=== PATIENT | female | born 1930 | race Caucasian/White ===

== ENCOUNTER 2018-08-17 10:03 | Inpatient (IN) ==
[2018-08-17] MEDS ORDERED: SODIUM CHLORIDE 0.9% 1000ML 1,000 ML IV SCH (10:15)
[2018-08-17 10:24] LABS: Basophils # (auto) 0.03 K/uL (0-0.2); Basophils % (auto) 0.3 %; Eosinophils # (auto) 0.17 K/uL (0-0.5); Eosinophils % (auto) 1.5 %; Hematocrit (blood only) 31.1 % (37-47); Hemoglobin 10.3 g/dL (12.0-16.0); Immature Granulocytes # (auto) 0.09 K/uL (0.00-0.02); Immature Granulocytes % (auto) 0.8 %; Lymphocytes # (auto) 1.62 K/uL (1.2-3.4); Lymphocytes % (auto) 14.6 %; Mean Corpuscular Hgb Conc 33.1 g/dL (32-36); Mean Corpuscular Volume 94.8 fL (80-100); Mean Platelet Volume 9.8 fL (7.4-10.4); Monocytes # (auto) 1.01 K/uL (0.11-0.59); Monocytes % (auto) 9.1 %; Neutrophils # (auto) 8.21 K/uL (1.4-6.5); Neutrophils % (auto) 73.7 %; Platelet Count 265 K/uL (130-400); RDW Coefficient of Variation 17.7 % (11.5-14.5); RDW Standard Deviation 60.4 fL (36.4-46.3); Red Blood Count 3.28 M/uL (4.2-5.4); White Blood Count 11.13 K/uL (4.8-10.8)
[2018-08-17 10:38] LABS: Albumin Level 2.5 gm/dl (3.4-5.0); BUN Creatinine Ratio 31.9 (10-20); Calcium 8.7 mg/dl (8.5-10.1); Creatinine Clr Calc Pharmacy 12.2 ml/min; Est GFR (Non-African American) 15.5; Magnesium 2.3 mg/dl (1.8-2.4); Potassium 5.6 mmol/L (3.5-5.1)
[2018-08-17 10:41] LABS: Albumin Globulin Ratio 0.6 (0.9-2); Bilirubin,Total 0.3 mg/dl (0.2-1); Globulin 4.1 gm/dl (2.5-4.0); Total Protein 6.6 gm/dl (6.4-8.2)
[2018-08-17] MEDS ORDERED: SODIUM CHLORIDE 0.9% 1000ML 250 ML IV ONE (11:11)
[2018-08-17 11:51] LABS: Appearance Urine Turbid (Clear); Bacteria Urine Automated 4+ (Negative); Bilirubin Urine Negative (Negative); Blood Urine 1+ (Negative); Cast Urine Automated 0 /lpf (0-5); Color Urine Yellow; Epithelial Cell Urine Auto 20-30 /lpf (0-5); Glucose Urine UA Negative (Negative); Ketones Urine Negative (Negative); Leukocyte Esterase Urine 3+ (Negative); Nitrite Urine Negative (Negative); Protein Urine Negative (Negative); Specific Gravity Urine 1.017 (1.000-1.030); Urobilinogen Urine Negative (Negative); WBC Urine Automated >30 /hpf (0-5)
[2018-08-17] MEDS ORDERED: cefTRIAXone SODIUM 1,000 MG in DEXTROSE 5% 50 ML IV STA (11:57)
[2018-08-17] MEDS ORDERED: cefTRIAXone SODIUM 1000MG/50ML D5W ONE (11:59)
--- NOTE | 2018-08-17 12:02 | Emergency Department Note ---
Entered by Melyssa Timmons acting as a scribe for History of Present Illness General Chief complaint: Recheck/Abnormal Lab/Rx Stated complaint: abnormal labs Source: patient Mode of arrival: EMS Limitations: altered mental status History of Present Illness Provider complaint: Abnormal labs Onset (ago): hour(s) (today) Pain Consistency: + other (episode) Quality: + other (abnormal labs) Associated symptoms: + other (Denies: diarrhea, abdominal pain); no nausea/vomiting The patient is an 88 year old female with a history diabetes and heart disease who presents to the Emergency Room with complaints of an episode of abnormal labs starting today. Patient is currently at [facility]. The patient r eports that she does not feel sick and denies any vomiting, diarrhea, and abdominal pain. She states that she fell 1.5 weeks ago and subsequently had 2 pins placed in her left hip. She notes that she has been at rehab since and that rehab is going well. The patient reports that she received her pain medication this morning, but she is fairly groggy. HPI limited secondary to altered mental status. Home Medications Home Medications Medication Instructions Recorded Confirmed Type acetaminophen [Tylenol Extra 500 mg PO Q4H PRN 08/17/18 08/17/18 History Strength] allopurinol 300 mg PO DAILY 08/17/18 08/17/18 History aspirin 81 mg PO DAILY 08/17/18 08/17/18 History atorvastatin 10 mg PO HS 08/17/18 08/17/18 History bisacodyl 10 mg [place] DAILY PRN 08/17/18 08/17/18 History carvedilol 12.5 mg PO BIDM 08/17/18 08/17/18 History cholecalciferol (vitamin D3) 2,000 unit PO DAILY 08/17/18 08/17/18 History [Vitamin D3] docusate sodium [Colace] 100 mg PO BID 08/17/18 08/17/18 History enoxaparin [Lovenox] 30 mg SUBCUT DAILY 08/17/18 08/17/18 History ferrous sulfate 325 mg PO DAILY 08/17/18 08/17/18 History furosemide [Lasix] 40 mg PO DAILY 08/17/18 08/17/18 History glipizide 2.5 mg PO DAILY 08/17/18 08/17/18 History insulin aspart U-100 [Novolog 1 sliding scale dose SUBCUT ACHS 08/17/18 08/17/18 History U-100 Insulin aspart] lidocaine [Lidoderm] 2 patch TOPICAL QAM 08/17/18 08/17/18 History lisinopril 10 mg PO DAILY 08/17/18 08/17/18 History magnesium hydroxide 30 ml PO DAILY PRN 08/17/18 08/17/18 History olanzapine 7.5 mg PO HS 08/17/18 08/17/18 History pantoprazole [Protonix] 40 mg PO BID 08/17/18 08/17/18 History sennosides [senna] 8.6 mg PO QAM PRN 08/17/18 08/17/18 History sertraline 25 mg PO DAILY 08/17/18 08/17/18 History sodium phosphates [Fleet Enema] 133 ml [place] DAILY PRN 08/17/18 08/17/18 History tramadol 50 mg PO Q4H PRN 08/17/18 08/17/18 History Allergies Allergy/AdvReac Type Severity Reaction Status Date / Time No Known Allergies Allergy Unverified 08/17/18 10:54 Past Med/Surg History Medical History DM2 (diabetes mellitus, type 2) (Chronic) CHF (congestive heart failure) Hyperkalemia (Acute) Acute renal insufficiency (Acute) UTI (urinary tract infection) (Acute) Heart disease (Chronic) Diabetes (Chronic) Surgical History Status post hip surgery (Resolved) Social History Preferred Language: Marshallese Communication Ability: Impaired Routeman Required: No Beliefs That Will Affect Care: None marital status: Current Living Situation: Rehab current occupational status: retired Other Information That Helps Us Care for You: No Feels Safe at Home: Yes Safety Concerns: Feels Safe At This Time Smoking Status: Never smoker Do You Dip or Chew Tobacco: No Second Hand Exposure: No Tobacco Cessation Education Requested by Patient: No Hx Alcohol Use: No Hx Substance Use: No Review of Systems Other (Limited secondary to altered mental status) Physical Exam Vital Signs Vital Signs - 24 hr 08/17/18 23:13 08/18/18 04:00 08/18/18 08:03 Temperature 36.4 C L 37.0 C Temperature Source Oral Oral Pulse Rate Pulse Rate [Left Finger] 72 83 77 Respiratory Rate 20 16 19 Respiratory Effort / Characteristics Respiratory Depth Respiratory Pattern Blood Pressure [Left Arm] Blood Pressure [Right Arm] 129/60 141/73 H 127/57 L Blood Pressure Mean [Left Arm] Blood Pressure Mean [Right Arm] 83 95 80 Blood Pressure Position [Left Arm] Blood Pressure Position [Right Arm] Lying Lying Pulse Oximetry 98 91 91 Oxygen Delivery Method Nasal Cannula Room Air Room Air Oxygen Flow Rate 2 08/18/18 09:30 08/18/18 11:09 08/18/18 12:00 Temperature 36.5 C Temperature Source Axillary Pulse Rate 75 Pulse Rate [Left Finger] 76 Respiratory Rate 18 Respiratory Effort / Characteristics Non-Labored Spontaneous Respiratory Depth Normal Normal Respiratory Pattern Regular Blood Pressure [Left Arm] 112/70 Blood Pressure [Right Arm] Blood Pressure Mean [Left Arm] 84 Blood Pressure Mean [Right Arm] Blood Pressure Position [Left Arm] Lying Blood Pressure Position [Right Arm] Pulse Oximetry 91 Oxygen Delivery Method Room Air Room Air Oxygen Flow Rate 08/18/18 15:13 08/18/18 16:00 08/18/18 19:51 Temperature 36.8 C 36.8 C Temperature Source Oral Oral Pulse Rate Pulse Rate [Left Finger] 66 70 Respiratory Rate 24 14 Respiratory Effort / Characteristics Non-Labored Respiratory Depth Normal Normal Respiratory Pattern Regular Blood Pressure [Left Arm] 149/77 H Blood Pressure [Right Arm] 132/60 Blood Pressure Mean [Left Arm] 101 Blood Pressure Mean [Right Arm] 84 Blood Pressure Position [Left Arm] Blood Pressure Position [Right Arm] Lying Pulse Oximetry 95 93 Oxygen Delivery Method Room Air Room Air Oxygen Flow Rate Vital signs reviewed. General: Elderly sedate-appearing female, in no significant distress. HEENT: No scleral icterus, PERRLA, neck supple. Atraumatic. Cardiovascular: Regular rate and rhythm, no extra sounds. Pulmonary: Clear to auscultation bilaterally, normal work of breathing. Abdomen: Soft, nontender, nondistended, positive bowel sounds. Musculoskeletal: Atraumatic, no peripheral edema. Walking boot on left foot. Neurologic: Patient is somnolent but arousable. She answers questions with one word answers, seemingly appropriately. Skin: Warm, dry, no rash Course 1024: The patient was evaluated in room A2, and a complete history and physical examination were performed. 1204: I reviewed the patient's case with Dr. Thayer - Hospitalist, [facility]. Dr. Thayer will evaluate the patient for further management. Consultations Consultation #1: I reviewed the patient's case with Dr. Thayer - Hospitalist, [facility]. Dr. Thayer will evaluate the patient for further management. Time: 12:04 Administered Medications Acetaminophen (Tylenol) 650 mg PO Q4H PRN PRN Reason: Pain or Fever Stop: 09/16/18 14:26 Last Admin: 08/17/18 16:07 Dose: 650 mg Documented by: [id number] Allopurinol (Zyloprim) 300 mg PO DAILY MARGARET Stop: 09/17/18 08:59 Last Admin: 08/18/18 08:50 Dose: 300 mg Documented by: [id number] Aspirin (Ecotrin Ectab) 81 mg PO DAILY AMRGARET Stop: 09/17/18 08:59 Last Admin: 08/18/18 08:50 Dose: 81 mg Documented by: [id number] Atorvastatin Calcium (Lipitor) 10 mg PO HS MARGARET Stop: 09/16/18 20:59 Last Admin: 08/18/18 20:04 Dose: 10 mg Documented by: [id number] Admin: 08/18/18 00:18 Dose: Not Given Documented by: [id number] Carvedilol (Coreg) 12.5 mg PO BIDM [facility] Stop: 09/16/18 16:59 Last Admin: 08/18/18 16:47 Dose: 12.5 mg Documented by: [id number] Admin: 08/18/18 08:48 Dose: 12.5 mg Documented by: [id number] Admin: 08/17/18 16:04 Dose: 12.5 mg Documented by: [id number] Docusate Sodium (Colace) 100 mg PO BID MARGARET Stop: 09/16/18 20:59 Last Admin: 08/18/18 20:05 Dose: Not Given Documented by: [id number] Admin: 08/18/18 08:49 Dose: Not Given Documented by: [id number] Admin: 08/17/18 21:08 Dose: Not Given Documented by: [id number] Enoxaparin Sodium (Lovenox) 30 mg SQ DAILY MARGARET Stop: 09/17/18 08:59 Last Admin: 08/18/18 09:20 Dose: 30 mg Documented by: [id number] Ferrous Sulfate (Feosol) 325 mg PO DAILY [facility] Stop: 09/17/18 08:59 Last Admin: 08/18/18 08:49 Dose: 325 mg Documented by: [id number] Sodium Chloride (Nss 1000ml) 1,000 mls @ 80 mls/hr IV .[id number] [facility] Stop: 09/16/18 14:26 Last Admin: 08/18/18 16:28 Dose: 80 mls/hr Documented by: [id number] Infusion: 08/18/18 16:28 Dose: 80 mls/hr Documented by: [id number] Admin: 08/18/18 04:31 Dose: 80 mls/hr Documented by: [id number] Infusion: 08/18/18 04:31 Dose: 80 mls/hr Documented by: [id number] Admin: 08/17/18 16:02 Dose: 80 mls/hr Documented by: [id number] Ceftriaxone Sodium 1,000 mg/ (Dextrose) 50 mls @ 100 mls/hr IV Q24H MARGARET; Pr otocol Stop: 08/27/18 11:59 Last Infusion: 08/18/18 12:05 Dose: 0 mls/hr Documented by: [id number] Admin: 08/18/18 11:34 Dose: 100 mls/hr Documented by: [id number] Insulin Aspart (Novolog Flexpen) 0 units SC ACHS MARGARET Stop: 09/16/18 16:29 Last Admin: 08/18/18 16:47 Dose: Not Given Documented by: [id number] Cosigned by: [id number] Admin: 08/18/18 11:34 Dose: Not Given Documented by: [id number] Cosigned by: [id number] Admin: 08/18/18 08:52 Dose: Not Given Documented by: [id number] Cosigned by: [id number] Admin: 08/17/18 21:08 Dose: Not Given Documented by: [id number] Cosigned by: [id number] Admin: 08/17/18 16:36 Dose: Not Given Documented by: [id number] Lidocaine (Lidoderm 5%) 2 patch TD QAM [facility] Stop: 09/17/18 08:59 Last Admin: 08/18/18 08:51 Dose: 2 patch Documented by: [id number] Miscellaneous (Remove Lidoderm Patch) 1 ea N/A DAILY@2100 [facility] Stop: 09/16/18 20:59 Last Admin: 08/18/18 20:05 Dose: 1 ea Documented by: [id number] Admin: 08/17/18 23:13 Dose: 1 ea Documented by: [id number] Olanzapine (Zyprexa) 7.5 mg PO HS MARGARET Stop: 09/16/18 20:59 Last Admin: 08/18/18 20:05 Dose: 7.5 mg Documented by: [id number] Admin: 08/18/18 00:18 Dose: Not Given Documented by: [id number] Pantoprazole Sodium (Protonix) 40 mg PO BID MARGARET Stop: 09/16/18 20:59 Last Admin: 08/18/18 20:04 Dose: 40 mg Documented by: [id number] Admin: 08/18/18 08:49 Dose: 40 mg Documented by: [id number] Admin: 08/18/18 00:18 Dose: Not Given Documented by: [id number] Sertraline HCl (Zoloft) 25 mg PO DAILY MARGARET Stop: 09/17/18 08:59 Last Admin: 08/18/18 08:50 Dose: 25 mg Documented by: [id number] Vitamin D (Vitamin D3) 2,000 units PO DAILY MARGARET Stop: 09/17/18 08:59 Last Admin: 08/18/18 08:49 Dose: 2,000 units Documented by: [id number] Discontinued Medications Ceftriaxone Sodium (Rocephin) Confirm Administered Dose 1,000 mg .ROUTE .STK-MED ONE Stop: 08/17/18 12:00 Last Admin: 08/17/18 12:00 Dose: 1,000 mg Documented by: [id number] Sodium Chloride (Nss 1000ml) 1,000 mls @ 100 mls/hr IV .Q10H MARGARET Stop: 08/17/18 20:14 Last Infusion: 08/17/18 11:17 Dose: 0 mls/hr Documented by: [id number] Admin: 08/17/18 10:39 Dose: 100 mls/hr Documented by: [id number] Sodium Chloride (Nss 1000ml) 250 mls @ 999 mls/hr IV .Q16M ONE Stop: 08/17/18 11:26 Last Infusion: 08/17/18 11:36 Dose: 0 mls/hr Documented by: [id number] Admin: 08/17/18 11:17 Dose: 999 mls/hr Documented by: [id number] Ceftriaxone Sodium 1,000 mg/ (Dextrose) 60 mls @ 100 mls/hr IV NOW STA; Protocol Stop: 08/17/18 12:32 Last Admin: 08/17/18 12:00 Dose: Not Given Documented by: [id number] Sodium Polystyrene Sulfonate (Kayexalate) 15 gm PO NOW ONE Stop: 08/17/18 13:05 Last Admin: 08/17/18 13:17 Dose: 15 gm Documented by: [id number] Medical Decision Making Differential Diagnosis Differential diagnosis: Etiologies such as metabolic, infection, hypo/hyperglycemia, electrolyte abnormalities, cardiac sources, intracerebral event, toxicologic, neurologic, as well as others were entertained. Medical Records Attestation: I reviewed the patient's medical records. Home Medications Current Medication List: was personally reviewed by me Laboratory Data Attestation: I reviewed the patient's lab results. Result diagrams: 08/18/18 05:28 08/18/18 05:28 Lab Results 08/17/18 08/17/18 08/17/18 Range/Units 10:08 10:08 10:08 WBC 11.13 H (4.8-10.8) K/uL RBC 3.28 L (4.2-5.4) M/uL Hgb 10.3 L (12.0-16.0) g/dL Hct 31.1 L (37-47) % MCV 94.8 (80-100) fL MCH 31.4 (25-34) pg MCHC 33.1 (32-36) g/dL RDW Std Deviation 60.4 H (36.4-46.3) fL RDW Coeff of Maci 17.7 H (11.5-14.5) % Plt Count 265 (130-400) K/uL MPV 9.8 (7.4-10.4) fL Immature Gran % (Auto) 0.8 % Neut % (Auto) 73.7 % Lymph % (Auto) 14.6 % [place] % (Auto) 9.1 % Eos % (Auto) 1.5 % Baso % (Auto) 0.3 % Immature Gran # (Auto) 0.09 H (0.00-0.02) K/uL Neut # (Auto) 8.21 H (1.4-6.5) K/uL Lymph # (Auto) 1.62 (1.2-3.4) K/uL [place] # (Auto) 1.01 H (0.11-0.59) K/uL Eos # (Auto) 0.17 (0-0.5) K/uL Baso # (Auto) 0.03 (0-0.2) K/uL PT (9.0-12.0) Seconds INR (0.9-1.1) APTT (21.0-31.0) Seconds PTT Ratio Sodium 132 L (136-145) mmol/L Potassium 5.6 H (3.5-5.1) mmol/L Chloride 98 (98-107) mmol/L Carbon Dioxide 26 (21-32) mmol/L Anion Gap 8.0 (3-11) BUN 84 H (7-18) mg/dl Creatinine 2.63 H (0.6-1.2) mg/dl Est Cr Clr Drug Dosing 12.2 ml/min Est GFR ( Amer) 18.0 Est GFR (Non-Af Amer) 15.5 BUN/Creatinine Ratio 31.9 H (10-20) Glucose 136 H (70-99) mg/dl POC Glucose (70-99) Osmolality (280-300) mOsm/kg Calcium 8.7 (8.5-10.1) mg/dl Magnesium 2.3 (1.8-2.4) mg/dl Total Bilirubin 0.3 (0.2-1) mg/dl AST 15 (15-37) U/L ALT 17 (12-78) U/L Alkaline Phosphatase 131 H (45-117) U/L NT-Pro-B Natriuret Pep 1802 H (0-1800) pg/ml Total Protein 6.6 (6.4-8.2) gm/dl Albumin 2.5 L (3.4-5.0) gm/dl Globulin 4.1 H (2.5-4.0) gm/dl Albumin/Globulin Ratio 0.6 L (0.9-2) Urine Color Urine Appearance (Clear) Urine pH (4.5-7.5) Ur Specific [place] (1.000-1.030) Urine Protein (Negative) Urine Glucose (UA) (Negative) Urine Ketones (Negative) Urine Blood (Negative) Urine Nitrite (Negative) Urine Bilirubin (Negative) Urine Urobilinogen (Negative) Ur Leukocyte Esterase (Negative) Urine WBC (Auto) (0-5) /hpf Urine RBC (Auto) (0-4) /hpf U Hyaline Cast (Auto) (0-5) /lpf U Epithel Cells (Auto) (0-5) /lpf Urine Bacteria (Auto) (Negative) Ur Random Creatinine mg/dl Ur Random Sodium mmol/L Stool Occult Bld Scrn (Negative) 08/17/18 08/17/18 08/17/18 Range/Units 11:30 11:30 11:30 WBC (4.8-10.8) K/uL RBC (4.2-5.4) M/uL Hgb (12.0-16.0) g/dL Hct (37-47) % MCV (80-100) fL MCH (25-34) pg MCHC (32-36) g/dL RDW Std Deviation (36.4-46.3) fL RDW Coeff of Maci (11.5-14.5) % Plt Count (130-400) K/uL MPV (7.4-10.4) fL Immature Gran % (Auto) % Neut % (Auto) % Lymph % (Auto) % [place] % (Auto) % Eos % (Auto) % Baso % (Auto) % Immature Gran # (Auto) (0.00-0.02) K/uL Neut # (Auto) (1.4-6.5) K/uL Lymph # (Auto) (1.2-3.4) K/uL [place] # (Auto) (0.11-0.59) K/uL Eos # (Auto) (0-0.5) K/uL Baso # (Auto) (0-0.2) K/uL PT (9.0-12.0) Seconds INR (0.9-1.1) APTT (21.0-31.0) Seconds PTT Ratio Sodium (136-145) mmol/L Potassium (3.5-5.1) mmol/L Chloride (98-107) mmol/L Carbon Dioxide (21-32) mmol/L Anion Gap (3-11) BUN (7-18) mg/dl Creatinine (0.6-1.2) mg/dl Est Cr Clr Drug Dosing ml/min Est GFR ( Amer) Est GFR (Non-Af Amer) BUN/Creatinine Ratio (10-20) Glucose (70-99) mg/dl POC Glucose (70-99) Osmolality (280-300) mOsm/kg Calcium (8.5-10.1) mg/dl Magnesium (1.8-2.4) mg/dl Total Bilirubin (0.2-1) mg/dl AST (15-37) U/L ALT (12-78) U/L Alkaline Phosphatase (45-117) U/L NT-Pro-B Natriuret Pep (0-1800) pg/ml Total Protein (6.4-8.2) gm/dl Albumin (3.4-5.0) gm/dl Globulin (2.5-4.0) gm/dl Albumin/Globulin Ratio (0.9-2) Urine Color Yellow Urine Appearance Turbid A (Clear) Urine pH 5.0 (4.5-7.5) Ur Specific [place] 1.017 (1.000-1.030) Urine Protein Negative (Negative) Urine Glucose (UA) Negative (Negative) Urine Ketones Negative (Negative) Urine Blood 1+ H (Negative) Urine Nitrite Negative (Negative) Urine Bilirubin Negative (Negative) Urine Urobilinogen Negative (Negative) Ur Leukocyte Esterase 3+ H (Negative) Urine WBC (Auto) >30 H (0-5) /hpf Urine RBC (Auto) 5-10 H (0-4) /hpf U Hyaline Cast (Auto) 0 (0-5) /lpf U Epithel Cells (Auto) 20-30 H (0-5) /lpf Urine Bacteria (Auto) 4+ H (Negative) Ur Random Creatinine 73.8 mg/dl Ur Random Sodium 44 Cancelled mmol/L Stool Occult Bld Scrn (Negative) 08/17/18 08/17/18 08/17/18 Range/Units 14:40 16:22 19:56 WBC (4.8-10.8) K/uL RBC (4.2-5.4) M/uL Hgb (12.0-16.0) g/dL Hct (37-47) % MCV (80-100) fL MCH (25-34) pg MCHC (32-36) g/dL RDW Std Deviation (36.4-46.3) fL RDW Coeff of Maci (11.5-14.5) % Plt Count (130-400) K/uL MPV (7.4-10.4) fL Immature Gran % (Auto) % Neut % (Auto) % Lymph % (Auto) % [place] % (Auto) % Eos % (Auto) % Baso % (Auto) % Immature Gran # (Auto) (0.00-0.02) K/uL Neut # (Auto) (1.4-6.5) K/uL Lymph # (Auto) (1.2-3.4) K/uL [place] # (Auto) (0.11-0.59) K/uL Eos # (Auto) (0-0.5) K/uL Baso # (Auto) (0-0.2) K/uL PT (9.0-12.0) Seconds INR (0.9-1.1) APTT (21.0-31.0) Seconds PTT Ratio Sodium (136-145) mmol/L Potassium (3.5-5.1) mmol/L Chloride (98-107) mmol/L Carbon Dioxide (21-32) mmol/L Anion Gap (3-11) BUN (7-18) mg/dl Creatinine (0.6-1.2) mg/dl Est Cr Clr Drug Dosing ml/min Est GFR ( Amer) Est GFR (Non-Af Amer) BUN/Creatinine Ratio (10-20) Glucose (70-99) mg/dl POC Glucose 93 102 H (70-99) Osmolality 304 H (280-300) mOsm/kg Calcium (8.5-10.1) mg/dl Magnesium (1.8-2.4) mg/dl Total Bilirubin (0.2-1) mg/dl AST (15-37) U/L ALT (12-78) U/L Alkaline Phosphatase (45-117) U/L NT-Pro-B Natriuret Pep (0-1800) pg/ml Total Protein (6.4-8.2) gm/dl Albumin (3.4-5.0) gm/dl Globulin (2.5-4.0) gm/dl Albumin/Globulin Ratio (0.9-2) Urine Color Urine Appearance (Clear) Urine pH (4.5-7.5) Ur Specific [place] (1.000-1.030) Urine Protein (Negative) Urine Glucose (UA) (Negative) Urine Ketones (Negative) Urine Blood (Negative) Urine Nitrite (Negative) Urine Bilirubin (Negative) Urine Urobilinogen (Negative) Ur Leukocyte Esterase (Negative) Urine WBC (Auto) (0-5) /hpf Urine RBC (Auto) (0-4) /hpf U Hyaline Cast (Auto) (0-5) /lpf U Epithel Cells (Auto) (0-5) /lpf Urine Bacteria (Auto) (Negative) Ur Random Creatinine mg/dl Ur Random Sodium mmol/L Stool Occult Bld Scrn (Negative) 08/17/18 08/18/18 08/18/18 Range/Units Unknown 05:28 05:28 WBC 10.08 (4.8-10.8) K/uL RBC 3.14 L (4.2-5.4) M/uL Hgb 9.8 L (12.0-16.0) g/dL Hct 30.2 L (37-47) % MCV 96.2 (80-100) fL MCH 31.2 (25-34) pg MCHC 32.5 (32-36) g/dL RDW Std Deviation 61.6 H (36.4-46.3) fL RDW Coeff of Maci 18.0 H (11.5-14.5) % Plt Count 236 (130-400) K/uL MPV 10.0 (7.4-10.4) fL Immature Gran % (Auto) 0.6 % Neut % (Auto) 77.9 % Lymph % (Auto) 12.0 % [place] % (Auto) 8.0 % Eos % (Auto) 1.2 % Baso % (Auto) 0.3 % Immature Gran # (Auto) 0.06 H (0.00-0.02) K/uL Neut # (Auto) 7.85 H (1.4-6.5) K/uL Lymph # (Auto) 1.21 (1.2-3.4) K/uL [place] # (Auto) 0.81 H (0.11-0.59) K/uL Eos # (Auto) 0.12 (0-0.5) K/uL Baso # (Auto) 0.03 (0-0.2) K/uL PT (9.0-12.0) Seconds INR (0.9-1.1) APTT (21.0-31.0) Seconds PTT Ratio Sodium 136 (136-145) mmol/L Potassium 4.8 (3.5-5.1) mmol/L Chloride 105 (98-107) mmol/L Carbon Dioxide 23 (21-32) mmol/L Anion Gap 9.0 (3-11) BUN 74 H (7-18) mg/dl Creatinine 2.17 H D (0.6-1.2) mg/dl Est Cr Clr Drug Dosing 14.8 ml/min Est GFR ( Amer) 22.7 Est GFR (Non-Af Amer) 19.6 BUN/Creatinine Ratio 34.1 H (10-20) Glucose 73 (70-99) mg/dl POC Glucose (70-99) Osmolality (280-300) mOsm/kg Calcium 8.4 L (8.5-10.1) mg/dl Magnesium (1.8-2.4) mg/dl Total Bilirubin (0.2-1) mg/dl AST (15-37) U/L ALT (12-78) U/L Alkaline Phosphatase (45-117) U/L NT-Pro-B Natriuret Pep (0-1800) pg/ml Total Protein (6.4-8.2) gm/dl Albumin (3.4-5.0) gm/dl Globulin (2.5-4.0) gm/dl Albumin/Globulin Ratio (0.9-2) Urine Color Urine Appearance (Clear) Urine pH (4.5-7.5) Ur Specific [place] (1.000-1.030) Urine Protein (Negative) Urine Glucose (UA) (Negative) Urine Ketones (Negative) Urine Blood (Negative) Urine Nitrite (Negative) Urine Bilirubin (Negative) Urine Urobilinogen (Negative) Ur Leukocyte Esterase (Negative) Urine WBC (Auto) (0-5) /hpf Urine RBC (Auto) (0-4) /hpf U Hyaline Cast (Auto) (0-5) /lpf U Epithel Cells (Auto) (0-5) /lpf Urine Bacteria (Auto) (Negative) Ur Random Creatinine mg/dl Ur Random Sodium mmol/L Stool Occult Bld Scrn Negative (Negative) 08/18/18 08/18/18 08/18/18 Range/Units 05:28 05:50 07:26 WBC (4.8-10.8) K/uL RBC (4.2-5.4) M/uL Hgb (12.0-16.0) g/dL Hct (37-47) % MCV (80-100) fL MCH (25-34) pg MCHC (32-36) g/dL RDW Std Deviation (36.4-46.3) fL RDW Coeff of Maci (11.5-14.5) % Plt Count (130-400) K/uL MPV (7.4-10.4) fL Immature Gran % (Auto) % Neut % (Auto) % Lymph % (Auto) % [place] % (Auto) % Eos % (Auto) % Baso % (Auto) % Immature Gran # (Auto) (0.00-0.02) K/uL Neut # (Auto) (1.4-6.5) K/uL Lymph # (Auto) (1.2-3.4) K/uL [place] # (Auto) (0.11-0.59) K/uL Eos # (Auto) (0-0.5) K/uL Baso # (Auto) (0-0.2) K/uL PT 10.9 (9.0-12.0) Seconds INR 1.1 (0.9-1.1) APTT 29.6 (21.0-31.0) Seconds PTT Ratio 1.1 Sodium (136-145) mmol/L Potassium (3.5-5.1) mmol/L Chloride (98-107) mmol/L Carbon Dioxide (21-32) mmol/L Anion Gap (3-11) BUN (7-18) mg/dl Creatinine (0.6-1.2) mg/dl Est Cr Clr Drug Dosing ml/min Est GFR ( Amer) Est GFR (Non-Af Amer) BUN/Creatinine Ratio (10-20) Glucose (70-99) mg/dl POC Glucose 95 106 H (70-99) Osmolality (280-300) mOsm/kg Calcium (8.5-10.1) mg/dl Magnesium (1.8-2.4) mg/dl Total Bilirubin (0.2-1) mg/dl AST (15-37) U/L ALT (12-78) U/L Alkaline Phosphatase (45-117) U/L NT-Pro-B Natriuret Pep (0-1800) pg/ml Total Protein (6.4-8.2) gm/dl Albumin (3.4-5.0) gm/dl Globulin (2.5-4.0) gm/dl Albumin/Globulin Ratio (0.9-2) Urine Color Urine Appearance (Clear) Urine pH (4.5-7.5) Ur Specific [place] (1.000-1.030) Urine Protein (Negative) Urine Glucose (UA) (Negative) Urine Ketones (Negative) Urine Blood (Negative) Urine Nitrite (Negative) Urine Bilirubin (Negative) Urine Urobilinogen (Negative) Ur Leukocyte Esterase (Negative) Urine WBC (Auto) (0-5) /hpf Urine RBC (Auto) (0-4) /hpf U Hyaline Cast (Auto) (0-5) /lpf U Epithel Cells (Auto) (0-5) /lpf Urine Bacteria (Auto) (Negative) Ur Random Creatinine mg/dl Ur Random Sodium mmol/L Stool Occult Bld Scrn (Negative) 08/18/18 08/18/18 Range/Units 11:06 16:10 WBC (4.8-10.8) K/uL RBC (4.2-5.4) M/uL Hgb (12.0-16.0) g/dL Hct (37-47) % MCV (80-100) fL MCH (25-34) pg MCHC (32-36) g/dL RDW Std Deviation (36.4-46.3) fL RDW Coeff of Maci (11.5-14.5) % Plt Count (130-400) K/uL MPV (7.4-10.4) fL Immature Gran % (Auto) % Neut % (Auto) % Lymph % (Auto) % [place] % (Auto) % Eos % (Auto) % Baso % (Auto) % Immature Gran # (Auto) (0.00-0.02) K/uL Neut # (Auto) (1.4-6.5) K/uL Lymph # (Auto) (1.2-3.4) K/uL [place] # (Auto) (0.11-0.59) K/uL Eos # (Auto) (0-0.5) K/uL Baso # (Auto) (0-0.2) K/uL PT (9.0-12.0) Seconds INR (0.9-1.1) APTT (21.0-31.0) Seconds PTT Ratio Sodium (136-145) mmol/L Potassium (3.5-5.1) mmol/L Chloride (98-107) mmol/L Carbon Dioxide (21-32) mmol/L Anion Gap (3-11) BUN (7-18) mg/dl Creatinine (0.6-1.2) mg/dl Est Cr Clr Drug Dosing ml/min Est GFR ( Amer) Est GFR (Non-Af Amer) BUN/Creatinine Ratio (10-20) Glucose (70-99) mg/dl POC Glucose 89 86 (70-99) Osmolality (280-300) mOsm/kg Calcium (8.5-10.1) mg/dl Magnesium (1.8-2.4) mg/dl Total Bilirubin (0.2-1) mg/dl AST (15-37) U/L ALT (12-78) U/L Alkaline Phosphatase (45-117) U/L NT-Pro-B Natriuret Pep (0-1800) pg/ml Total Protein (6.4-8.2) gm/dl Albumin (3.4-5.0) gm/dl Globulin (2.5-4.0) gm/dl Albumin/Globulin Ratio (0.9-2) Urine Color Urine Appearance (Clear) Urine pH (4.5-7.5) Ur Specific [place] (1.000-1.030) Urine Protein (Negative) Urine Glucose (UA) (Negative) Urine Ketones (Negative) Urine Blood (Negative) Urine Nitrite (Negative) Urine Bilirubin (Negative) Urine Urobilinogen (Negative) Ur Leukocyte Esterase (Negative) Urine WBC (Auto) (0-5) /hpf Urine RBC (Auto) (0-4) /hpf U Hyaline Cast (Auto) (0-5) /lpf U Epithel Cells (Auto) (0-5) /lpf Urine Bacteria (Auto) (Negative) Ur Random Creatinine mg/dl Ur Random Sodium mmol/L Stool Occult Bld Scrn (Negative) ECG Data Attestation: I personally reviewed and interpreted this ECG as follows: Indication: other (abnormal labs) Rate (beats per minute): 69 Rhythm: normal sinus Findings: + other (no septal infarct), + 1st degree AV block and + nonspecific- ST abn (laterally) Blood Pressure Blood Pressure Findings: Normal blood pressure MDM Narrative This pt was evaluated and appeared to be in no distress. IV access was obtained and lab work was drawn. PT was placed on the surveillance system monitor. IVF were initiated. Lab work from rehab was obtained and reveals a hyperkalemia, ARF. Repeat lab work verifies creat 2.63 with BUN 84 and K 5.6. EKG reveals no evidence of peaked T waves. Pt was given IV nss bolus of 250 mL and NSS at 125 mL/hr. UA is + for infection, IV ceftriaxone was initiated. Pt was d/w Dr Thayer of the [facility] hospitalist who will evaluate for further management. Impression & Plan Dehydration, Acute renal insufficiency, UTI (urinary tract infection) Discharge Plan Visit Data *Final* Discharge Date/Time: 08/17/18 13:44 Chief Complaint: Recheck/Abnormal Lab/Rx Stated Complaint: abnormal labs ED Provider: Kassy Cain Discharge Problem: Dehydration, Acute renal insufficiency, UTI (urinary tract infection) Patient Disposition: Admitted As Inpatient Discharge Instructions Interventions: ED Discharge Assessment Last Done: 08/17/18 13:44 Discharge Problem: UTI (urinary tract infection) Qualifiers: Urinary tract infection type: site unspecified Hematuria presence: without hematuria Qualified Code(s): N39.0 - Urinary tract infection, site not specified The scribe's documentation has been prepared under my direction and personally reviewed by me in its entirety. I confirm that the note above accurately reflects all work, treatment, procedures, and medical decision making performed by me.
--- NOTE | 2018-08-17 12:45 | XRay Report ---
XR chest 1V portable CLINICAL HISTORY: rales in lungs COMPARISON STUDY: No previous studies for comparison. FINDINGS: The heart is enlarged. There are postsurgical changes of midline sternotomy. There is a lef t subclavian pacer/defibrillator. There is diffuse elevation of the interstitium, likely secondary to congestive failure/fluid overload.[ There is no focal pulmonary consolidation. IMPRESSION: 1. Diffuse elevation of the interstitium, likely secondary to congestive failure/fluid overload. Electronically signed by: Henrik Garcia M.D. 08/17/2018 12:43 PM
[2018-08-17] MEDS ORDERED: SODIUM POLYSTYRENE SULFONATE 15G/60ML SUSP PO ONE (13:04)
[2018-08-17 13:07] LABS: Creatinine Urine Random 73.8 mg/dl
--- NOTE | 2018-08-17 13:12 | History & Physical Report ---
Date of Service August 17, 2018 Assessment & Plan (1) Acute renal insufficiency: Uncertain if the creatinine elevation is chronic or not. Zelaya catheter has been placed. Renal ultrasound is pending. Urine sodium and urine creatinine pending for fractional excretion. Nephrology consultation pending. Serial labs ordered. Lasix will be held and she will be given IV fluids judiciously. She will need to be watched closely because she may have mild congestive heart failure. Present on Admission?: Yes (2) Hyperkalemia: Telemetry. Administer Kayexalate x1 dose. Serial labs. Discontinue lisinopril Present on Admission?: Yes (3) UTI (urinary tract infection): Continue intravenous Rocephin. Await urine cultures and tailor antibiotics accordingly Present on Admission?: Yes (4) CHF (congestive heart failure): Physical exam, chest x-ray, elevated BNP all suggest mild congestive heart failure. Cardiac echo is pending. Lasix is on hold and she is receiving judicious IV fluids for suspected acute renal failure. She will need to be watched closely. Present on Admission?: Yes (5) DM2 (diabetes mellitus, type 2): ADA diet. Sliding scale coverage. Glipizide is temporarily on hold Present on Admission?: Yes History of Present Illness Chief Complaint: Weakness, abnormal lab Primary Care Provider: NO PCP 88-year-old white female with a recent left hip fracture repair in [facility]. I believe she is undergoing rehabilitation at [facility]. She had abnormal laboratory results done and was sent to the ED for evaluation. Her creatinine is 2.6 and I am not sure what her baseline creatinine is. Potassium is 5.6. BUN is 84. Physical examination however is consistent with mild CHF and chest x-ray appears to confirm mild CHF. BNP is also slightly elevated. Although she has a dry mouth this may be from medication side effect rather than from overt volume depletion. Nevertheless, Lasix will be held and judicious IV fluids administered. Renal ultrasound is pending along with urine sodium and urine creatinine for fractional excretion calculation. Serum osmolarity is pending. Nephrology consultation has been requested. Kayexalate will be administered x1 dose. Echocardiography has been requested. Lasix, lisinopril and glipizide are placed on hold. Serial lab studies have been ordered. She has requested DNR/DNI status. Allergies Allergy/AdvReac Type Severity Reaction Status Date / Time No Known Allergies Allergy Unverified 08/17/18 10:54 Home Medications Home Medications Medication Instructions Recorded Confirmed Type acetaminophen [Tylenol Extra 500 mg PO Q4H PRN 08/17/18 08/17/18 History Strength] allopurinol 300 mg PO DAILY 08/17/18 08/17/18 History aspirin 81 mg PO DAILY 08/17/18 08/17/18 History atorvastatin 10 mg PO HS 08/17/18 08/17/18 History bisacodyl 10 mg AR DAILY PRN 08/17/18 08/17/18 History carvedilol 12.5 mg PO BIDM 08/17/18 08/17/18 History cholecalciferol (vitamin D3) 2,000 unit PO DAILY 08/17/18 08/17/18 History [Vitamin D3] docusate sodium [Colace] 100 mg PO BID 08/17/18 08/17/18 History enoxaparin [Lovenox] 30 mg SUBCUT DAILY 08/17/18 08/17/18 History ferrous sulfate 325 mg PO DAILY 08/17/18 08/17/18 History furosemide [Lasix] 40 mg PO DAILY 08/17/18 08/17/18 History glipizide 2.5 mg PO DAILY 08/17/18 08/17/18 History insulin aspart U-100 [Novolog 1 sliding scale dose SUBCUT ACHS 08/17/18 08/17/18 History U-100 Insulin aspart] lidocaine [Lidoderm] 2 patch TOPICAL QAM 08/17/18 08/17/18 History lisinopril 10 mg PO DAILY 08/17/18 08/17/18 History magnesium hydroxide 30 ml PO DAILY PRN 08/17/18 08/17/18 History olanzapine 7.5 mg PO HS 08/17/18 08/17/18 History pantoprazole [Protonix] 40 mg PO BID 08/17/18 08/17/18 History sennosides [senna] 8.6 mg PO QAM PRN 08/17/18 08/17/18 History sertraline 25 mg PO DAILY 08/17/18 08/17/18 History sodium phosphates [Fleet Enema] 133 ml AR DAILY PRN 08/17/18 08/17/18 History tramadol 50 mg PO Q4H PRN 08/17/18 08/17/18 History Past Med/Surg History Medical History Heart disease (Chronic) Diabetes (Chronic) Surgical History Status post hip surgery (Resolved) Social History Preferred Language: Slovenian Communication Ability: Effective Circuit Manager Required: No Beliefs That Will Affect Care: None marital status: Current Living Situation: Rehab current occupational status: retired Other Information That Helps Us Care for You: No Feels Safe at Home: Yes Safety Concerns: Feels Safe At This Time Smoking Status: Never smoker Do You Dip or Chew Tobacco: No Second Hand Exposure: No Tobacco Cessation Education Requested by Patient: No Hx Alcohol Use: No Hx Substance Use: No Review of Systems Review of Systems: All systems reviewed & are unremarkable except as noted in HPI & below Physical Exam Constitutional: + obese; no acute distress, not ill appearing and no altered mental status Eyes: PERRL, conjunctivae normal, anicteric sclerae ENMT: external ear and nose normal, oropharynx normal Neck: trachea midline, no thyromegaly Respiratory: + abnormal respiratory effort, no respiratory distress, no labored breathing and no retractions Bibasilar inspiratory rales. No rhonchi. No wheezing Cardiovascular: Rate/Rhythm: regular rate and regular rhythm Heart Sounds: + murmur Grade 1/6 systolic murmur at the left sternal border Gastrointestinal (Abdomen): normal bowel sounds, soft, nontender, no hepatosplenomegaly Musculoskeletal: Mild pitting peripheral edema. Generalized weakness consistent with age. Healing left hip surgical scar without any signs of infection or drainage Skin: no rashes, warm and dry Neurologic: CN's II-XI intact bilaterally and moves all extremities; no focal motor deficits Results & Data Vital Signs (Past 12 Hours) Vital Signs Temp Pulse Pulse Resp BP BP Pulse Ox 08/17/18 12:03 63 18 123/54 L 99 08/17/18 11:40 88 L 08/17/18 11:37 65 18 103/35 L 91 08/17/18 11:13 76 20 115/56 L 93 08/17/18 10:14 92 08/17/18 10:08 36.5 C 71 20 110/49 L 92 Laboratory Results 08/17/18 10:08 08/17/18 10:08 (1) UTI (urinary tract infection) Hematuria presence: without hematuria Urinary tract infection type: site unspecified Qualified Code(s): N39.0 - Urinary tract infection, site not specified
[2018-08-17] MEDS ORDERED: NITROGLYCERIN SL 0.4 MG/TAB TAB SL PRN (14:27)
[2018-08-17] MEDS ORDERED: ALUMINUM/MAGNESIUM SUSP 30 ML UDC PO PRN (14:27)
[2018-08-17] MEDS ORDERED: ONDANSETRON INJ 2 MG/ML 2 ML VIAL IV PRN (14:27)
[2018-08-17] MEDS ORDERED: BISACODYL 10 MG SUPP PR PRN (14:27)
[2018-08-17] MEDS ORDERED: SOD PHOSPHATE/SOD BIPHOSPHATE ENEMA 132 ML BTL PR PRN (14:27)
[2018-08-17] MEDS ORDERED: TRAMADOL HCL 50 MG TABLET PO PRN (14:27)
[2018-08-17] MEDS ORDERED: ACETAMINOPHEN 500 MG TAB PO PRN (14:27)
[2018-08-17] MEDS ORDERED: SENNA 8.6 MG TAB PO PRN (14:27)
[2018-08-17] MEDS ORDERED: MAGNESIUM HYDROXIDE SUSP 30 ML UDC PO PRN (14:27)
[2018-08-17] MEDS: SODIUM CHLORIDE 0.9% 1000ML 1,000 ML IV SCH (16:02)
[2018-08-17] MEDS: CARVEDILOL 12.5 MG TAB PO SCH (16:04)
[2018-08-17] MEDS: ACETAMINOPHEN 325 MG TAB PO PRN (16:07)
[2018-08-17] MEDS: INSULIN ASPART 100 UNITS/ML 3 ML PEN SC SCH ×2 (16:36→21:08)
--- NOTE | 2018-08-17 18:11 | Ultrasound Report ---
EXAMINATION: RENAL ULTRASOUND CLINICAL HISTORY: Acute kidney injury COMPARISON STUDY: None FINDINGS: The examination was difficult from a technical standpoint. The study is performed portably in the pat ient was unresponsive and unable to cooperate. The right kidney measures 7.8 cm. The left kidney measures 9.7 cm. There is no evidence of hydroneph rosis. There is bilateral renal cortical thinning. The bladder was not visualized. The patient has a Zelaya catheter in place. IMPRESSION : 1. Technically difficult study 2. Bilateral renal cortical thinning 3. No evidence of hydronephrosis Electronically signed by: Henrik Garcia M.D. 08/17/2018 6:10 PM
[2018-08-17] MEDS: DOCUSATE SODIUM 100 MG CAP PO SCH (21:08)
[2018-08-18] MEDS: OLANZapine 5 MG TABLET PO SCH ×2 (00:18→20:05)
[2018-08-18] MEDS: PANTOprazole 40 MG TAB PO SCH ×3 (00:18→20:04)
[2018-08-18] MEDS: ATORVASTATIN 10 MG TAB PO SCH ×2 (00:18→20:04)
[2018-08-18] MEDS: SODIUM CHLORIDE 0.9% 1000ML 1,000 ML IV SCH ×2 (04:31→16:28)
[2018-08-18 05:54] LABS: Basophils # (auto) 0.03 K/uL (0-0.2); Basophils % (auto) 0.3 %; Eosinophils # (auto) 0.12 K/uL (0-0.5); Eosinophils % (auto) 1.2 %; Hematocrit (blood only) 30.2 % (37-47); Hemoglobin 9.8 g/dL (12.0-16.0); Immature Granulocytes # (auto) 0.06 K/uL (0.00-0.02); Immature Granulocytes % (auto) 0.6 %; Lymphocytes # (auto) 1.21 K/uL (1.2-3.4); Mean Corpuscular Hgb Conc 32.5 g/dL (32-36); Mean Corpuscular Volume 96.2 fL (80-100); Monocytes # (auto) 0.81 K/uL (0.11-0.59); Neutrophils # (auto) 7.85 K/uL (1.4-6.5); Neutrophils % (auto) 77.9 %; Platelet Count 236 K/uL (130-400); RDW Standard Deviation 61.6 fL (36.4-46.3); Red Blood Count 3.14 M/uL (4.2-5.4); White Blood Count 10.08 K/uL (4.8-10.8)
[2018-08-18 06:20] LABS: Est GFR (African American) 22.7; INR 1.1 (0.9-1.1); Partial Thromboplastin Ratio 1.1; Partial Thromboplastin Time 29.6 Seconds (21.0-31.0); Potassium 4.8 mmol/L (3.5-5.1); Prothrombin Time 10.9 Seconds (9.0-12.0)
[2018-08-18 06:21] LABS: BUN Creatinine Ratio 34.1 (10-20); Calcium 8.4 mg/dl (8.5-10.1); Creatinine Clr Calc Pharmacy 14.8 ml/min; Est GFR (Non-African American) 19.6
--- NOTE | 2018-08-18 08:28 | Hospitalist Progress Note ---
Date of Service August 18, 2018 Assessment & Plan (1) Acute renal insufficiency: Uncertain if the creatinine elevation is chronic or not. Zelaya catheter has been placed. Renal ultrasound shows chronic renal disease Nephrology consultation feels is secondary to dehydration diuretics and SHAHEEN inhibitor therapy Echocardiogram is normal therefore we will continue IV fluids Initial x-ray suggesting mild congestive heart failure may be more interstitial lung disease (2) Hyperkalemia: Telemetry. Administered Kayexalate x1 dose. Discontinue lisinopril, potassium improved (3) UTI (urinary tract infection): Currently on intravenous Rocephin. pending urine cultures (4) CHF (congestive heart failure): chronic HFpEF also considering interstitial lung disease we will repeat chest x-ray if symptoms worsen (5) DM2 (diabetes mellitus, type 2): ADA diet. Sliding scale coverage. Glipizide is on hold Subjective Patient is slightly confused likely with some baseline dementia her kidney function and creatinine are both improving. Her echocardiogram shows no significant abnormalities and a renal ultrasound is only with cortical thinning. Review of Systems Review of Systems: Unobtainable due to cognitive status ROS: The patient is confused therefore the validity of this review of systems is in question however I did ask her the screening questions below No double vision blurry vision No problems with speech or swallowing No palpitations, chest pain or pressure No Wheezing or breathing issues No abdominal pain nausea vomiting diarrhea No burning urine urine frequency or changes in color No focal joint pain or muscle pain No skin rashes or oral lesions No unusual bruising or bleeding No focused back pain or numbness or loss of strength Physical Exam Physical Exam: The patient appeared well nourished and normally developed. Vital signs as documented. She is lethargic at times and only oriented to current time Head exam is unremarkable. normocephalic, atraumatic Neck is without jugular venous distension, thyromegaly, or lymphademopathy Lungs are clear to auscultation and percussion. Cardiac exam reveals Rhythm is regular. Systolic murmur is heard Abdominal exam reveals normal bowel sounds, no masses, no organomegaly Extremities are nonedematous and both pedal pulses are present Neurologic exam is A&Ox2, no focal deficits, strength is equal bilateral but markedly diminished in lower extremities bilaterally she claims left is worse than the right but there about even Psychologically seems anxious Skin is warm Dry Results & Data Vital Signs (Past 12 Hours) Vital Signs Temp Pulse Resp BP Pulse Ox 08/18/18 08:03 37.0 C 77 19 127/57 L 91 08/18/18 04:00 36.4 C L 83 16 141/73 H 91 08/17/18 23:13 72 20 129/60 98 (1) UTI (urinary tract infection) Hematuria presence: without hematuria Urinary tract infection type: site unspecified Qualified Code(s): N39.0 - Urinary tract infection, site not specified
[2018-08-18] MEDS: CARVEDILOL 12.5 MG TAB PO SCH ×2 (08:48→16:47)
[2018-08-18] MEDS: CHOLECALCIFEROL 1,000 UNITS TAB PO SCH (08:49)
[2018-08-18] MEDS: DOCUSATE SODIUM 100 MG CAP PO SCH ×2 (08:49→20:05)
[2018-08-18] MEDS: FERROUS SULFATE 325 MG TAB PO SCH (08:49)
[2018-08-18] MEDS: ALLOPURINOL 300 MG TAB PO SCH (08:50)
[2018-08-18] MEDS: SERTRALINE HCL 50 MG TABLET PO SCH (08:50)
[2018-08-18] MEDS: ASPIRIN 81 MG ECTAB PO SCH (08:50)
[2018-08-18] MEDS: LIDOCAINE 5% 1 PATCH TD SCH (08:51)
[2018-08-18] MEDS: INSULIN ASPART 100 UNITS/ML 3 ML PEN SC SCH ×4 (08:52→21:44)
[2018-08-18] MEDS: ENOXAPARIN INJ 30 MG/0.3 ML SYR SQ SCH (09:20)
[2018-08-18] MEDS: cefTRIAXone SODIUM 1,000 MG in DEXTROSE 5% 50 ML IV SCH (11:34)
--- NOTE | 2018-08-18 12:36 | Nephrology Consultation ---
Date of Consultation August 18, 2018 Assessment & Plan (1) Acute renal insufficiency: ROBBY related to cystitis and dehydration in the setting of SHAHEEN inhibitor and loop diuretic therapy -- Continue to hold Lisinopril and Furosemide -- Continue gentle hydration w/ 0.9 NS -- Patient is nonoliguric. Renal US is negative for obstruction. Patient appears clinically volume contracted. Creatinine is trending down w/ gentle hydration -- Baseline creatinine is unknown. Will request creatinine values from [facility]. Suspect an element of CKD given small kidney size and renal asymmetry -- Monitor serial PRP (2) UTI (urinary tract infection): -- Urine culture has grown E. Coli and Lactobacillus. Awaiting sensitivities. Patient has been given IV Ceftriaxone (3) Hyperkalemia: -- Resolved following one dose SPS (4) DM2 (diabetes mellitus, type 2): (5) Status post hip surgery: (6) Cardiomyopathy: History of Present Illness Reason for Consultation: Evaluation of ROBBY Attending Physician: Chris Crowder MD History of Present Illness Ms. Shelby is an 88 year old white female who is seen at the request of Dr. Thayer for evaluation of ROBBY. Medical records in the EMR were reviewed today and are summarized as follows: Ms. Shelby has a documented h/o AODM, HTN, CMP. She resides in [place], [place]. Approximately 10 days ago she suffered a mechanical fall and fractured her hip. She was admitted to [facility] and required Orthopedic pinning. She was then transferred to [facility] for physical therapy. While at [facility] she became lethargic. Laboratory studies revealed ROBBY w/ creatinine 2.6 (baseline unknown, no PCP on file), hyperkalemia (K 5.6) and urinalysis c/w infection. Ms. Shelyb was then transferred to [facility] for ongoing medical management. Lisinopril has been held. Patient was felt to be clinically dehydrated. Gentle IV hydration is being provided. Nephrology consultation has been requested for evaluation of ROBBY Allergies Allergy/AdvReac Type Severity Reaction Status Date / Time No Known Allergies Allergy Unverified 08/17/18 10:54 Home Medications Home Medications Medication Instructions Recorded Confirmed Type acetaminophen [Tylenol Extra 500 mg PO Q4H PRN 08/17/18 08/17/18 History Strength] allopurinol 300 mg PO DAILY 08/17/18 08/17/18 History aspirin 81 mg PO DAILY 08/17/18 08/17/18 History atorvastatin 10 mg PO HS 08/17/18 08/17/18 History bisacodyl 10 mg PA DAILY PRN 08/17/18 08/17/18 History carvedilol 12.5 mg PO BIDM 08/17/18 08/17/18 History cholecalciferol (vitamin D3) 2,000 unit PO DAILY 08/17/18 08/17/18 History [Vitamin D3] docusate sodium [Colace] 100 mg PO BID 08/17/18 08/17/18 History enoxaparin [Lovenox] 30 mg SUBCUT DAILY 08/17/18 08/17/18 History ferrous sulfate 325 mg PO DAILY 08/17/18 08/17/18 History furosemide [Lasix] 40 mg PO DAILY 08/17/18 08/17/18 History glipizide 2.5 mg PO DAILY 08/17/18 08/17/18 History insulin aspart U-100 [Novolog 1 sliding scale dose SUBCUT ACHS 08/17/18 08/17/18 History U-100 Insulin aspart] lidocaine [Lidoderm] 2 patch TOPICAL QAM 08/17/18 08/17/18 History lisinopril 10 mg PO DAILY 08/17/18 08/17/18 History magnesium hydroxide 30 ml PO DAILY PRN 08/17/18 08/17/18 History olanzapine 7.5 mg PO HS 08/17/18 08/17/18 History pantoprazole [Protonix] 40 mg PO BID 08/17/18 08/17/18 History sennosides [senna] 8.6 mg PO QAM PRN 08/17/18 08/17/18 History sertraline 25 mg PO DAILY 08/17/18 08/17/18 History sodium phosphates [Fleet Enema] 133 ml PA DAILY PRN 08/17/18 08/17/18 History tramadol 50 mg PO Q4H PRN 08/17/18 08/17/18 History Patient History Medical History DM2 (diabetes mellitus, type 2) (Chronic) CHF (congestive heart failure) Hyperkalemia (Acute) Acute renal insufficiency (Acute) UTI (urinary tract infection) (Acute) Heart disease (Chronic) Diabetes (Chronic) Surgical History Status post hip surgery (Resolved) Social History Preferred Language: Vietnamese Communication Ability: Impaired Technology Assistant Required: No Beliefs That Will Affect Care: None marital status: Current Living Situation: Rehab current occupational status: retired Other Information That Helps Us Care for You: No Feels Safe at Home: Yes Safety Concerns: Feels Safe At This Time Smoking Status: Never smoker Do You Dip or Chew Tobacco: No Second Hand Exposure: No Tobacco Cessation Education Requested by Patient: No Hx Alcohol Use: No Hx Substance Use: No Review of Systems Review of Systems: Unobtainable due to cognitive status Physical Exam Eyes: PERRL, conjunctivae normal, anicteric sclerae Neck: trachea midline, no thyromegaly Respiratory: normal respiratory effort, lungs clear to auscultation Cardiovascular: RRR, no murmur, no edema poor skin turgor involving the arms and legs Gastrointestinal (Abdomen): normal bowel sounds, soft, nontender, no hepatosplenomegaly Results & Data Vital Signs (Past 12 Hours) Vital Signs Temp Pulse Resp BP BP Pulse Ox 08/18/18 11:09 36.5 C 76 18 112/70 91 08/18/18 08:03 37.0 C 77 19 127/57 L 91 08/18/18 04:00 36.4 C L 83 16 141/73 H 91 Laboratory Results Laboratory Tests 08/17/18 08/18/18 08/18/18 11:30 05:28 05:28 WBC 10.08 Hgb 9.8 L Hct 30.2 L Plt Count 236 Sodium 136 Potassium 4.8 Chloride 105 Carbon Dioxide 23 BUN 74 H Creatinine 2.17 H D Glucose 73 Calcium 8.4 L Urine Color Yellow Urine Appearance Turbid A Urine pH 5.0 Ur Specific [place] 1.017 Urine Protein Negative Urine Glucose (UA) Negative Urine Blood 1+ H Urine Nitrite Negative Ur Leukocyte Esterase 3+ H Urine WBC (Auto) >30 H Urine RBC (Auto) 5-10 H U Epithel Cells (Auto) 20-30 H Urine Bacteria (Auto) 4+ H Diagnostic Findings Renal US 08/17/18: The right kidney measures 7.8 cm. The left kidney measures 9.7 cm. There is no evidence of hydronephrosis. There is bilateral renal cortical thinning. The bladder was not visualized. The patient has a Zelaya catheter in place. (1) UTI (urinary tract infection) Hematuria presence: without hematuria Urinary tract infection type: site unspecified Qualified Code(s): N39.0 - Urinary tract infection, site not specified
[2018-08-19] MEDS: SODIUM CHLORIDE 0.9% 1000ML 1,000 ML IV SCH ×2 (03:50→15:20)
[2018-08-19 06:07] LABS: Basophils # (auto) 0.02 K/uL (0-0.2); Basophils % (auto) 0.2 %; Eosinophils # (auto) 0.21 K/uL (0-0.5); Eosinophils % (auto) 2.1 %; Hematocrit (blood only) 28.2 % (37-47); Hemoglobin 9.2 g/dL (12.0-16.0); Immature Granulocytes # (auto) 0.04 K/uL (0.00-0.02); Immature Granulocytes % (auto) 0.4 %; Lymphocytes # (auto) 1.71 K/uL (1.2-3.4); Lymphocytes % (auto) 17.4 %; Mean Corpuscular Hgb Conc 32.6 g/dL (32-36); Mean Corpuscular Volume 96.9 fL (80-100); Mean Platelet Volume 10.4 fL (7.4-10.4); Monocytes % (auto) 8.1 %; Neutrophils # (auto) 7.07 K/uL (1.4-6.5); Neutrophils % (auto) 71.8 %; Platelet Count 224 K/uL (130-400); RDW Standard Deviation 62.2 fL (36.4-46.3); Red Blood Count 2.91 M/uL (4.2-5.4); White Blood Count 9.85 K/uL (4.8-10.8)
[2018-08-19 06:44] LABS: BUN Creatinine Ratio 37.4 (10-20); Calcium 8.4 mg/dl (8.5-10.1); Creatinine Clr Calc Pharmacy 19.2 ml/min; Est GFR (African American) 30.5; Est GFR (Non-African American) 26.3; Potassium 4.7 mmol/L (3.5-5.1)
--- NOTE | 2018-08-19 07:59 | Hospitalist Progress Note ---
Date of Service August 19, 2018 Assessment & Plan (1) Acute renal insufficiency: Cr with gradual steady improvement. Zelaya catheter has been placed. Renal ultrasound shows chronic renal disease Nephrology consultation feels is secondary to dehydration diuretics and SHAHEEN inhibitor therapy Echocardiogram is normal therefore we will continue IV fluids Initial x-ray suggesting mild congestive heart failure may be more interstitial lung disease (2) Hyperkalemia: Telemetry. Administered Kayexalate x1 dose. Discontinued lisinopril, potassium improved (3) UTI (urinary tract infection): Currently on intravenous Rocephin.cultures suggest a pcn resistent E coli poa, can consider de escalation to cipro po (4) CHF (congestive heart failure): chronic HFpEF also considering interstitial lung disease seems to have handled rehydration without issue (5) DM2 (diabetes mellitus, type 2): ADA diet. Sliding scale coverage. Glipizide will resume and will stop CF on ssi Subjective Patient is much more awake and alert she is pleasantly confused did poorly in physical therapy and occupational therapy raising the concern of her returning to acute rehab and may be shifting her focus towards subacute rehab she denies any focal complaints Review of Systems Review of Systems: ROS: She appears frail No double vision blurry vision No problems with speech or swallowing No palpitations, chest pain or pressure No Wheezing or breathing issues No abdominal pain nausea vomiting diarrhea changes in appetite or weight No burning urine urine frequency or changes in color No focal joint pain or muscle pain No skin rashes or oral lesions No unusual bruising or bleeding No focused back pain or numbness or loss of strength Baseline dementia Physical Exam Physical Exam: The patient appeared fatigued and confused Vital signs as documented. Head exam is unremarkable. normocephalic, atraumatic Neck is without jugular venous distension, thyromegaly, or lymphademopathy Lungs are clear to auscultation and percussion. Cardiac exam reveals Rhythm is regular. First and second heart sounds normal. Abdominal exam reveals normal bowel sounds, no masses, no organomegaly Extremities are mildly edematous and both pedal pulses are present Neurologic exam is A&Ox2, no focal deficits, strength is equal bilateral balance is off as I observed physical therapy today Psychologically seems of dementia Skin is warm Dry without bruises or lesions Results & Data Vital Signs (Past 12 Hours) Vital Signs Temp Pulse Resp BP Pulse Ox 08/19/18 06:35 36.6 C 86 24 149/76 H 94 08/19/18 03:27 36.8 C 74 20 118/90 94 08/18/18 23:11 36.8 C 84 22 134/57 L 92 (1) UTI (urinary tract infection) Hematuria presence: without hematuria Urinary tract infection type: site unspecified Qualified Code(s): N39.0 - Urinary tract infection, site not specified
[2018-08-19] MEDS: INSULIN ASPART 100 UNITS/ML 3 ML PEN SC SCH ×4 (09:33→22:52)
[2018-08-19] MEDS: CHOLECALCIFEROL 1,000 UNITS TAB PO SCH (09:33)
[2018-08-19] MEDS: DOCUSATE SODIUM 100 MG CAP PO SCH ×2 (09:33→20:09)
[2018-08-19] MEDS: CARVEDILOL 12.5 MG TAB PO SCH ×2 (09:33→17:00)
[2018-08-19] MEDS: PANTOprazole 40 MG TAB PO SCH ×2 (09:33→20:10)
[2018-08-19] MEDS: ALLOPURINOL 300 MG TAB PO SCH (09:34)
[2018-08-19] MEDS: ASPIRIN 81 MG ECTAB PO SCH (09:34)
[2018-08-19] MEDS: FERROUS SULFATE 325 MG TAB PO SCH (09:34)
[2018-08-19] MEDS: SERTRALINE HCL 50 MG TABLET PO SCH (09:34)
[2018-08-19] MEDS: LIDOCAINE 5% 1 PATCH TD SCH (09:35)
[2018-08-19] MEDS: ENOXAPARIN INJ 30 MG/0.3 ML SYR SQ SCH (09:35)
--- NOTE | 2018-08-19 10:12 | Nephrology Progress Note ---
Date of Service August 19, 2018 Assessment & Plan (1) Acute renal insufficiency: ROBBY related to cystitis and dehydration in the setting of SHAHEEN inhibitor and loop diuretic therapy -- Patient is nonoliguric. Renal US is negative for obstruction. Patient appears clinically volume contracted. Creatinine is trending down w/ gentle hydration -- Continue gentle hydration w/ 0.9 NS. Patient has no clinical evidence of volume overload -- Continue to hold Lisinopril and Furosemide -- Baseline creatinine is unknown. Will request last OV note and creatinine values from PCP. Suspect an element of CKD given small kidney size and renal asymmetry -- Monitor serial PRP (2) UTI (urinary tract infection): -- Urine culture has grown E. Coli and Lactobacillus. Awaiting sensitivities. Patient has been given IV Ceftriaxone (3) Hyperkalemia: -- Resolved following one dose SPS (4) DM2 (diabetes mellitus, type 2): (5) Status post hip surgery: (6) Cardiomyopathy: Subjective Ms. Shelby was seen & examined in her hospital room this morning. She is more alert. She was oriented to self and place but not time. Ms. Shelby voiced no medical concerns. She reports that her PCP is Dr. Grzegorz Medley in [place], [place]. Review of Systems Respiratory: no cough and no dyspnea Cardiovascular: no chest pain Gastrointestinal: no abdominal pain, no vomiting and no diarrhea/loose stools Physical Exam Eyes: PERRL, conjunctivae normal, anicteric sclerae Neck: trachea midline, no thyromegaly Respiratory: normal respiratory effort, lungs clear to auscultation Cardiovascular: RRR, no murmur, no edema Gastrointestinal (Abdomen): normal bowel sounds, soft, nontender, no hepatospl enomegaly Results & Data Vital Signs (Past 12 Hours) Vital Signs Temp Pulse Resp BP Pulse Ox 08/19/18 06:35 36.6 C 86 24 149/76 H 94 08/19/18 03:27 36.8 C 74 20 118/90 94 08/18/18 23:11 36.8 C 84 22 134/57 L 92 Laboratory Results Laboratory Tests 08/19/18 05:31 Sodium 140 Potassium 4.7 Chloride 109 H Carbon Dioxide 23 BUN 64 H Creatinine 1.70 H D Glucose 90 (1) UTI (urinary tract infection) Hematuria presence: without hematuria Urinary tract infection type: site unspecified Qualified Code(s): N39.0 - Urinary tract infection, site not specified
[2018-08-19] MEDS: glipiZIDE ER 2.5 MG TABCR PO SCH (11:04)
[2018-08-19] MEDS: cefTRIAXone SODIUM 1,000 MG in DEXTROSE 5% 50 ML IV SCH (12:58)
[2018-08-19] MEDS: ATORVASTATIN 10 MG TAB PO SCH (20:10)
[2018-08-19] MEDS: CIPROFLOXACIN 250 MG TAB PO SCH (20:10)
[2018-08-19] MEDS: OLANZapine 5 MG TABLET PO SCH (20:13)
[2018-08-20] MEDS: SODIUM CHLORIDE 0.9% 1000ML 1,000 ML IV SCH
--- NOTE | 2018-08-20 00:04 | Progress Note ---
Date of Service August 20, 2018 at 12:07 am Received a page from the patient's nurse with concerns that the patient was becoming more short of breath. Her concern was potential fluid overload from IV fluids throughout today. Saw patient at bedside. She is wide awake, sitting on the side of her bed, pleasantly confused, and does not appear in acute respiratory distress. Heart is regular rate and rhythm. Lungs have faint rales at bases. SpO2 is 98% on 2 L nasal cannula. Portable chest x-ray shows continued interstitial prominence, questionable increase more peripherally on the right side. Formal radiology read pending. Plan: We will continue to monitor overall respiratory status. No acute interventions at this time. Vel Luke, PGY2 Overnight call Results & Data Vital Signs (Past 12 Hours) Vital Signs Temp Pulse Pulse Resp BP Pulse Ox 08/19/18 23:23 36.5 C 68 20 155/78 H 98 08/19/18 19:07 36.4 C L 70 16 170/89 H 95 08/19/18 16:00 71 08/19/18 15:00 36.8 C 69 18 161/59 H 96
[2018-08-20] MEDS ORDERED: ALBUT/IPRATROP 3MG/0.5MG NEB 3 ML VIAL NEB STA (05:27)
--- NOTE | 2018-08-20 07:21 | XRay Report ---
XR chest 1V portable HISTORY: Shortness of breath. COMPARISON: Chest 08/17/2018. FINDINGS: There are low lung volume. Left-sided pacemaker/defibrillator is again noted. No pneumothor ax. Poststernotomy changes. Mild cardiomegaly. Retrocardiac lucency favors a hiatus hernia. Mild inte rstitial thickening, unchanged. This favors mild pulmonary edema. No pleural effusions. IMPRESSION: No change in the mild interstitial pulmonary edema. Electronically signed by: Candido Dominguez M.D. 08/20/2018 7:20 AM
[2018-08-20 08:11] LABS: Basophils # (auto) 0.02 K/uL (0-0.2); Basophils % (auto) 0.2 %; Eosinophils # (auto) 0.16 K/uL (0-0.5); Eosinophils % (auto) 1.5 %; Hematocrit (blood only) 29.2 % (37-47); Hemoglobin 9.5 g/dL (12.0-16.0); Immature Granulocytes # (auto) 0.06 K/uL (0.00-0.02); Immature Granulocytes % (auto) 0.6 %; Lymphocytes # (auto) 1.25 K/uL (1.2-3.4); Mean Corpuscular Hgb Conc 32.5 g/dL (32-36); Mean Corpuscular Volume 97.7 fL (80-100); Mean Platelet Volume 9.8 fL (7.4-10.4); Monocytes # (auto) 1.28 K/uL (0.11-0.59); Monocytes % (auto) 12.2 %; Neutrophils # (auto) 7.69 K/uL (1.4-6.5); Neutrophils % (auto) 73.5 %; Platelet Count 197 K/uL (130-400); RDW Coefficient of Variation 18.3 % (11.5-14.5); RDW Standard Deviation 64.5 fL (36.4-46.3); Red Blood Count 2.99 M/uL (4.2-5.4); White Blood Count 10.46 K/uL (4.8-10.8)
[2018-08-20 08:43] LABS: BUN Creatinine Ratio 40.5 (10-20); Calcium 8.8 mg/dl (8.5-10.1); Creatinine Clr Calc Pharmacy 28.1 ml/min; Est GFR (African American) 48.9; Est GFR (Non-African American) 42.2; Potassium 4.4 mmol/L (3.5-5.1)
[2018-08-20] MEDS: INSULIN ASPART 100 UNITS/ML 3 ML PEN SC SCH ×4 (08:43→21:02)
[2018-08-20] MEDS: PANTOprazole 40 MG TAB PO SCH ×2 (09:25→21:01)
[2018-08-20] MEDS: CARVEDILOL 12.5 MG TAB PO SCH ×2 (09:25→17:15)
[2018-08-20] MEDS: ASPIRIN 81 MG ECTAB PO SCH (09:25)
[2018-08-20] MEDS: CHOLECALCIFEROL 1,000 UNITS TAB PO SCH (09:25)
[2018-08-20] MEDS: glipiZIDE ER 2.5 MG TABCR PO SCH (09:25)
[2018-08-20] MEDS: DOCUSATE SODIUM 100 MG CAP PO SCH ×2 (09:25→21:02)
[2018-08-20] MEDS: ALLOPURINOL 300 MG TAB PO SCH (09:25)
[2018-08-20] MEDS: CIPROFLOXACIN 250 MG TAB PO SCH ×2 (09:25→21:02)
[2018-08-20] MEDS: FERROUS SULFATE 325 MG TAB PO SCH (09:25)
[2018-08-20] MEDS: ENOXAPARIN INJ 30 MG/0.3 ML SYR SQ SCH (09:25)
[2018-08-20] MEDS: LIDOCAINE 5% 1 PATCH TD SCH (09:26)
[2018-08-20] MEDS: SERTRALINE HCL 50 MG TABLET PO SCH (09:27)
--- NOTE | 2018-08-20 09:56 | Nephrology Progress Note ---
Date of Service August 20, 2018 Assessment & Plan (1) Acute renal insufficiency: ROBBY related to cystitis and dehydration in the setting of SHAHEEN inhibitor and loop diuretic therapy -- Patient is nonoliguric. Renal US is negative for obstruction. Patient was dehydrated at the time of presentation. She is now awake and alert, tolerating a regular diet -- Will heplock IV -- Continue to hold Lisinopril and Furosemide -- Baseline creatinine is unknown. Awaiting medical records from PCP and OSH -- Monitor serial PRP (2) UTI (urinary tract infection): -- Urine culture has grown E. Coli and Lactobacillus. Patient is now on oral Cipro. Dose appears to be appropriate for renal function (3) Hyperkalemia: -- Resolved following one dose SPS (4) DM2 (diabetes mellitus, type 2): (5) Status post hip surgery: (6) Cardiomyopathy: Subjective Ms. Shelby was seen & examined in her hospital room this morning. She was alert and oriented to self and place. She was sitting up in bed eating breakfast. Review of Systems Constitutional: no fever Respiratory: no dyspnea Cardiovascular: no chest pain Physical Exam Eyes: PERRL, conjunctivae normal, anicteric sclerae Neck: trachea midline, no thyromegaly Respiratory: normal respiratory effort, lungs clear to auscultation Cardiovascular: RRR, no murmur, no edema Gastrointestinal (Abdomen): normal bowel sounds, soft, nontender, no hepatosplenomegaly Results & Data Vital Signs (Past 12 Hours) Vital Signs Temp Pulse Pulse Resp BP Pulse Ox 08/20/18 08:00 70 08/20/18 06:41 36.5 C 73 22 131/94 97 08/20/18 03:45 36.4 C L 86 26 H 132/71 94 08/19/18 23:23 36.5 C 68 20 155/78 H 98 Laboratory Results Laboratory Tests 08/20/18 08/20/18 07:57 07:57 WBC 10.46 Hgb 9.5 L Hct 29.2 L Plt Count 197 Sodium 144 Potassium 4.4 Chloride 114 H Carbon Dioxide 22 BUN 47 H Creatinine 1.15 D Glucose 79 (1) UTI (urinary tract infection) Hematuria presence: without hematuria Urinary tract infection type: site unspecified Qualified Code(s): N39.0 - Urinary tract infection, site not specified
[2018-08-20] MEDS ORDERED: FUROSEMIDE 40 MG in SYRINGE 0 ML IV ONE (12:00)
--- NOTE | 2018-08-20 16:16 | Hospitalist Progress Note ---
Date of Service August 20, 2018 Assessment & Plan (1) Acute renal insufficiency: Resolved. Zelaya catheter has been placed. Renal ultrasound shows chronic renal disease Nephrology consultation feels is secondary to dehydration diuretics and SHAHEEN inhibitor therapy Echocardiogram is normal patient however has some mild volume overload clinically on 08/20 1 dose of IV Lasix was administered Initial x-ray suggesting mild congestive heart failure may be more interstitial lung disease this may be HFpEF (2) Hyperkalemia: Telemetry. Administered Kayexalate x1 dose. Discontinued lisinopril, potassium improved (3) UTI (urinary tract infection): Currently on intravenous Rocephin.cultures suggest a pcn resistent E coli poa, can consider de escalation to cipro po (4) CHF (congestive heart failure): chronic HFpEF also considering interstitial lung disease seems to have handled rehydration without issue (5) DM2 (diabetes mellitus, type 2): ADA diet. Sliding scale coverage. Glipizide will resume and will stop CF on ssi Subjective Patient is pleasantly confused she still is having some respiratory distress she otherwise has been with improved renal function we are awaiting placement in skilled rehab facility Review of Systems Review of Systems: ROS: well nourished well developed. No double vision blurry vision No problems with speech or swallowing No palpitations, chest pain or pressure Patient seems short of breath using accessory muscle respiration No abdominal pain nausea vomiting diarrhea changes in appetite or weight No burning urine urine frequency or changes in color No focal joint pain or muscle pain No skin rashes or oral lesions No unusual bruising or bleeding No focused back pain or numbness or loss of strength Has baseline confusion Physical Exam Physical Exam: The patient appeared well nourished and normally developed. Vital signs as documented. Head exam is unremarkable. normocephalic, atraumatic Neck is mild jugular venous distension, thyromegaly, or lymphademopathy Lungs are bibasilar rales Cardiac exam reveals Rhythm is regular. Systolic ejection murmur Abdominal exam reveals normal bowel sounds, no masses, no organomegaly Extremities are mildly edematous and both pedal pulses are present Neurologic exam is A&Ox3, no focal deficits, strength is equal bilateral Psychologically seems neither anxious or depressed Skin is warm Dry without bruises or lesions Results & Data Vital Signs (Past 12 Hours) Vital Signs Temp Pulse Pulse Resp BP BP Pulse Ox 08/20/18 15:21 36.7 C 59 L 16 120/76 94 08/20/18 11:40 36.4 C L 66 24 135/70 100 08/20/18 09:21 94 08/20/18 08:00 70 08/20/18 06:41 36.5 C 73 22 131/94 97 (1) UTI (urinary tract infection) Hematuria presence: without hematuria Urinary tract infection type: site unspecified Qualified Code(s): N39.0 - Urinary tract infection, site not specified
[2018-08-20] MEDS: OLANZapine 5 MG TABLET PO SCH (21:01)
[2018-08-20] MEDS: ATORVASTATIN 10 MG TAB PO SCH (21:01)
[2018-08-21 05:41] LABS: Hematocrit (blood only) 30.5 % (37-47); Hemoglobin 9.9 g/dL (12.0-16.0); Mean Corpuscular Hgb Conc 32.5 g/dL (32-36); Mean Corpuscular Volume 97.4 fL (80-100); Mean Platelet Volume 10.1 fL (7.4-10.4); Platelet Count 222 K/uL (130-400); RDW Coefficient of Variation 18.7 % (11.5-14.5); RDW Standard Deviation 64.7 fL (36.4-46.3); Red Blood Count 3.13 M/uL (4.2-5.4); White Blood Count 12.53 K/uL (4.8-10.8)
[2018-08-21 06:11] LABS: BUN Creatinine Ratio 36.7 (10-20); Calcium 8.9 mg/dl (8.5-10.1); Creatinine Clr Calc Pharmacy 28.4 ml/min; Est GFR (African American) 50.4; Est GFR (Non-African American) 43.5; Potassium 4.5 mmol/L (3.5-5.1)
[2018-08-21] MEDS ORDERED: FUROSEMIDE 40 MG in SYRINGE 0 ML IV ONE (07:45)
--- NOTE | 2018-08-21 08:00 | XRay Report ---
XR chest 1V portable CLINICAL HISTORY: 88 years-old Female presenting with hf. TECHNIQUE: Portable upright AP view of the chest was obtained. COMPARISON: 08/19/2018. FINDINGS: Left subclavian implanted cardiac defibrillator with single lead to the right ventricular apex. Media n sternotomy wires and mediastinal surgical clips unchanged. Numerous overlying external leads degrad e evaluation. Atherosclerosis and tortuosity of the thoracic aorta. Cardiac silhouette moderately enlarged. Evidenc e of coronary artery stents. Pulmonary vascular prominence and bronchial wall cuffing. Added density of the lung bases worsened from prior exam. Increasing bilateral pleural effusions. No large pneumoth orax. Exaggerated thoracic kyphosis with suspected underlying osteopenia. Cholecystectomy clips may b e present. IMPRESSION: 1. Cardiomegaly with worsening volume overload, congestive change, and suspected developing pulmonar y edema. 2. Increasing bilateral pleural effusions. Electronically signed by: Sean Varghese M.D. 08/21/2018 7:59 AM
[2018-08-21] MEDS: INSULIN ASPART 100 UNITS/ML 3 ML PEN SC SCH ×4 (08:08→21:23)
[2018-08-21] MEDS: DOCUSATE SODIUM 100 MG CAP PO SCH ×3 (08:12→21:28)
[2018-08-21] MEDS: LIDOCAINE 5% 1 PATCH TD SCH (08:12)
[2018-08-21] MEDS: CARVEDILOL 12.5 MG TAB PO SCH ×2 (08:12→16:36)
[2018-08-21] MEDS: glipiZIDE ER 2.5 MG TABCR PO SCH (08:12)
[2018-08-21] MEDS: CHOLECALCIFEROL 1,000 UNITS TAB PO SCH (08:12)
[2018-08-21] MEDS: FERROUS SULFATE 325 MG TAB PO SCH (08:12)
[2018-08-21] MEDS: SERTRALINE HCL 50 MG TABLET PO SCH (08:13)
[2018-08-21] MEDS: ALLOPURINOL 300 MG TAB PO SCH (08:13)
[2018-08-21] MEDS: ASPIRIN 81 MG ECTAB PO SCH (08:13)
[2018-08-21] MEDS: PANTOprazole 40 MG TAB PO SCH ×2 (08:13→21:21)
[2018-08-21] MEDS: CIPROFLOXACIN 250 MG TAB PO SCH (08:13)
[2018-08-21] MEDS: ENOXAPARIN INJ 30 MG/0.3 ML SYR SQ SCH (08:14)
--- NOTE | 2018-08-21 10:06 | Nephrology Progress Note ---
Date of Service August 21, 2018 Assessment & Plan (1) Acute renal insufficiency: ROBBY related to cystitis and dehydration in the setting of SHAHEEN inhibitor and loop diuretic therapy -- Patient is nonoliguric. Renal US is negative for obstruction. Urine sediment was c/w infection -- Baseline creatinine is unknown. Medical records have been ordered from OSH and PCP -- Suspect some element of CKD. Patient does have mild renal asymmetry on US -- Creatinine has stabilized at ~ 1.1. -- BP, volume status & electrolyte balance are acceptable at this time. Continue to hold Lisinopril and Furosemide. -- Recommend removing weston catheter when patient is able to use bedside commode -- Will sign off. Please call if further Nephrology assistance is needed (2) UTI (urinary tract infection): -- Urine culture has grown E. Coli and Lactobacillus. Patient is now on oral Cipro. Dose appears to be appropriate for renal function (3) DM2 (diabetes mellitus, type 2): (4) Status post hip surgery: (5) Cardiomyopathy: Subjective Ms. Shelby was seen & examined in her hospital room this morning. She was sitting up in a chair and was oriented to self, place and month. She voiced no medical concerns. Review of Systems Respiratory: no dyspnea Cardiovascular: no chest pain Gastrointestinal: no abdominal pain, no vomiting and no diarrhea/loose stools Physical Exam Eyes: PERRL, conjunctivae normal, anicteric sclerae Neck: trachea midline, no thyromegaly Respiratory: normal respiratory effort, lungs clear to auscultation Cardiovascular: RRR, no murmur, no edema Gastrointestinal (Abdomen): normal bowel sounds, soft, nontender, no hepatosplenomegaly Results & Data Vital Signs (Past 12 Hours) Vital Signs Temp Pulse Resp BP BP Pulse Ox 08/21/18 07:38 36.5 C 95 H 19 135/90 95 08/21/18 03:42 37.1 C 93 H 25 H 167/86 H 92 08/20/18 23:05 36.4 C L 68 16 161/66 H 92 Laboratory Results Laboratory Tests 08/21/18 08/21/18 05:12 05:12 WBC 12.53 H Hgb 9.9 L Hct 30.5 L Plt Count 222 Sodium 140 Potassium 4.5 Chloride 111 H Carbon Dioxide 23 BUN 41 H Creatinine 1.12 Glucose 91 (1) UTI (urinary tract infection) Hematuria presence: without hematuria Urinary tract infection type: site unspecified Qualified Code(s): N39.0 - Urinary tract infection, site not specified
[2018-08-21] MEDS ORDERED: PIPERACILL/TAZOBAC CONSULT ACTIVE PRN (10:12)
[2018-08-21] MEDS ORDERED: ALBUT/IPRATROP 3MG/0.5MG NEB 3 ML VIAL NEB PRN (10:35)
[2018-08-21] MEDS ORDERED: PIPERACILLIN/TAZOBACTAM 3.375 GM in DEXTROSE 5% 100 ML IV ONE (10:45)
[2018-08-21] MEDS: ALBUT/IPRATROP 3MG/0.5MG NEB 3 ML VIAL NEB SCH ×3 (11:10→19:34)
--- NOTE | 2018-08-21 15:34 | Hospitalist Progress Note ---
Date of Service August 21, 2018 Assessment & Plan (1) Acute renal insufficiency: Renal ultrasound shows chronic renal disease Nephrology consultation feels is secondary to dehydration diuretics and SHAHEEN inhibitor therapy Echocardiogram is normal patient however has some mild volume overload clinically on 08/20 and will be on daily Lasix dosing. We will check a BMP. Initial x-ray suggesting mild congestive heart failure may be more interstitial lung disease this may be HFpEF (2) Hyperkalemia: Telemetry. Administered Kayexalate x1 dose. Discontinued lisinopril, potassium improved and giving more Lasix and watch for recurrence of her renal failure (3) UTI (urinary tract infection): Currently on intravenous Rocephin.cultures suggest a pcn resistent E coli poa, will be placed on Zosyn therapy to cover anaerobic's (4) CHF (congestive heart failure): chronic HFpEF also considering interstitial lung disease The patient has significant increased work of breathing and some oxygen requirements. Her chest x-ray looks significantly altered with no change in presentation. If she does not improve with further diuresis CT scan may be undertaken (5) DM2 (diabetes mellitus, type 2): ADA diet. Sliding scale coverage. Glipizide will resume and will stop CF on ssi (6) Aspiration pneumonia: Concern for right-sided changes more than left-sided changes dose of therapy was started for aspiration pneumonia aspiration precautions and speech therapy undertaken. A CT scan of her chest to be also undertaken without contrast to evaluate possibilities of other surreptitious causes of chest x-ray findings Subjective Patient is pleasantly confused she is sedated she is requiring increased oxygen demands. I called her daughter Livia and updated her. She appears to have more respiratory distress this is with some concern for possible aspiration her chest x-ray does not look significantly different from admission despite having a preserved ejection fraction. Review of Systems Review of Systems: ROS: This is chronic by her confusion Chronically ill confused No double vision blurry vision No problems with speech or swallowing No palpitations, chest pain or pressure No some wheezing and rhonchi heard bilaterally No abdominal pain nausea vomiting diarrhea changes in appetite or weight No burning urine urine frequency or changes in color No focal joint pain or muscle pain No skin rashes or oral lesions No unusual bruising or bleeding No focused back pain or numbness or loss of strength Patient has significant confusion Physical Exam Physical Exam: The patient appeared in mild to moderate distress with increased work of breathing Vital signs as documented. Head exam is unremarkable. normocephalic, atraumatic Neck is without thyromegaly, or lymphademopathy Lungs are rhonchi bilaterally right worse than left with a few wheezes heard and expiratory phase Cardiac exam reveals Rhythm is regular. First and second heart sounds normal. Abdominal exam reveals normal bowel sounds, no masses, no organomegaly Extremities are nonedematous and both pedal pulses are present Neurologic exam is A&Ox2, no focal deficits, strength is equal bilateral Psychologically seems confused Skin is warm Dry without bruises or lesions Results & Data Vital Signs (Past 12 Hours) Vital Signs Temp Pulse Pulse Resp BP BP Pulse Ox 08/21/18 15:25 68 18 96 08/21/18 11:13 71 18 100 08/21/18 10:47 37.0 C 75 16 146/74 H 94 08/21/18 10:20 65 08/21/18 07:38 36.5 C 95 H 19 135/90 95 08/21/18 03:42 37.1 C 93 H 25 H 167/86 H 92 (1) UTI (urinary tract infection) Hematuria presence: without hematuria Urinary tract infection type: site unspecified Qualified Code(s): N39.0 - Urinary tract infection, site not specified
[2018-08-21] MEDS: PIPERACILLIN/TAZOBACTAM 3.375 GM in DEXTROSE 5% 100 ML IV SCH (16:33)
--- NOTE | 2018-08-21 16:33 | CT Scan Report ---
CT chest wo con CLINICAL HISTORY: Progressive shortness of breath COMPARISON STUDY: Chest x-ray dated 08/21/2018 CT DOSE: 533.13 mGy.cm TECHNIQUE: CT of the thorax was performed from the thoracic inlet to the lung bases. Images are revi ewed in the axial, sagittal, and coronal planes. IV contrast was not administered for this examinatio n. A dose lowering technique was utilized adhering to the principles of ALARA. FINDINGS: Thyroid: Imaged portions of the thyroid gland are normal in appearance. Thoracic aorta: Atheromatous changes are present within the thoracic aorta. There is no aneurysmal di latation. Heart: The heart is enlarged. There is no pericardial effusion. There are extensive coronary artery c alcifications. There is evidence for prior coronary artery stenting. There is a left-sided pacer/defi brillator. There are postsurgical changes of a midline sternotomy. Lungs and pleural spaces: There are small bilateral pleural effusions. There are dependent basilar op acities, likely representing compressive atelectatic change. There is mild interstitial thickening/ed jaciel suggesting congestive failure/fluid overload. No endobronchial lesions are visualized. Mediastinum: Mediastinal lymph nodes are the upper limits of normal in size area Gabriela: There is no nodes of pathologic hilar adenopathy given the limitations of a noncontrast study. Axilla: There is no evidence of pathologic axillary lymphadenopathy Upper abdomen: Partially visualized upper abdominal viscera is within normal limits. Skeletal structures: There are severe compression fractures at the T7 and T9 levels IMPRESSION: 1. Cardiomegaly, and coronary artery calcifications 2. Small bilateral pleural effusions, and basilar airspace opacities, likely representing compressive atelectasis 3. Evidence for mild congestive failure/fluid overload 4. Severe thoracic compression deformities at the T7 and T9 levels. Electronically signed by: Henrik Garcia M.D. 08/21/2018 4:32 PM
[2018-08-21] MEDS ORDERED: FUROSEMIDE 40 MG in SYRINGE 0 ML IV SCH (17:00)
[2018-08-21] MEDS: ACETAMINOPHEN 325 MG TAB PO PRN (20:02)
[2018-08-21] MEDS: ATORVASTATIN 10 MG TAB PO SCH (21:20)
[2018-08-21] MEDS: OLANZapine 5 MG TABLET PO SCH (21:21)
[2018-08-22] MEDS: PIPERACILLIN/TAZOBACTAM 3.375 GM in DEXTROSE 5% 100 ML IV SCH ×3 (00:06→20:31)
[2018-08-22 06:48] LABS: BUN Creatinine Ratio 27.2 (10-20); Calcium 8.4 mg/dl (8.5-10.1); Creatinine Clr Calc Pharmacy 20.9 ml/min; Est GFR (African American) 34.9; Est GFR (Non-African American) 30.1; Potassium 4.2 mmol/L (3.5-5.1)
[2018-08-22] MEDS: ALBUT/IPRATROP 3MG/0.5MG NEB 3 ML VIAL NEB SCH ×3 (07:19→15:28)
[2018-08-22] MEDS: INSULIN ASPART 100 UNITS/ML 3 ML PEN SC SCH ×4 (08:18→20:31)
[2018-08-22] MEDS: DOCUSATE SODIUM 100 MG CAP PO SCH ×3 (08:19→23:01)
[2018-08-22] MEDS: CARVEDILOL 12.5 MG TAB PO SCH ×2 (08:19→17:59)
[2018-08-22] MEDS: ASPIRIN 81 MG ECTAB PO SCH (08:20)
[2018-08-22] MEDS: FERROUS SULFATE 325 MG TAB PO SCH (08:20)
[2018-08-22] MEDS: ENOXAPARIN INJ 30 MG/0.3 ML SYR SQ SCH (08:21)
[2018-08-22] MEDS: LIDOCAINE 5% 1 PATCH TD SCH (08:21)
[2018-08-22] MEDS: PANTOprazole 40 MG TAB PO SCH ×2 (08:21→20:32)
[2018-08-22] MEDS: CHOLECALCIFEROL 1,000 UNITS TAB PO SCH (08:22)
[2018-08-22] MEDS: ALLOPURINOL 300 MG TAB PO SCH (08:22)
[2018-08-22] MEDS: SERTRALINE HCL 50 MG TABLET PO SCH (08:22)
[2018-08-22] MEDS: glipiZIDE ER 2.5 MG TABCR PO SCH (08:39)
[2018-08-22] MEDS: FUROSEMIDE 20 MG TAB PO SCH (08:39)
[2018-08-22] MEDS: ACETAMINOPHEN 325 MG TAB PO PRN (09:14)
--- NOTE | 2018-08-22 16:42 | Hospitalist Progress Note ---
Date of Service August 22, 2018 Assessment & Plan (1) Acute renal insufficiency: Renal ultrasound shows chronic renal disease Nephrology consultation feels is secondary to dehydration diuretics and SHAHEEN inhibitor therapy Echocardiogram is normal patient however has some mild volume overload clinically on 08/20 and has improved with lasix dosing althought having Cr creep upward slightly Initial x-ray suggesting mild congestive heart failure may be more interstitial lung disease this may be HFpEF (2) Hyperkalemia: Resolved. Administered Kayexalate x1 dose. Discontinued lisinopril, potassium improved and giving more Lasix and watch for decreased K+ (3) UTI (urinary tract infection): urine cultures suggest a pcn resistent E coli poa, will be placed on Zosyn therapy to cover anaerobic's in case was some aspiration , however although cxr has more chnages in the right side, now clinically doubt aspiration pneumonia and feel changes more consistent with pulmonary edema (4) CHF (congestive heart failure): chronic HFpEF also considering interstitial lung disease The patient has significant hf changes seen on CT and she has clinically improved after lasix therapy, the quick turn around seems to be consistent wtih volume overload from fluid resuscitation as a treatment for her acute kidney injury (5) DM2 (diabetes mellitus, type 2): ADA diet. Sliding scale coverage. Glipizide will stop as she did have some lows, will have return to CF on ssi (6) Aspiration pneumonia: this is ruled out, speech has cleared her to eat Subjective Patient is pleasantly confused she is much less short of breath and she was yest erday she is no coughing pursuing through physical therapy to return to [facility] per the family's wishes. Her dementia raises some concern about her returning to independent living situation Review of Systems Review of Systems: ROS: Patient is pleasantly demented No double vision blurry vision No problems with speech or swallowing No palpitations, chest pain or pressure No Wheezing does have some slight dyspnea with exertion No abdominal pain nausea vomiting diarrhea changes in appetite or weight No burning urine urine frequency or changes in color No focal joint pain or muscle pain No skin rashes or oral lesions No unusual bruising or bleeding No focused back pain or numbness or loss of strength Persistent changes in memory and confusion Physical Exam Physical Exam: The patient appeared well nourished and normally developed. Vital signs as documented. Head exam is unremarkable. normocephalic, atraumatic Neck is without jugular venous distension, thyromegaly, or lymphademopathy Lungs are improved, still with decreased breathsounds at the bases Cardiac exam reveals Rhythm is regular. slight rosalinda Abdominal exam reveals normal bowel sounds, no masses, no organomegaly Extremities are nonedematous and both pedal pulses are present Neurologic exam is A&Ox2, no focal deficits, strength is equal bilateral Psychologically seems neither anxious or depressed Skin is warm / Dry Results & Data Vital Signs (Past 12 Hours) Vital Signs Temp Pulse Resp BP Pulse Ox 08/22/18 15:28 69 16 97 08/22/18 15:24 36.8 C 70 20 132/93 97 08/22/18 11:10 72 16 98 08/22/18 11:00 91 08/22/18 10:58 37.1 C 71 19 115/72 84 L 08/22/18 07:19 80 14 100 (1) UTI (urinary tract infection) Hematuria presence: without hematuria Urinary tract infection type: site unspecified Qualified Code(s): N39.0 - Urinary tract infection, site not specified
[2018-08-22] MEDS: ATORVASTATIN 10 MG TAB PO SCH (20:31)
[2018-08-22] MEDS: OLANZapine 5 MG TABLET PO SCH (20:32)
[2018-08-23] MEDS: ACETAMINOPHEN 325 MG TAB PO PRN (00:14)
[2018-08-23] MEDS ORDERED: CARBOHYDRATES FOR HYPOGLYCEMIA PO PRN (02:15)
[2018-08-23] MEDS ORDERED: DEXTROSE 50% 50 ML SYRINGE IV PRN (02:15)
[2018-08-23] MEDS ORDERED: GLUCOSE 10 TABS/TUBE PO PRN (02:15)
[2018-08-23] MEDS ORDERED: GLUCAGON FOR INJ 1 MG VIAL SQ PRN (02:15)
[2018-08-23] MEDS ORDERED: GLUCOSE 40% GEL 15 GM TUBE PO PRN (02:15)
[2018-08-23 06:28] LABS: Hematocrit (blood only) 25.9 % (37-47); Hemoglobin 8.4 g/dL (12.0-16.0); Mean Corpuscular Hgb Conc 32.4 g/dL (32-36); Mean Corpuscular Volume 97.7 fL (80-100); Mean Platelet Volume 9.6 fL (7.4-10.4); Platelet Count 160 K/uL (130-400); RDW Coefficient of Variation 18.8 % (11.5-14.5); RDW Standard Deviation 66.5 fL (36.4-46.3); Red Blood Count 2.65 M/uL (4.2-5.4); White Blood Count 11.42 K/uL (4.8-10.8)
[2018-08-23 06:52] LABS: Calcium 7.9 mg/dl (8.5-10.1); Creatinine Clr Calc Pharmacy 21.6 ml/min; Est GFR (African American) 36.3; Est GFR (Non-African American) 31.3; Potassium 3.7 mmol/L (3.5-5.1)
[2018-08-23] MEDS: DOCUSATE SODIUM 100 MG CAP PO SCH (08:09)
[2018-08-23] MEDS: PIPERACILLIN/TAZOBACTAM 3.375 GM in DEXTROSE 5% 100 ML IV SCH (08:24)
[2018-08-23] MEDS: CARVEDILOL 12.5 MG TAB PO SCH (08:25)
[2018-08-23] MEDS: ASPIRIN 81 MG ECTAB PO SCH (08:26)
[2018-08-23] MEDS: FUROSEMIDE 20 MG TAB PO SCH (08:27)
[2018-08-23] MEDS: CHOLECALCIFEROL 1,000 UNITS TAB PO SCH (08:27)
[2018-08-23] MEDS: PANTOprazole 40 MG TAB PO SCH (08:27)
[2018-08-23] MEDS: FERROUS SULFATE 325 MG TAB PO SCH (08:27)
[2018-08-23] MEDS: ALLOPURINOL 300 MG TAB PO SCH (08:28)
[2018-08-23] MEDS: SERTRALINE HCL 50 MG TABLET PO SCH (08:28)
[2018-08-23] MEDS: INSULIN ASPART 100 UNITS/ML 3 ML PEN SC SCH ×2 (09:15→12:39)
[2018-08-23] MEDS: LIDOCAINE 5% 1 PATCH TD SCH (09:16)
[2018-08-23] MEDS: ENOXAPARIN INJ 30 MG/0.3 ML SYR SQ SCH (09:19)
[2018-08-23 14:55] LABS: Cdiff Antigen Positive
[2018-08-23 14:56] LABS: Cdiff Toxin A+B Positive Cdiff Toxin (Negative)
--- NOTE | 2018-08-23 15:04 | Discharge Summary ---
Date of Service August 23, 2018 Admission HPI Per Admitting Provider 88-year-old white female with a recent left hip fracture repair in [facility]. I believe she is undergoing rehabilitation at [facility]. She had abnormal laboratory results done and was sent to the ED for evaluation. Her creatinine is 2.6 and I am not sure what her baseline creatinine is. Potassium is 5.6. BUN is 84. Physical examination however is consistent with mild CHF and chest x-ray appears to confirm mild CHF. BNP is also slightly elevated. Although she has a dry mouth this may be from medication side effect rather than from overt volume depletion. Nevertheless, Lasix will be held and judicious IV fluids administered. Renal ultrasound is pending along with urine sodium and urine creatinine for fractional excretion calculation. Serum osmolarity is pending. Nephrology consultation has been requested. Kayexalate will be administered x1 dose. Echocardiography has been requested. Lasix, lisinopril and glipizide are placed on hold. Serial lab studies have been ordered. She has requested DNR /DNI status. Principal Diagnosis acute renal failure HFpef UTI poa C Diff Discharge Exam Eyes no conjunctival abnormality and no scleral abnormality Neck normal visual inspection and trachea midline Respiratory normal respiratory effort; no respiratory distress Auscultation: lungs clear to auscultation bilaterally Cardiovascular RRR, no murmur, no edema Gastrointestinal (Abdomen) normal bowel sounds, soft, nontender, no hepatosplenomegaly Discharge Data Allergies Allergy/AdvReac Type Severity Reaction Status Date / Time No Known Allergies Allergy Unverified 08/17/18 10:54 Consultations 08/17/18 12:05 ED Decision to Admit Stat 08/17/18 14:27 Consult Nephrology Stat 08/17/18 21:45 Consult Nephrology Routine 08/18/18 16:26 HIM [Consult Health Information Management] Routine Ordered Studies 08/17/18 14:27 US renal/blad retro comp Stat 08/21/18 15:34 CT chest wo con Routine Hospital Course (1) Acute renal insufficiency: Renal ultrasound shows chronic renal disease Nephrology consultation feels is secondary to dehydration diuretics and SHAHEEN inhibitor therapy Echocardiogram is normal patient however has some mild volume overload clinically on 08/20 and has improved with lasix dosing new Cr seems to be around 1.4 Initial x-ray suggesting mild congestive heart failure may be more interstitial lung disease this may be HFpEF (2) Hyperkalemia: Resolved. Administered Kayexalate x1 dose. Discontinued lisinopril, potassium improved and giving more Lasix and watch for decreased K+ (3) UTI (urinary tract infection): urine cultures suggest a pcn resistent E coli poa, will continue cipro po (4) CHF (congestive heart failure): chronic HFpEF also considering interstitial lung disease The patient has significant hf changes seen on CT and she has clinically improved after lasix therapy, the quick turn around seems to be consistent with volume overload from fluid resuscitation as a treatment for her acute kidney injury, resolved with lasix (5) DM2 (diabetes mellitus, type 2): ADA diet. Sliding scale coverage. Glipizide will stop as she did have some lows, will have return to CF on ssi (6) Aspiration pneumonia: this is ruled out, speech has cleared her to eat (7) C. difficile diarrhea: pt will be started on vancomycin po Total Time Total Time Spent Total Time Spent (In Minutes): greater than 30 minutes were required to prepare discharge Discharge Plan Discharge Items Patient Disposition: Transfer Inpatient Rehab Fac Reason For Visit: ACUTE KIDNEY INJURY, HYPERKALEMIA Discharge Diagnosis: acute preserved ejection fraction heart failure acute kidney injury with background of CKD 3, acute issue resolved Discharge Goals: Decrease discomfort, Diagnostic testing and Improve disease control Activity: Resume your previous activity Non-emergency contact: Primary Care Provider Call non-emergency contact if: you have any medication questions Follow-up/Referrals: PCP,NO [Primary Care Provider] - Diet: Carb Consistent or DM2 and Low Sodium (2gm) Addtl Provider Instructions: please monitor body weight and renal function, do not restart shaheen inhibitor Prescriptions: New furosemide 20 mg Tablet 20 mg PO QAM Qty: 30 RF: 0 ciprofloxacin HCl 250 mg tablet 250 mg PO BID Qty: 6 RF: 0 Continued sennosides [senna] 8.6 mg Tablet 8.6 mg PO QAM PRN (Reason: Constipation) RF: 0 carvedilol 12.5 mg Tablet 12.5 mg PO BIDM RF: 0 atorvastatin 10 mg Tablet 10 mg PO HS RF: 0 olanzapine 5 mg Tablet 7.5 mg PO HS RF: 0 aspirin 81 mg Tablet,Delayed Release (Dr/Ec) 81 mg PO DAILY RF: 0 acetaminophen [Tylenol Extra Strength] 500 mg Tablet 500 mg PO Q4H PRN (Reason: pain/fever) RF: 0 Novolog U-100 Insulin aspart 100 unit/mL Solution 1 sliding scale dose SUBCUT ACHS RF: 0 bisacodyl 10 mg Suppository 10 mg VA DAILY PRN (Reason: Constipation) RF: 0 pantoprazole [Protonix] 40 mg Tablet,Delayed Release (Dr/Ec) 40 mg PO BID RF: 0 ferrous sulfate 325 mg (65 mg iron) Tablet 325 mg PO DAILY RF: 0 lidocaine [Lidoderm] 5 % Adhesive Patch,Medicated 2 patch TOPICAL QAM RF: 0 Fleet Enema 19-7 gram/118 mL Enema 133 ml VA DAILY PRN (Reason: Constipation) RF: 0 docusate sodium [Colace] 100 mg Capsule 100 mg PO BID RF: 0 sertraline 25 mg Tablet 25 mg PO DAILY RF: 0 enoxaparin [Lovenox] 30 mg/0.3 mL Syringe 30 mg SUBCUT DAILY RF: 0 magnesium hydroxide 2,400 mg/10 mL Suspension 30 ml PO DAILY PRN (Reason: Constipation) RF: 0 cholecalciferol (vitamin D3) [Vitamin D3] 2,000 unit Capsule 2,000 unit PO DAILY RF: 0 tramadol 50 mg Tablet 50 mg PO Q4H PRN (Reason: Pain) Qty: 30 RF: 0 Changed allopurinol 300 mg Tablet 100 mg PO DAILY Qty: 0 RF: 0 Discontinued furosemide [Lasix] 40 mg Tablet 40 mg PO DAILY RF: 0 glipizide 2.5 mg Tablet Extended Release 24hr 2.5 mg PO DAILY RF: 0 lisinopril 10 mg Tablet 10 mg PO DAILY RF: 0 Stand-Alone Forms: [facility] Discharge Orders: Discharge Order (Routine); Ordered 08/23/18 Ordered By: Chris Crowder Skilled Items Patient informed of condition?: Yes DNR: Yes Discharge Level of Care: Acute rehab Communicable Disease: No Discharge Prognosis: Stable Admission Data Admit Date/Time: 08/17/18 12:58 Attending Provider: Chris Crowder Admit Provider: Rony Thayer Primary Care Provider: PCP,NO Other Providers: Boone Pressley ; Rony Thayer ; Taras Miller ; Iván Zavaleta ; Kayla Verde ; Lisa Rome Service: Medical Other Interventions: Discharge Summary Assessment (RN) Last Done: 08/23/18 11:45 DC Date/Time DO NOT enter until pt leaves facility: 08/23/18 12:45
== END 2018-08-23 12:45 | DRG 683 ==
LOC: ED 10:03 → SUATTDRO 12:58 → 2E 12:58 → 4E 08-22 15:40

== ENCOUNTER 2018-09-10 08:52 | Inpatient (IN) ==
[2018-09-10] MEDS ORDERED: ALBUT/IPRATROP 3MG/0.5MG NEB 3 ML VIAL INH STA (09:13)
--- NOTE | 2018-09-10 09:50 | XRay Report ---
XR chest 1V portable CLINICAL HISTORY: 88 years-old Female presenting with Dyspnea. TECHNIQUE: Portable semiupright AP view of the chest was obtained. COMPARISON: 08/21/2018. FINDINGS: The patient is KAZAKH rotated. Left subclavian implanted cardiac defibrillator with lead to the right ve ntricular apex. Median sternotomy wires and bypass graft rings noted. The subcutaneous component of t he ICD projects over the left lower lung degrading evaluation. Atherosclerosis of the aortic arch. Cardiac silhouette moderately enlarged. Pulmonary vascular promin ence similar to prior exam. Slight improved aeration of the lung bases. Stable slight decrease in int erstitial prominence. Mild central added density remains. Small bilateral pleural effusions may be sl ightly decreased from prior. No pneumothorax. Osteopenia suspected. Cholecystectomy clips noted. IMPRESSION: 1. Cardiomegaly with stable to slight decrease volume overload and congestive change. Mild pulmonary edema remains. 2. Stable slight decrease in bilateral pleural effusions with slight improved aeration of the lung b ases. Electronically signed by: Sean Varghese M.D. 09/10/2018 9:49 AM
[2018-09-10 09:55] LABS: Basophils # (auto) 0.03 K/uL (0-0.2); Basophils % (auto) 0.3 %; Eosinophils # (auto) 0.12 K/uL (0-0.5); Eosinophils % (auto) 1.2 %; Hematocrit (blood only) 27.6 % (37-47); Immature Granulocytes # (auto) 0.07 K/uL (0.00-0.02); Immature Granulocytes % (auto) 0.7 %; Lymphocytes # (auto) 1.36 K/uL (1.2-3.4); Lymphocytes % (auto) 13.6 %; Mean Corpuscular Hgb Conc 32.6 g/dL (32-36); Mean Corpuscular Volume 98.9 fL (80-100); Mean Platelet Volume 9.9 fL (7.4-10.4); Monocytes # (auto) 1.19 K/uL (0.11-0.59); Monocytes % (auto) 11.9 %; Neutrophils % (auto) 72.3 %; Platelet Count 254 K/uL (130-400); RDW Coefficient of Variation 19.9 % (11.5-14.5); RDW Standard Deviation 70.8 fL (36.4-46.3); Red Blood Count 2.79 M/uL (4.2-5.4); White Blood Count 9.97 K/uL (4.8-10.8)
[2018-09-10 10:06] LABS: INR 1.1 (0.9-1.1); Partial Thromboplastin Ratio 1.2; Partial Thromboplastin Time 31.6 Seconds (21.0-31.0); Prothrombin Time 11.5 Seconds (9.0-12.0)
[2018-09-10 10:12] LABS: Albumin Level 2.8 gm/dl (3.4-5.0); BUN Creatinine Ratio 35.1 (10-20); Calcium 8.7 mg/dl (8.5-10.1); Creatinine Clr Calc Pharmacy 28.2 ml/min; Est GFR (African American) 42.1; Est GFR (Non-African American) 36.3; Potassium 4.6 mmol/L (3.5-5.1)
[2018-09-10 10:16] LABS: Albumin Globulin Ratio 0.7 (0.9-2); Bilirubin,Total 0.5 mg/dl (0.2-1); Globulin 4.1 gm/dl (2.5-4.0); Total Protein 6.9 gm/dl (6.4-8.2); Troponin I 0.019 ng/ml (0-0.045)
[2018-09-10 10:41] LABS: Appearance Urine Clear (Clear); Bilirubin Urine Negative (Negative); Blood Urine Negative (Negative); Color Urine Yellow; Glucose Urine UA Negative (Negative); Ketones Urine Negative (Negative); Leukocyte Esterase Urine Negative (Negative); Nitrite Urine Negative (Negative); Protein Urine Negative (Negative); Urobilinogen Urine Negative (Negative)
[2018-09-10 11:07] LABS: Influenza A virus by PCR Neg for Influ A (Neg); Influenza B virus by PCR Neg for Influ B (Neg)
[2018-09-10] MEDS ORDERED: FUROSEMIDE 40 MG in SYRINGE 0 ML IV ONE (12:15)
[2018-09-10] MEDS ORDERED: FUROSEMIDE 40 MG/4 ML VIAL IV ONE (12:43)
--- NOTE | 2018-09-10 13:45 | CT Scan Report ---
HEAD CT NONCONTRAST CT DOSE: 614.27 mGy.cm HISTORY: Altered mental status. TECHNIQUE: Multiaxial CT images of the head were performed without the use of intravenous contrast. A utomated exposure control was utilized for this study. A dose lowering technique was utilized adheri ng to the principles of ALARA. Comparison: None. Findings: The paranasal sinuses and left mastoid air cells are clear. Carotid siphon calcifications a re noted. Opacified right mastoid air cells and right middle ear cavity. The calvarium and skull base are intact. There is no mass, hematoma, midline shift, acute infarct. White matter hypodensity is no nspecific but suggestive of microvascular ischemic change. The ventricles and sulci demonstrate mild age-related involutional changes. Impression: No acute intracranial abnormality. Atrophy and microvascular ischemic changes. Opacified right mastoi d air cells and right middle ear cavity. Electronically signed by: Candido Dominguez M.D. 09/10/2018 1:44 PM
--- NOTE | 2018-09-10 14:26 | Emergency Department Note ---
Entered by Delmis Aiken acting as a scribe for History of Present Illness General Chief complaint: Shortness of Breath/Dyspnea Source: patient, EMS and RN notes reviewed Mode of arrival: EMS Limitations: no limitations History of Present Illness Onset (ago): hour(s) (this morning) Location: chest Pain Consistency: + constant Quality: + other (shortness of breath) Associated symptoms: + confusion and + shortness of breath Treatments prior to arrival: other (non rebreather ) The patient is an 88 year old female with a history of COPD, cardiomyopathy, type 2 diabetes, CHF, hyperkalemia, heart disease, and left hip surgery who presents to the ED via EMS with complaints of constant shortness of breath that onset this morning. Per nursing staff, the patient presents from [facility] post left hip surgery in [place] 1 month ago. They state that she is normally on 2 liters of oxygen but upon arrival of EMS patient was found to be significantly hypoxic. Per nursing staff, the patient was placed on a non rebreather and went up to 100% oxygen saturation. The patient states that she takes a baby aspirin. Per daughter, the patient has been confused for the past 3 days. Home Medications Home Medications Medication Instructions Recorded Confirmed Type Fleet Enema 133 ml ME DAILY PRN 08/17/18 09/10/18 History aspirin 81 mg PO DAILY 08/17/18 09/10/18 History atorvastatin 10 mg PO HS 08/17/18 09/10/18 History bisacodyl 10 mg ME DAILY PRN 08/17/18 09/10/18 History carvedilol 12.5 mg PO BIDM 08/17/18 09/10/18 History cholecalciferol (vitamin D3) 2,000 unit PO DAILY 08/17/18 09/10/18 History [Vitamin D3] docusate sodium [Colace] 100 mg PO BID PRN 08/17/18 09/10/18 History enoxaparin [Lovenox] 30 mg SUBCUT DAILY 08/17/18 09/10/18 History ferrous sulfate 325 mg PO DAILY 08/17/18 09/10/18 History lidocaine [Lidoderm] 2 patch TOPICAL QAM 08/17/18 09/10/18 History magnesium hydroxide 30 ml PO DAILY PRN 08/17/18 09/10/18 History olanzapine 7.5 mg PO HS 08/17/18 09/10/18 History pantoprazole [Protonix] 40 mg PO BID 08/17/18 09/10/18 History sertraline 25 mg PO DAILY 08/17/18 09/10/18 History allopurinol 100 mg PO DAILY #0 tab 08/23/18 09/10/18 Rx tramadol 50 mg PO Q4H PRN #30 tab 08/23/18 09/10/18 Rx acetaminophen 650 mg PO Q4H PRN 09/10/18 09/10/18 History dextrose [Glucose Gel] 40 % PO UD PRN 09/10/18 09/10/18 History furosemide 40 mg PO DAILY 09/10/18 09/10/18 History glipizide 2.5 mg PO QDB 09/10/18 09/10/18 History glucagon (human recombinant) 1 mg SUBCUT UD PRN 09/10/18 09/10/18 History nystatin 1 applic TOPICAL BID 09/10/18 09/10/18 History polyethylene glycol 3350 17 g PO DAILY PRN 09/10/18 09/10/18 History sennosides-docusate sodium 1 tab PO DAILY PRN 09/10/18 09/10/18 History [Senna-S] vancomycin 125 mg PO Q6H 09/10/18 09/10/18 History Allergies Allergy/AdvReac Type Severity Reaction Status Date / Time No Known Allergies Allergy Unverified 08/17/18 10:54 Past Med/Surg History Medical History DM2 (diabetes mellitus, type 2) (Chronic) CHF (congestive heart failure) Hyperkalemia (Acute) Acute renal insufficiency (Acute) UTI (urinary tract infection) (Acute) Heart disease (Chronic) Diabetes (Chronic) No pertinent family history Surgical History Status post hip surgery (Resolved) Family History Other No pertinent family history Social History Preferred Language: Citizen Of [place] Communication Ability: Impaired Beliefs That Will Affect Care: None marital status: Current Living Situation: Rehab current occupational status: retired Feels Safe at Home: Yes Smoking Status: Never smoker Second Hand Exposure: No Hx Alcohol Use: No Hx Substance Use: No Review of Systems See HPI for pertinent positives & negatives. and A total of 10 systems reviewed and were otherwise negative Physical Exam Vital Signs Vital Signs - 24 hr 09/10/18 08:59 09/10/18 09:31 09/10/18 10:13 Temperature 36.8 C Temperature Source Oral Sepsis Recent Fever Within 48 Hours No Sepsis New/Unexplained Change in Mental Status No Sepsis Action Taken by Nursing No Action Required Pulse Rate 82 Pulse Rate [Right Finger] 80 77 Respiratory Rate 26 H 24 24 Respiratory Effort / Characteristics Spontaneous Blood Pressure 141/55 H Blood Pressure [Right Arm] 133/75 Blood Pressure Mean 83 Blood Pressure Mean [Right Arm] 94 Pulse Oximetry 97 98 94 Oxygen Delivery Method Room Air Nasal Cannula Room Air Oxygen Flow Rate 4 3 09/10/18 10:35 09/10/18 10:44 09/10/18 12:57 Temperature 36.8 C Temperature Source Rectal Sepsis Recent Fever Within 48 Hours Sepsis New/Unexplained Change in Mental Status Sepsis Action Taken by Nursing Pulse Rate Pulse Rate [Right Finger] 73 74 Respiratory Rate 22 22 Respiratory Effort / Characteristics Blood Pressure Blood Pressure [Right Arm] 128/82 134/78 Blood Pressure Mean Blood Pressure Mean [Right Arm] 97 96 Pulse Oximetry 96 97 98 Oxygen Delivery Method Nasal Cannula Nasal Cannula Oxygen Flow Rate 3 2 2 GENERAL: Sitting up in bed, on nasal cannula, ill-appearing, mild distress, non- toxic EYE EXAM: Normal conjunctiva. OROPHARYNX: no exudate, no erythema, lips, buccal mucosa, and tongue normal and mucous membranes are moist NECK: supple, no nuchal rigidity, no adenopathy, non-tender LUNGS: Diminished at bilateral bases. HEART: no murmurs, S1 normal and S2 normal ABDOMEN: abdomen soft, non-tender, normo-active bowel sounds, no masses, no rebound or guarding. BACK: Back is symmetrical on inspection and there is no deformity, no midline tenderness, no CVA tenderness. SKIN: no rashes and no bruising UPPER EXTREMITIES: upper extremities are grossly normal. LOWER EXTREMITIES: No pitting edema. NEURO EXAM: Normal sensorium, cranial nerves II-XII grossly intact, normal speech, no gross weakness of arms, no gross weakness of legs. Course 0900: Past medical records reviewed. The patient was evaluated in room B04B. A complete history and physical examination was performed. 1214: The patient states that she is still short of breath. 1303: Per daughter, the patient has been confused for the past 3 days. 1351: I reviewed the patient's case with Dr. Jeovany Rubin - [facility]. He will evaluate the patient for further management. Consultations Consultation #1: 1351: I reviewed the patient's case with Dr. Jeovany Rubin - [facility]. He will evaluate the patient for further management. Time: 13:51 Administered Medications Discontinued Medications Albuterol (Duoneb) 3 ml INH NOW STA Stop: 09/10/18 09:14 Last Admin: 09/10/18 09:30 Dose: 3 ml Documented by: [id number] Furosemide (Lasix) Confirm Administered Dose 40 mg IV .STK-MED ONE Stop: 09/10/18 12:44 Last Admin: 09/10/18 12:45 Dose: 40 mg Documented by: [id number] Furosemide 40 mg/ Syringe 4 mls @ 4 mls/min IV ONE ONE Stop: 09/10/18 12:16 Last Admin: 09/10/18 12:45 Dose: Not Given Documented by: [id number] Medical Decision Making Differential Diagnosis Differential diagnoses Pneumonia, bronchitis, COPD/Asthma exacerbation, pneumothorax, pulmonary embolism, congestive heart failure, acute coronary syndrome as well as other etiologies were entertained. Medical Records Attestation: I reviewed the patient's medical records. Home Medications Current Medication List: was personally reviewed by me Laboratory Data Attestation: I reviewed the patient's lab results. Result diagrams: 09/10/18 09:32 09/10/18 09:32 Lab Results 09/10/18 09/10/18 09/10/18 Range/Units 09:32 09:32 09:32 WBC 9.97 (4.8-10.8) K/uL RBC 2.79 L (4.2-5.4) M/uL Hgb 9.0 L (12.0-16.0) g/dL Hct 27.6 L (37-47) % MCV 98.9 (80-100) fL MCH 32.3 (25-34) pg MCHC 32.6 (32-36) g/dL RDW Std Deviation 70.8 H (36.4-46.3) fL RDW Coeff of Maci 19.9 H (11.5-14.5) % Plt Count 254 (130-400) K/uL MPV 9.9 (7.4-10.4) fL Immature Gran % (Auto) 0.7 % Neut % (Auto) 72.3 % Lymph % (Auto) 13.6 % [place] % (Auto) 11.9 % Eos % (Auto) 1.2 % Baso % (Auto) 0.3 % Immature Gran # (Auto) 0.07 H (0.00-0.02) K/uL Neut # (Auto) 7.20 H (1.4-6.5) K/uL Lymph # (Auto) 1.36 (1.2-3.4) K/uL [place] # (Auto) 1.19 H (0.11-0.59) K/uL Eos # (Auto) 0.12 (0-0.5) K/uL Baso # (Auto) 0.03 (0-0.2) K/uL PT 11.5 (9.0-12.0) Seconds INR 1.1 (0.9-1.1) APTT 31.6 H (21.0-31.0) Seconds PTT Ratio 1.2 Sodium 138 (136-145) mmol/L Potassium 4.6 (3.5-5.1) mmol/L Chloride 104 (98-107) mmol/L Carbon Dioxide 27 (21-32) mmol/L Anion Gap 8.0 (3-11) BUN 46 H (7-18) mg/dl Creatinine 1.30 H (0.6-1.2) mg/dl Est Cr Clr Drug Dosing 28.2 ml/min Est GFR ( Amer) 42.1 Est GFR (Non-Af Amer) 36.3 BUN/Creatinine Ratio 35.1 H (10-20) Glucose 126 H (70-99) mg/dl Calcium 8.7 (8.5-10.1) mg/dl Total Bilirubin 0.5 (0.2-1) mg/dl AST 15 (15-37) U/L ALT 19 (12-78) U/L Alkaline Phosphatase 110 (45-117) U/L Troponin I 0.019 (0-0.045) ng/ml NT-Pro-B Natriuret Pep 12575 H (0-1800) pg/ml Total Protein 6.9 (6.4-8.2) gm/dl Albumin 2.8 L (3.4-5.0) gm/dl Globulin 4.1 H (2.5-4.0) gm/dl Albumin/Globulin Ratio 0.7 L (0.9-2) Urine Color Urine Appearance (Clear) Urine pH (4.5-7.5) Ur Specific [place] (1.000-1.030) Urine Protein (Negative) Urine Glucose (UA) (Negative) Urine Ketones (Negative) Urine Blood (Negative) Urine Nitrite (Negative) Urine Bilirubin (Negative) Urine Urobilinogen (Negative) Ur Leukocyte Esterase (Negative) Influenza Type A (PCR) (Neg) Influenza Type B (PCR) (Neg) 09/10/18 09/10/18 Range/Units 10:10 10:30 WBC (4.8-10.8) K/uL RBC (4.2-5.4) M/uL Hgb (12.0-16.0) g/dL Hct (37-47) % MCV (80-100) fL MCH (25-34) pg MCHC (32-36) g/dL RDW Std Deviation (36.4-46.3) fL RDW Coeff of Maci (11.5-14.5) % Plt Count (130-400) K/uL MPV (7.4-10.4) fL Immature Gran % (Auto) % Neut % (Auto) % Lymph % (Auto) % [place] % (Auto) % Eos % (Auto) % Baso % (Auto) % Immature Gran # (Auto) (0.00-0.02) K/uL Neut # (Auto) (1.4-6.5) K/uL Lymph # (Auto) (1.2-3.4) K/uL [place] # (Auto) (0.11-0.59) K/uL Eos # (Auto) (0-0.5) K/uL Baso # (Auto) (0-0.2) K/uL PT (9.0-12.0) Seconds INR (0.9-1.1) APTT (21.0-31.0) Seconds PTT Ratio Sodium (136-145) mmol/L Potassium (3.5-5.1) mmol/L Chloride (98-107) mmol/L Carbon Dioxide (21-32) mmol/L Anion Gap (3-11) BUN (7-18) mg/dl Creatinine (0.6-1.2) mg/dl Est Cr Clr Drug Dosing ml/min Est GFR ( Amer) Est GFR (Non-Af Amer) BUN/Creatinine Ratio (10-20) Glucose (70-99) mg/dl Calcium (8.5-10.1) mg/dl Total Bilirubin (0.2-1) mg/dl AST (15-37) U/L ALT (12-78) U/L Alkaline Phosphatase (45-117) U/L Troponin I (0-0.045) ng/ml NT-Pro-B Natriuret Pep (0-1800) pg/ml Total Protein (6.4-8.2) gm/dl Albumin (3.4-5.0) gm/dl Globulin (2.5-4.0) gm/dl Albumin/Globulin Ratio (0.9-2) Urine Color Yellow Urine Appearance Clear (Clear) Urine pH 5.0 (4.5-7.5) Ur Specific [place] 1.020 (1.000-1.030) Urine Protein Negative (Negative) Urine Glucose (UA) Negative (Negative) Urine Ketones Negative (Negative) Urine Blood Negative (Negative) Urine Nitrite Negative (Negative) Urine Bilirubin Negative (Negative) Urine Urobilinogen Negative (Negative) Ur Leukocyte Esterase Negative (Negative) Influenza Type A (PCR) Neg for Influ A (Neg) Influenza Type B (PCR) Neg for Influ B (Neg) Imaging Data Radiologist's Impression: Radiology results as stated below per my review and the radiologist's interpretation: HEAD CT NONCONTRAST CT DOSE: 614.27 mGy.cm HISTORY: Altered mental status. TECHNIQUE: Multiaxial CT images of the head were performed without the use of intravenous contrast. Automated exposure control was utilized for this study. A dose lowering technique was utilized adhering to the principles of ALARA. Comparison: None. Findings: The paranasal sinuses and left mastoid air cells are clear. Carotid siphon calcifications are noted. Opacified right mastoid air cells and right middle ear cavity. The calvarium and skull base are intact. There is no mass, hematoma, midline shift, acute infarct. White matter hypodensity is nonspecific but suggestive of microvascular ischemic change. The ventricles and sulci demonstrate mild age-related involutional changes. Impression: No acute intracranial abnormality. Atrophy and microvascular ischemic changes. Opacified right mastoid air cells and right middle ear cavity. Electronically signed by: Candido Dominguez M.D. 09/10/2018 1:44 PM Dictated: 09/10/18 1339 Transcribed: 09/10/18 1339 XR chest 1V portable CLINICAL HISTORY: 88 years-old Female presenting with Dyspnea. TECHNIQUE: Portable semiupright AP view of the chest was obtained. COMPARISON: 08/21/2018. FINDINGS: The patient is GABONESE rotated. Left subclavian implanted cardiac defibrillator with lead to the right ventricular apex. Median sternotomy wires and bypass graft rings noted. The subcutaneous component of the ICD projects over the left lower lung degrading evaluation. Atherosclerosis of the aortic arch. Cardiac silhouette moderately enlarged. Pulmonary vascular prominence similar to prior exam. Slight improved aeration of the lung bases. Stable slight decrease in interstitial prominence. Mild central added density remains. Small bilateral pleural effusions may be slightly decreased from prior. No pneumothorax. Osteopenia suspected. Cholecystectomy clips noted. IMPRESSION: 1. Cardiomegaly with stable to slight decrease volume overload and congestive change. Mild pulmonary edema remains. 2. Stable slight decrease in bilateral pleural effusions with slight improved aeration of the lung bases. Electronically signed by: Sean Varghese M.D. 09/10/2018 9:49 AM Dictated: 09/10/18 0947 Transcribed: 09/10/18 0947 ECG Data Attestation: I personally reviewed and interpreted this ECG as follows: Indication: SOB/dyspnea Rate (beats per minute): 80 Rhythm: sinus rhythm Findings: + other (Septal Q waves, poor baseline, normal axis); no PVC Blood Pressure Blood Pressure Findings: Normal blood pressure MDM Narrative Patient is an 88-year-old female who presents the ER following recent hip surgery a month ago for shortness of breath which started this morning. Daughter also notes that patient has been confused for the past 3 days with waxing and waning confusion. Labs were obtained and showed no significant leukocytosis with persistent anemia at 9. BMP was unremarkable with exception of a creatinine of 1.3. No significant transaminitis. Bilirubin is unremarka ble. Troponin was detectable but not positive. BNP elevated at 12,000. UA was unremarkable. Influenza was negative. Chest x-ray was extremely difficult to interpret but does appear to be slightly improved from previous. Based on exam I do feel as though she does have some mild component of CHF. Uncertain of the true cause of the confusion at this time question if it was hypoxia although I f avor this is not the case for the whole weekend. Did not explore PE due to patient taking subcu Lovenox shots and I favor this is unlikely. Do favor the initial hypoxia was likely secondary to her not being on her oxygen. Do not believe that this explains her confusion at this time. Nursing has noted that she has been extremely confused intermittently as well as the daughter. Did discuss with hospice for further observation secondary to confusion. Impression & Plan Confusion, Hypoxia Discharge Plan Visit Data Chief Complaint: Shortness of Breath/Dyspnea ED Provider: Ronnell Santiago Discharge Problem: Confusion, Hypoxia Patient Disposition: Being Evaluated by Hospitalist Forms Stand Alone Forms: My [facility] Prescriptions Prescriptions: No Action carvedilol 12.5 mg Tablet 12.5 mg PO BIDM RF: 0 atorvastatin 10 mg Tablet 10 mg PO HS RF: 0 olanzapine 5 mg Tablet 7.5 mg PO HS RF: 0 aspirin 81 mg Tablet,Delayed Release (Dr/Ec) 81 mg PO DAILY RF: 0 bisacodyl 10 mg Suppository 10 mg ME DAILY PRN (Reason: Constipation) RF: 0 pantoprazole [Protonix] 40 mg Tablet,Delayed Release (Dr/Ec) 40 mg PO BID RF: 0 ferrous sulfate 325 mg (65 mg iron) Tablet 325 mg PO DAILY RF: 0 lidocaine [Lidoderm] 5 % Adhesive Patch,Medicated 2 patch TOPICAL QAM RF: 0 Fleet Enema 19-7 gram/118 mL Enema 133 ml ME DAILY PRN (Reason: Constipation) RF: 0 docusate sodium [Colace] 100 mg Capsule 100 mg PO BID PRN (Reason: Constipation) RF: 0 sertraline 25 mg Tablet 25 mg PO DAILY RF: 0 enoxaparin [Lovenox] 30 mg/0.3 mL Syringe 30 mg SUBCUT DAILY RF: 0 magnesium hydroxide 2,400 mg/10 mL Suspension 30 ml PO DAILY PRN (Reason: Constipation) RF: 0 cholecalciferol (vitamin D3) [Vitamin D3] 2,000 unit Capsule 2,000 unit PO DAILY RF: 0 tramadol 50 mg Tablet 50 mg PO Q4H PRN (Reason: Pain) Qty: 30 RF: 0 allopurinol 300 mg Tablet 100 mg PO DAILY Qty: 0 RF: 0 acetaminophen 325 mg Tablet 650 mg PO Q4H PRN (Reason: Pain) RF: 0 polyethylene glycol 3350 17 gram Powder In Packet 17 g PO DAILY PRN (Reason: Constipation) RF: 0 sennosides-docusate sodium [Senna-S] 8.6-50 mg Tablet 1 tab PO DAILY PRN (Reason: Constipation) RF: 0 dextrose [Glucose Gel] 40 % Gel 40 % PO UD PRN (Reason: Hypoglycemia) RF: 0 vancomycin 125 mg Capsule 125 mg PO Q6H RF: 0 nystatin 100,000 unit/gram Powder 1 applic TOPICAL BID RF: 0 glipizide 5 mg Tablet 2.5 mg PO QDB RF: 0 glucagon (human recombinant) 1 mg Recon Soln 1 mg subcut UD PRN (Reason: Hypoglycemia) RF: 0 furosemide 40 mg tablet 40 mg PO DAILY RF: 0 Referrals Referrals: [facility] [Primary Care Provider] - The scribe's documentation has been prepared under my direction and personally reviewed by me in its entirety. I confirm that the note above accurately reflects all work, treatment, procedures, and medical decision making performed by me.
--- NOTE | 2018-09-10 14:45 | History & Physical Report ---
Date of Service September 10, 2018 Assessment & Plan (1) Acute on chronic diastolic CHF (congestive heart failure): Recent cardiac echo revealed normal left ventricular ejection fraction. Administer intravenous Lasix once daily and monitor urine output. Will be careful not to over diuresis since she was recently hospitalized with hypovolemia, acute kidney injury, and hyperkalemia. Present on Admission?: Yes (2) Shortness of breath: Due to CHF. Supplemental oxygen per nasal cannula. Wean off as tolerated Present on Admission?: Yes (3) DM2 (diabetes mellitus, type 2): ADA diet. Continue glipizide. Sliding scale insulin coverage as needed (4) C. difficile enteritis: She currently is being treated with oral vancomycin which we will continue (5) Altered mental status: Provide supportive care. Treat CHF Present on Admission?: Yes (6) DVT prophylaxis: Continue Lovenox subcu History of Present Illness [facility] of breath, altered mental status 88-year-old female who recently had a left hip fracture repair in [place]. She was at [facility] rehabilitation when she was admitted in early August with volume depletion, acute kidney injury, UTI, C. difficile enteritis. Now she has some shortness of b reath and altered mental status. She appears to have mild congestive heart failure. Cardiac echo done 1 month ago reveals normal left ventricular ejection fraction. This appears to be diastolic CHF. Head CT scan reveals no changes. She probably has a degree of dementia and may even have some acute hospital related delirium. She is oriented to name only at the time of my examination but is pleasant and conversant. She has a Zelaya catheter in place now and has been given Lasix in the ED. Oxygen saturation is 90% on 2 L. She will continue with vancomycin orally. She has completed her course of Cipro for the E. coli UTI. She is a DNR patient. Allergies Allergy/AdvReac Type Severity Reaction Status Date / Time No Known Allergies Allergy Unverified 08/17/18 10:54 Home Medications Home Medications Medication Instructions Recorded Confirmed Type Fleet Enema 133 ml VT DAILY PRN 08/17/18 09/10/18 History aspirin 81 mg PO DAILY 08/17/18 09/10/18 History atorvastatin 10 mg PO HS 08/17/18 09/10/18 History bisacodyl 10 mg VT DAILY PRN 08/17/18 09/10/18 History carvedilol 12.5 mg PO BIDM 08/17/18 09/10/18 History cholecalciferol (vitamin D3) 2,000 unit PO DAILY 08/17/18 09/10/18 History [Vitamin D3] docusate sodium [Colace] 100 mg PO BID PRN 08/17/18 09/10/18 History enoxaparin [Lovenox] 30 mg SUBCUT DAILY 08/17/18 09/10/18 History ferrous sulfate 325 mg PO DAILY 08/17/18 09/10/18 History lidocaine [Lidoderm] 2 patch TOPICAL QAM 08/17/18 09/10/18 History magnesium hydroxide 30 ml PO DAILY PRN 08/17/18 09/10/18 History olanzapine 7.5 mg PO HS 08/17/18 09/10/18 History pantoprazole [Protonix] 40 mg PO BID 08/17/18 09/10/18 History sertraline 25 mg PO DAILY 08/17/18 09/10/18 History allopurinol 100 mg PO DAILY #0 tab 08/23/18 09/10/18 Rx tramadol 50 mg PO Q4H PRN #30 tab 08/23/18 09/10/18 Rx acetaminophen 650 mg PO Q4H PRN 09/10/18 09/10/18 History dextrose [Glucose Gel] 40 % PO UD PRN 09/10/18 09/10/18 History furosemide 40 mg PO DAILY 09/10/18 09/10/18 History glipizide 2.5 mg PO QDB 09/10/18 09/10/18 History glucagon (human recombinant) 1 mg SUBCUT UD PRN 09/10/18 09/10/18 History nystatin 1 applic TOPICAL BID 09/10/18 09/10/18 History polyethylene glycol 3350 17 g PO DAILY PRN 09/10/18 09/10/18 History sennosides-docusate sodium 1 tab PO DAILY PRN 09/10/18 09/10/18 History [Senna-S] vancomycin 125 mg PO Q6H 09/10/18 09/10/18 History Past Med/Surg History Medical History DVT prophylaxis Altered mental status (Acute) C. difficile enteritis (Acute) Shortness of breath (Acute) Acute on chronic diastolic CHF (congestive heart failure) (Acute) DM2 (diabetes mellitus, type 2) (Chronic) CHF (congestive heart failure) Hyperkalemia (Acute) Acute renal insufficiency (Acute) UTI (urinary tract infection) (Acute) Heart disease (Chronic) Diabetes (Chronic) No pertinent family history Surgical History Status post hip surgery (Resolved) Family History Other No pertinent family history Social History Preferred Language: Uz[place] Communication Ability: Impaired Beliefs That Will Affect Care: None marital status: Current Living Situation: Rehab current occupational status: retired Feels Safe at Home: Yes Smoking Status: Never smoker Second Hand Exposure: No Hx Alcohol Use: No Hx Substance Use: No Review of Systems Review of Systems: Constitutional-no fever or chills ENT-no blurred vision, no double vision, no epistaxis, no sore throat Respiratory-no cough, no wheezing. Shortness of breath, mostly with exertion Cardiac-no palpitations, no chest pain, no syncope GI-no nausea, vomiting, diarrhea, melena, hematochezia -no urinary retention, no urinary incontinence, no dysuria, no hematuria Musculoskeletal-no joint pain, no muscle tenderness Skin-no bruising, no rashes, no pruritus Neuro-no isolated weakness, no paresthesia, no weakness Psych-no depression, no anxiety Physical Exam Physical Exam: General-alert but oriented x1 only. No fevers, no chills HEENT-head atraumatic and normocephalic, TMs intact bilaterally, pupils equal and reactive to light, extraocular muscles intact Neck-no lymphadenopathy or thyromegaly, trachea midline Chest-bibasilar inspiratory rales. No rhonchi. No wheezing Cardiac-regular rate and rhythm, normal S1 and S2. Grade 1/6 systolic murmur at the apex Abdomen-normal bowel sounds, nontender, no hepatosplenomegaly Extremities-no cyanosis, clubbing. 1+ pitting edema bilateral lower extremities below the knees Neuro-cranial nerves II through XII intact, motor and sensory function within normal limits, generalized weakness consistent with age, no focal deficits Psych-normal affect Results & Data Vital Signs (Past 12 Hours) Vital Signs Temp Pulse Pulse Resp BP BP Pulse Ox 09/10/18 14:33 71 16 149/59 H 98 09/10/18 12:57 74 22 134/78 98 09/10/18 10:44 36.8 C 73 22 128/82 97 09/10/18 10:35 96 09/10/18 10:13 77 24 133/75 94 09/10/18 09:31 80 24 98 09/10/18 08:59 36.8 C 82 26 H 141/55 H 97 Laboratory Results 09/10/18 09:32 09/10/18 09:32
[2018-09-10] MEDS ORDERED: DOCUSATE SODIUM 100 MG CAP PO PRN (15:32)
[2018-09-10] MEDS ORDERED: DOCUSATE SODIUM/SENNA 50/8.6MG TAB PO PRN (15:32)
[2018-09-10] MEDS ORDERED: SOD PHOSPHATE/SOD BIPHOSPHATE ENEMA 132 ML BTL PR PRN (15:32)
[2018-09-10] MEDS ORDERED: ACETAMINOPHEN 325 MG TAB PO PRN (15:32)
[2018-09-10] MEDS ORDERED: GLUCOSE 40% GEL 15 GM TUBE PO PRN (15:32)
[2018-09-10] MEDS ORDERED: TRAMADOL HCL 50 MG TABLET PO PRN (15:32)
[2018-09-10] MEDS ORDERED: POLYETHYLENE (MIRALAX) 17 GM PACK PO PRN (15:32)
[2018-09-10] MEDS ORDERED: ALUMINUM/MAGNESIUM SUSP 30 ML UDC PO PRN (15:32)
[2018-09-10] MEDS ORDERED: BISACODYL 10 MG SUPP PR PRN (15:32)
[2018-09-10] MEDS ORDERED: ONDANSETRON INJ 2 MG/ML 2 ML VIAL IV PRN (15:32)
[2018-09-10] MEDS ORDERED: MAGNESIUM HYDROXIDE SUSP 30 ML UDC PO PRN (15:48)
[2018-09-10] MEDS: RASPBERRY SYRUP 5 ML UDP PO SCH ×2 (16:27→21:34)
[2018-09-10] MEDS: VANCOMYCIN HCL 125 MG/2.5ML SOLN PO SCH ×2 (16:27→21:34)
[2018-09-10] MEDS: CARVEDILOL 12.5 MG TAB PO SCH (16:28)
[2018-09-10] MEDS: PANTOprazole 40 MG TAB PO SCH (20:04)
[2018-09-10] MEDS: OLANZAPINE 2.5 MG TAB PO SCH (20:04)
[2018-09-10] MEDS: ATORVASTATIN 10 MG TAB PO SCH (20:04)
[2018-09-10] MEDS: NYSTATIN POWDER 15GM BTL EXT SCH (20:05)
[2018-09-11] MEDS: RASPBERRY SYRUP 5 ML UDP PO SCH ×4 (04:23→21:11)
[2018-09-11] MEDS: VANCOMYCIN HCL 125 MG/2.5ML SOLN PO SCH ×4 (04:23→21:37)
[2018-09-11] MEDS: glipiZIDE 5 MG TAB PO SCH (06:39)
[2018-09-11 06:43] LABS: Basophils # (auto) 0.03 K/uL (0-0.2); Basophils % (auto) 0.3 %; Eosinophils # (auto) 0.13 K/uL (0-0.5); Eosinophils % (auto) 1.4 %; Hemoglobin 8.6 g/dL (12.0-16.0); Immature Granulocytes # (auto) 0.06 K/uL (0.00-0.02); Immature Granulocytes % (auto) 0.6 %; Mean Corpuscular Hgb Conc 31.9 g/dL (32-36); Mean Corpuscular Volume 98.5 fL (80-100); Mean Platelet Volume 9.5 fL (7.4-10.4); Monocytes # (auto) 1.37 K/uL (0.11-0.59); Monocytes % (auto) 14.4 %; Neutrophils % (auto) 64.3 %; Platelet Count 233 K/uL (130-400); RDW Coefficient of Variation 19.6 % (11.5-14.5); RDW Standard Deviation 71.2 fL (36.4-46.3); Red Blood Count 2.74 M/uL (4.2-5.4); White Blood Count 9.49 K/uL (4.8-10.8)
[2018-09-11 07:13] LABS: BUN Creatinine Ratio 34.1 (10-20); Calcium 8.1 mg/dl (8.5-10.1); Creatinine Clr Calc Pharmacy 24.9 ml/min; Est GFR (Non-African American) 31.1; Potassium 4.5 mmol/L (3.5-5.1)
[2018-09-11] MEDS: CHOLECALCIFEROL 1,000 UNITS TAB PO SCH ×2 (08:32→12:07)
[2018-09-11] MEDS: ENOXAPARIN INJ 30 MG/0.3 ML SYR SQ SCH (08:32)
[2018-09-11] MEDS: ALLOPURINOL 100 MG TAB PO SCH ×2 (08:32→12:08)
[2018-09-11] MEDS: CARVEDILOL 12.5 MG TAB PO SCH ×3 (08:35→17:13)
[2018-09-11] MEDS: FERROUS SULFATE 325 MG TAB PO SCH ×2 (08:35→12:08)
[2018-09-11] MEDS: ASPIRIN 81 MG ECTAB PO SCH ×2 (08:35→12:08)
[2018-09-11] MEDS: NYSTATIN POWDER 15GM BTL EXT SCH ×3 (08:36→21:42)
[2018-09-11] MEDS: LIDOCAINE 5% 1 PATCH TD SCH (08:36)
[2018-09-11] MEDS: PANTOprazole 40 MG TAB PO SCH ×3 (08:36→21:09)
[2018-09-11] MEDS: FUROSEMIDE 40 MG in SYRINGE 0 ML IV SCH (10:04)
--- NOTE | 2018-09-11 11:01 | Family Medicine Progress Note ---
Date of Service September 11, 2018 Assessment & Plan (1) Altered mental status: 88 y/o F with PMH DM2, CHF, CAD presents with SOB and AMS s/p L hip fx repair in [place] found to have CHF exacerbation. Metabolic Encephalopathy with underlying dementia -likely from chf. No sign of infection. No hypoglycemia. Labs unremarkable. Head CT reveals no ortiz -Of note, speech was consulted on last visit in August and r/o Aspiration pneumonia: cleared pt to eat -more responsive in the afternoon Acute on chronic diastolic CHF/SOB -CXR: Cardiomegaly with stable volume overload and congestive change. Mild pulmonary edema -Recent cardiac ECHO 08/18 revealed normal left ventricular ejection fraction -IV Lasix 40 mg once daily, monitor urine output and daily wts -BNP ~01344 -will not over diuresis, was recently hospitalized with hypovolemia, acute kidney injury, and hyperkalemia -breathing issues likely 2/2 CHF. Supplemental oxygen per nasal cannula. On RA at present Pressure ulcer of left heel, unstageable, POA -continue dressing and boots DM2 -Cont glipizide. SSI C. difficile enteritis -currently is being treated with oral vancomycin. This was started on 08/23 on day of d/c from last visit, but unclear if pt has been taking it since d/c Heart Disease -Cont ASA, Atorvastatin, Carvedilol Anemia -Hgb 8.6. Appears at baseline. No concerns for acute bleeding -normocytic, normochromic -Cont daily PO iron -Cont trend h/h Other -Pt currently on Allopurinol and Zyprexa. Chart review did not reveal why pt takes these home meds, however, these were continued here. As pt's mentation improves, can elicit further history FEN/GI: HH/Diabetic Diet DVT prophylaxis: Lovenox SQ DNR/DNI Dispo: Tele. Moving forward need to involve CM to determine placement (2) C. difficile enteritis: (3) Shortness of breath: (4) CHF (congestive heart failure): (5) Heart disease: Supervising Physician Co-Signing Physician Notes Resident Physician Supervision Note: I independently interviewed and examined the patient and verified the araiza history and physical, reviewed labs and image studies, discussed the case with the resident Dr. Roberts and agree with the findings and care plan. Subjective 88 y/o F found in bed this AM appearing very tired. Was difficulty to arouse verbally, responding to pain stimulus only. Reports that this is about the same as she has been. Later in day was more with it, able to answer questions. Tolerated PO intake of food and meds. A&Ox2. No other acute concerns or complaints. Review of Systems Review of Systems: All systems reviewed & are unremarkable except as noted in HPI & below Physical Exam Constitutional: + disheveled Eyes: Unable to assess ENMT: external ear and nose normal, oropharynx normal Respiratory: crackles in lower/mid lung torres Cardiovascular: RRR, no murmur, no edema Gastrointestinal (Abdomen): normal bowel sounds, soft, nontender, no hepatosplenomegaly Skin: black eschar on L heel Neurologic: Somnolent Results & Data Vital Signs (Past 12 Hours) Vital Signs Temp Pulse Pulse Resp BP Pulse Ox 09/11/18 07:54 36.8 C 65 18 132/58 L 98 09/11/18 03:49 36.9 C 88 16 133/55 L 95 09/11/18 00:24 69 09/11/18 00:22 36.9 C 70 18 133/68 98 Laboratory Results Laboratory Results - last 24 hr 09/10/18 09/10/18 09/10/18 10:10 16:10 16:30 WBC RBC Hgb Hct MCV MCH MCHC RDW Std Deviation RDW Coeff of Maci Plt Count MPV Immature Gran % (Auto) Neut % (Auto) Lymph % (Auto) [place] % (Auto) Eos % (Auto) Baso % (Auto) Immature Gran # (Auto) Neut # (Auto) Lymph # (Auto) [place] # (Auto) Eos # (Auto) Baso # (Auto) Sodium Potassium Chloride Carbon Dioxide Anion Gap BUN Creatinine Est Cr Clr Drug Dosing Est GFR ( Amer) Est GFR (Non-Af Amer) BUN/Creatinine Ratio Glucose POC Glucose 91 Calcium Nasal Screen MRSA (PCR) Negative Influenza Type A (PCR) Neg for Influ A Influenza Type B (PCR) Neg for Influ B 09/11/18 09/11/18 06:22 06:22 WBC 9.49 RBC 2.74 L Hgb 8.6 L Hct 27.0 L MCV 98.5 MCH 31.4 MCHC 31.9 L RDW Std Deviation 71.2 H RDW Coeff of Maci 19.6 H Plt Count 233 MPV 9.5 Immature Gran % (Auto) 0.6 Neut % (Auto) 64.3 Lymph % (Auto) 19.0 [place] % (Auto) 14.4 Eos % (Auto) 1.4 Baso % (Auto) 0.3 Immature Gran # (Auto) 0.06 H Neut # (Auto) 6.10 Lymph # (Auto) 1.80 [place] # (Auto) 1.37 H Eos # (Auto) 0.13 Baso # (Auto) 0.03 Sodium 139 Potassium 4.5 Chloride 105 Carbon Dioxide 28 Anion Gap 6.0 BUN 50 H Creatinine 1.48 H Est Cr Clr Drug Dosing 24.9 Est GFR ( Amer) 36.0 Est GFR (Non-Af Amer) 31.1 BUN/Creatinine Ratio 34.1 H Glucose 94 POC Glucose Calcium 8.1 L Nasal Screen MRSA (PCR) Influenza Type A (PCR) Influenza Type B (PCR) Medications Administered Current Inpatient Medications Acetaminophen (Tylenol) 650 mg PO Q4H PRN PRN Reason: Pain or Fever Stop: 10/10/18 15:31 Al Hydrox/Mg Hydrox/Simethicone (Maalox) 15 ml PO Q4H PRN PRN Reason: Dyspepsia Stop: 10/10/18 15:31 Allopurinol (Zyloprim) 100 mg PO DAILY [facility] Stop: 10/11/18 08:59 Last Admin: 09/11/18 08:32 Dose: 100 mg Documented by: Aspirin (Ecotrin Ectab) 81 mg PO DAILY [facility] Stop: 10/11/18 08:59 Last Admin: 09/11/18 08:35 Dose: Not Given Documented by: Atorvastatin Calcium (Lipitor) 10 mg PO [facility] Stop: 10/10/18 20:59 Last Admin: 09/10/18 20:04 Dose: 10 mg Documented by: Bisacodyl (Dulcolax) 10 mg MO DAILY PRN PRN Reason: Constipation Stop: 10/10/18 15:31 [facility]il[facility] (Coreg) [facility] [place] [facility] [place]: 10/10/18 16:59 Last Admin: 09/11/18 08:35 Dose: Not Given Documented by: Docusate Sodium (Colace) 100 mg PO BID PRN PRN Reason: Constipation Stop: 10/10/18 15:31 Enoxaparin Sodium (Lovenox) 30 mg SQ DAILY [facility] Stop: 10/11/18 08:59 Last Admin: 09/11/18 08:32 Dose: 30 mg Documented by: Ferrous Sulfate (Feosol) 325 mg PO DAILY [facility] Stop: 10/11/18 08:59 Last Admin: 09/11/18 08:35 Dose: Not Given Documented by: Glipizide (Glucotrol) 2.5 mg PO DAILYBB [facility] Stop: 10/11/18 06:29 Last Admin: 09/11/18 06:39 Dose: 2.5 mg Documented by: Glucagon (Glucagen) 1 mg SQ UD PRN PRN Reason: HYPOGLYCEMIA Stop: 10/10/18 16:02 Glucose (Glucose 40%) 15 gm PO UD PRN PRN Reason: Hypoglycemia Stop: 10/10/18 15:31 Furosemide 40 mg/ Syringe 4 mls @ 4 mls/min IV DAILY [facility] Stop: 10/11/18 08:59 Last Admin: 09/11/18 10:04 Dose: 4 mls/min Documented by: Lidocaine (Lidoderm 5%) 2 patch TD QAM [facility] Stop: 10/11/18 08:59 Last Admin: 09/11/18 08:36 Dose: 2 patch Documented by: Magnesium Hydroxide (Milk Of Magnesia) 30 ml PO DAILY PRN PRN Reason: CONSTIPATION Stop: 10/10/18 15:47 Miscellaneous (Remove Lidoderm Patch) 1 ea N/A DAILY@2100 [facility] Stop: 10/11/18 20:59 Nystatin (Mycostatin) 1 appln EXT BID [facility] Stop: 10/10/18 20:59 Last Admin: 09/11/18 08:36 Dose: 1 appln Documented by: Olanzapine (Zyprexa) 7.5 mg PO HS [facility] Stop: 10/10/18 20:59 Last Admin: 09/10/18 20:04 Dose: 7.5 mg Documented by: Ondansetron HCl (Zofran) 4 mg IV Q6H PRN PRN Reason: Nausea Stop: 10/10/18 15:31 Pantoprazole Sodium (Protonix) 40 mg PO BID [facility] Stop: 10/10/18 20:59 Last Admin: 09/11/18 08:36 Dose: Not Given Documented by: Polyethylene Glycol (Miralax Powder Packet) 17 gm PO QDL PRN PRN Reason: Constipation Stop: 10/10/18 15:31 Raspberry (Raspberry) 5 ml PO Q6H [facility] Stop: 09/24/18 15:59 Last Admin: 09/11/18 10:05 Dose: Not Given Documented by: Senna/Docusate Sodium (Senokot S) 1 tab PO QDL PRN PRN Reason: Constipation Stop: 10/10/18 15:31 Sodium Biphosphate/Sodium Phosphate (Fleet Enema) 132 ml MO DAILY PRN PRN Reason: Constipation Stop: 10/10/18 15:31 Tramadol HCl (Ultram) 50 mg PO Q4H PRN PRN Reason: Pain Stop: 10/10/18 15:31 Vancomycin HCl (Vancomycin Hcl) 125 mg PO Q6H [facility] Stop: 09/20/18 15:59 Last Admin: 09/11/18 10:05 Dose: Not Given Documented by: Vitamin D (Vitamin D3) 2,000 units PO DAILY [facility] Stop: 10/11/18 08:59 Last Admin: 09/11/18 08:32 Dose: 2,000 units Documented by: Resident Activity Tracking Resident Involvement: Resident Care Provided Care Provided: Adult Hospital Medicine
[2018-09-11] MEDS: GLUCAGON FOR INJ 1 MG VIAL SQ PRN (16:52)
[2018-09-11] MEDS: ATORVASTATIN 10 MG TAB PO SCH (21:06)
[2018-09-11] MEDS: OLANZAPINE 2.5 MG TAB PO SCH (21:07)
[2018-09-12] MEDS: RASPBERRY SYRUP 5 ML UDP PO SCH ×4 (04:08→21:30)
[2018-09-12] MEDS: VANCOMYCIN HCL 125 MG/2.5ML SOLN PO SCH ×4 (04:08→21:30)
[2018-09-12] MEDS: glipiZIDE 5 MG TAB PO SCH (05:50)
[2018-09-12 06:17] LABS: Basophils # (auto) 0.04 K/uL (0-0.2); Basophils % (auto) 0.5 %; Eosinophils # (auto) 0.22 K/uL (0-0.5); Eosinophils % (auto) 2.5 %; Hematocrit (blood only) 26.6 % (37-47); Hemoglobin 8.5 g/dL (12.0-16.0); Immature Granulocytes # (auto) 0.03 K/uL (0.00-0.02); Immature Granulocytes % (auto) 0.3 %; Lymphocytes # (auto) 1.72 K/uL (1.2-3.4); Lymphocytes % (auto) 19.5 %; Mean Corpuscular Volume 99.6 fL (80-100); Mean Platelet Volume 9.5 fL (7.4-10.4); Monocytes # (auto) 1.19 K/uL (0.11-0.59); Monocytes % (auto) 13.5 %; Neutrophils # (auto) 5.64 K/uL (1.4-6.5); Neutrophils % (auto) 63.7 %; Platelet Count 222 K/uL (130-400); RDW Coefficient of Variation 19.5 % (11.5-14.5); RDW Standard Deviation 70.5 fL (36.4-46.3); Red Blood Count 2.67 M/uL (4.2-5.4); White Blood Count 8.84 K/uL (4.8-10.8)
[2018-09-12 06:33] LABS: Albumin Level 2.5 gm/dl (3.4-5.0); BUN Creatinine Ratio 40.1 (10-20); Calcium 8.3 mg/dl (8.5-10.1); Creatinine Clr Calc Pharmacy 26.7 ml/min; Est GFR (African American) 39.2; Est GFR (Non-African American) 33.8; Potassium 4.3 mmol/L (3.5-5.1)
[2018-09-12 06:38] LABS: Albumin Globulin Ratio 0.7 (0.9-2); Bilirubin,Total 0.5 mg/dl (0.2-1); Globulin 3.8 gm/dl (2.5-4.0); Total Protein 6.3 gm/dl (6.4-8.2)
--- NOTE | 2018-09-12 07:07 | Family Medicine Progress Note ---
Date of Service September 12, 2018 Assessment & Plan (1) Altered mental status: 88 y/o F with PMH DM2, CHF, CAD presents with SOB and AMS s/p L hip fx repair in [place] found to have CHF exacerbation. Metabolic Encephalopathy with underlying dementia -Pt acutely delirious, seemingly more lucid later in the day. -Questionable underlying dementia-family states she was able to live on her own before hip surgery. -Delirious change possibly due to location change (presence in hospital) and contributing CHF exacerbation. -Of note, pt with hypoglycemic episodes, was on home sulfonylurea glipizide for past few days. Can be contributory. Will d/c with no added novolog yet. -Will also rule out further causes of acute mental change with TSH, Mag, Phos, Thiamine and B12 levels. -Will continue to monitor. -PT/OT eval Acute on chronic diastolic CHF/SOB -Symptomatically improving. On 2L oxygen currently. -Loss of 1060ml of fluid overnight. -Continue IV Lasix 40 mg once daily, monitor urine output and daily wts -CXR: Cardiomegaly with stable volume overload and congestive change. Mild pulmonary edema -Recent cardiac ECHO 08/18 revealed normal left ventricular ejection fraction -BNP ~43358 -PT/OT eval Pressure ulcer of left heel, unstageable, POA -continue dressing and boots DM2 -Discontinue Glipizide due to hypoglycemic episodes. -Will monitor sugar levels before starting Novolog and ISS. C. difficile enteritis -On oral vancomycin. Heart Disease -Cont ASA, Atorvastatin, Carvedilol Anemia -Hgb 8.6. Appears at baseline. No concerns for acute bleeding -normocytic, normochromic -Cont daily PO iron -Cont trend h/h Other -Pt currently on Allopurinol and Zyprexa. Chart review did not reveal why pt takes these home meds, however, these were continued here. As pt's mentation improves, can elicit further history FEN/GI: HH/Diabetic Diet DVT prophylaxis: Lovenox SQ DNR/DNI Supervising Physician Co-Signing Physician Notes Resident Physician Supervision Note: I independently interviewed and examined the patient and verified the araiza history and physical, reviewed labs and image studies, discussed the case with the resident Dr. Rizvi and agree with the findings and care plan. Subjective Ms. Shelby was arousable to voice and gentle sternal rub this AM but quickly went back to sleep. During rounds, she was AAOx2 and was conversant. Stated that her left foot which was in the boot hurt. Was able to move her toes without difficulty. Review of Systems Review of Systems: All systems reviewed & are unremarkable except as noted in HPI & below Physical Exam Physical Exam: General: Laying in bed eyes closed, responsive to voice and light sternal rub for a few seconds. HEENT: NC/AT, nasal cannula in nares, oropharynx open with few teeth. Chest: Nontender to palpation. CV: Decreased heart sounds, RRR. Resp: Breath sounds decreased bilaterally, no increased effort of breathing. Abdomen: Soft, nontender. Extremities: Boot on left foot. No edema noted in right lower extremity. Results & Data Vital Signs (Past 12 Hours) Vital Signs Temp Pulse Pulse Resp BP Pulse Ox 09/12/18 04:04 36.9 C 64 18 121/58 L 93 09/12/18 00:00 63 09/11/18 23:02 36.6 C 63 20 123/49 L 90 09/11/18 19:08 37.0 C 64 18 128/51 L 97 Laboratory Results Laboratory Results - last 24 hr 09/11/18 09/11/18 09/11/18 16:39 16:41 17:06 WBC RBC Hgb Hct MCV MCH MCHC RDW Std Deviation RDW Coeff of Maci Plt Count MPV Immature Gran % (Auto) Neut % (Auto) Lymph % (Auto) [place] % (Auto) Eos % (Auto) Baso % (Auto) Immature Gran # (Auto) Neut # (Auto) Lymph # (Auto) [place] # (Auto) Eos # (Auto) Baso # (Auto) Sodium Potassium Chloride Carbon Dioxide Anion Gap BUN Creatinine Est Cr Clr Drug Dosing Est GFR ( Amer) Est GFR (Non-Af Amer) BUN/Creatinine Ratio Glucose POC Glucose 50 L* 49 L* 90 Calcium Phosphorus Magnesium Total Bilirubin AST ALT Alkaline Phosphatase NT-Pro-B Natriuret Pep Total Protein Albumin Globulin Albumin/Globulin Ratio Whole Bld Vitamin B1 Vitamin B12 TSH 09/11/18 09/12/18 09/12/18 20:08 06:04 06:04 WBC 8.84 RBC 2.67 L Hgb 8.5 L Hct 26.6 L MCV 99.6 MCH 31.8 MCHC 32.0 RDW Std Deviation 70.5 H RDW Coeff of Maci 19.5 H Plt Count 222 MPV 9.5 Immature Gran % (Auto) 0.3 Neut % (Auto) 63.7 Lymph % (Auto) 19.5 [place] % (Auto) 13.5 Eos % (Auto) 2.5 Baso % (Auto) 0.5 Immature Gran # (Auto) 0.03 H Neut # (Auto) 5.64 Lymph # (Auto) 1.72 [place] # (Auto) 1.19 H Eos # (Auto) 0.22 Baso # (Auto) 0.04 Sodium 143 Potassium 4.3 Chloride 107 Carbon Dioxide 28 Anion Gap 8.0 BUN 55 H Creatinine 1.38 H Est Cr Clr Drug Dosing 26.7 Est GFR ( Amer) 39.2 Est GFR (Non-Af Amer) 33.8 BUN/Creatinine Ratio 40.1 H Glucose 56 L POC Glucose 125 H Calcium 8.3 L Phosphorus Magnesium Total Bilirubin 0.5 AST 30 ALT 23 Alkaline Phosphatase 97 NT-Pro-B Natriuret Pep 97842 H Total Protein 6.3 L Albumin 2.5 L Globulin 3.8 Albumin/Globulin Ratio 0.7 L Whole Bld Vitamin B1 Vitamin B12 TSH 09/12/18 09/12/18 09/12/18 06:04 07:11 07:12 WBC RBC Hgb Hct MCV MCH MCHC RDW Std Deviation RDW Coeff of Maci Plt Count MPV Immature Gran % (Auto) Neut % (Auto) Lymph % (Auto) [place] % (Auto) Eos % (Auto) Baso % (Auto) Immature Gran # (Auto) Neut # (Auto) Lymph # (Auto) [place] # (Auto) Eos # (Auto) Baso # (Auto) Sodium Potassium Chloride Carbon Dioxide Anion Gap BUN Creatinine Est Cr Clr Drug Dosing Est GFR ( Amer) Est GFR (Non-Af Amer) BUN/Creatinine Ratio Glucose POC Glucose 60 L* 64 L* Calcium Phosphorus 4.5 Magnesium 2.3 Total Bilirubin AST ALT Alkaline Phosphatase NT-Pro-B Natriuret Pep Total Protein Albumin Globulin Albumin/Globulin Ratio Whole Bld Vitamin B1 Vitamin B12 TSH 1.590 09/12/18 09/12/18 09/12/18 07:35 09:39 09:39 WBC RBC Hgb Hct MCV MCH MCHC RDW Std Deviation RDW Coeff of Maci Plt Count MPV Immature Gran % (Auto) Neut % (Auto) Lymph % (Auto) [place] % (Auto) Eos % (Auto) Baso % (Auto) Immature Gran # (Auto) Neut # (Auto) Lymph # (Auto) [place] # (Auto) Eos # (Auto) Baso # (Auto) Sodium Potassium Chloride Carbon Dioxide Anion Gap BUN Creatinine Est Cr Clr Drug Dosing Est GFR ( Amer) Est GFR (Non-Af Amer) BUN/Creatinine Ratio Glucose POC Glucose 104 H Calcium Phosphorus Magnesium Total Bilirubin AST ALT Alkaline Phosphatase NT-Pro-B Natriuret Pep Total Protein Albumin Globulin Albumin/Globulin Ratio Whole Bld Vitamin B1 Pending Vitamin B12 602 TSH 09/12/18 11:39 WBC RBC Hgb Hct MCV MCH MCHC RDW Std Deviation RDW Coeff of Maci Plt Count MPV Immature Gran % (Auto) Neut % (Auto) Lymph % (Auto) [place] % (Auto) Eos % (Auto) Baso % (Auto) Immature Gran # (Auto) Neut # (Auto) Lymph # (Auto) [place] # (Auto) Eos # (Auto) Baso # (Auto) Sodium Potassium Chloride Carbon Dioxide Anion Gap BUN Creatinine Est Cr Clr Drug Dosing Est GFR ( Amer) Est GFR (Non-Af Amer) BUN/Creatinine Ratio Glucose POC Glucose 96 Calcium Phosphorus Magnesium Total Bilirubin AST ALT Alkaline Phosphatase NT-Pro-B Natriuret Pep Total Protein Albumin Globulin Albumin/Globulin Ratio Whole Bld Vitamin B1 Vitamin B12 TSH Medications Administered Home Medications Fleet Enema 133 ml CO DAILY PRN 08/17/18 [History Confirmed 09/10/18] aspirin 81 mg PO DAILY 08/17/18 [History Confirmed 09/10/18] atorvastatin 10 mg PO HS 08/17/18 [History Confirmed 09/10/18] bisacodyl 10 mg CO DAILY PRN 08/17/18 [History Confirmed 09/10/18] carvedilol 12.5 mg PO BIDM 08/17/18 [History Confirmed 09/10/18] cholecalciferol (vitamin D3) [Vitamin D3] 2,000 unit PO DAILY 08/17/18 [History Confirmed 09/10/18] docusate sodium [Colace] 100 mg PO BID PRN 08/17/18 [History Confirmed 09/10/18] enoxaparin [Lovenox] 30 mg SUBCUT DAILY 08/17/18 [History Confirmed 09/10/18] ferrous sulfate 325 mg PO DAILY 08/17/18 [History Confirmed 09/10/18] lidocaine [Lidoderm] 2 patch TOPICAL QAM 08/17/18 [History Confirmed 09/10/18] magnesium hydroxide 30 ml PO DAILY PRN 08/17/18 [History Confirmed 09/10/18] olanzapine 7.5 mg PO HS 08/17/18 [History Confirmed 09/10/18] pantoprazole [Protonix] 40 mg PO BID 08/17/18 [History Confirmed 09/10/18] sertraline 25 mg PO DAILY 08/17/18 [History Confirmed 09/10/18] allopurinol 100 mg PO DAILY #0 tab 08/23/18 [Rx Confirmed 09/10/18] tramadol 50 mg PO Q4H PRN #30 tab 08/23/18 [Rx Confirmed 09/10/18] acetaminophen 650 mg PO Q4H PRN 09/10/18 [History Confirmed 09/10/18] dextrose [Glucose Gel] 40 % PO UD PRN 09/10/18 [History Confirmed 09/10/18] furosemide 40 mg PO DAILY 09/10/18 [History Confirmed 09/10/18] glipizide 2.5 mg PO QDB 09/10/18 [History Confirmed 09/10/18] glucagon (human recombinant) 1 mg SUBCUT UD PRN 09/10/18 [History Confirmed 09/10/18] nystatin 1 applic TOPICAL BID 09/10/18 [History Confirmed 09/10/18] polyethylene glycol 3350 17 g PO DAILY PRN 09/10/18 [History Confirmed 09/10/18] sennosides-docusate sodium [Senna-S] 1 tab PO DAILY PRN 09/10/18 [History Confirmed 09/10/18] vancomycin 125 mg PO Q6H 09/10/18 [History Confirmed 09/10/18] Active Medications Acetaminophen (Tylenol) 650 mg PO Q4H PRN PRN Reason: Pain or Fever Stop: 10/10/18 15:31 Al Hydrox/Mg Hydrox/Simethicone (Maalox) 15 ml PO Q4H PRN PRN Reason: Dyspepsia Stop: 10/10/18 15:31 Allopurinol (Zyloprim) 100 mg PO DAILY [facility] [place] Stop: 10/11/18 08:59 Last Admin: 09/12/18 08:32 Dose: 100 mg Documented by: Aspirin (Ecotrin Ectab) 81 mg PO DAILY [facility] Stop: 10/11/18 08:59 Last Admin: 09/12/18 08:32 Dose: 81 mg Documented by: Atorvastatin Calcium (Lipitor) 10 mg PO HS [facility] [place] Stop: 10/10/18 20:59 Last Admin: 09/11/18 21:06 Dose: Not Given Documented by: Bisacodyl (Dulcolax) 10 mg CO DAILY PRN PRN Reason: Constipation Stop: 10/10/18 15:31 Carvedilol (Coreg) 12.5 mg PO BIDM [facility] [place] Stop: 10/10/18 16:59 Last Admin: 09/12/18 08:32 Dose: 12.5 mg Documented by: Docusate Sodium (Colace) 100 mg PO BID PRN PRN Reason: Constipation Stop: 10/10/18 15:31 Enoxaparin Sodium (Lovenox) 30 mg SQ DAILY [facility] [place] Stop: 10/11/18 08:59 Last Admin: 09/12/18 08:33 Dose: 30 mg Documented by: Ferrous Sulfate (Feosol) 325 mg PO DAILY [facility] [place] Stop: 10/11/18 08:59 Last Admin: 09/12/18 08:32 Dose: 325 mg Documented by: Glipizide (Glucotrol) 2.5 mg PO DAILYBB [facility] [place] Stop: 10/11/18 06:29 Last Admin: 09/12/18 05:50 Dose: 2.5 mg Documented by: Glucagon (Glucagen) 1 mg SQ UD PRN PRN Reason: HYPOGLYCEMIA Stop: 10/10/18 16:02 Last Admin: 09/12/18 07:19 Dose: 1 mg Documented by: Glucose (Glucose 40%) 15 gm PO UD PRN PRN Reason: Hypoglycemia Stop: 10/10/18 15:31 Furosemide 40 mg/ Syringe 4 mls @ 4 mls/min IV DAILY [facility] [place] Stop: 10/11/18 08:59 Last Admin: 09/12/18 08:32 Dose: 4 mls/min Documented by: Lidocaine (Lidoderm 5%) 2 patch TD QAM [facility] [place] Stop: 10/11/18 08:59 Last Admin: 09/12/18 08:32 Dose: 2 patch Documented by: Magnesium Hydroxide (Milk Of Magnesia) 30 ml PO DAILY PRN PRN Reason: CONSTIPATION Stop: 10/10/18 15:47 Miscellaneous (Remove Lidoderm Patch) 1 ea N/A DAILY@2100 [facility] [place] Stop: 10/11/18 20:59 Last Admin: 09/11/18 21:07 Dose: 1 ea Documented by: Nystatin (Mycostatin) 1 appln EXT BID [facility] [place] Stop: 10/10/18 20:59 Last Admin: 09/12/18 08:33 Dose: 1 appln Documented by: Olanzapine (Zyprexa) 7.5 mg PO HS [facility] [place] Stop: 10/10/18 20:59 Last Admin: 09/11/18 21:07 Dose: Not Given Documented by: Ondansetron HCl (Zofran) 4 mg IV Q6H PRN PRN Reason: Nausea Stop: 10/10/18 15:31 Pantoprazole Sodium (Protonix) 40 mg PO BID [facility] [place] Stop: 10/10/18 20:59 Last Admin: 09/12/18 08:31 Dose: 40 mg Documented by: Polyethylene Glycol (Miralax Powder Packet) 17 gm PO QDL PRN PRN Reason: Constipation Stop: 10/10/18 15:31 Raspberry (Raspberry) 5 ml PO Q6H [facility] Stop: 09/24/18 15:59 Last Admin: 09/12/18 10:38 Dose: 5 ml Documented by: Senna/Docusate Sodium (Senokot S) 1 tab PO QDL PRN PRN Reason: Constipation Stop: 10/10/18 15:31 Sodium Biphosphate/Sodium Phosphate (Fleet Enema) 132 ml CO DAILY PRN PRN Reason: Constipation Stop: 10/10/18 15:31 Tramadol HCl (Ultram) 50 mg PO Q4H PRN PRN Reason: Pain Stop: 10/10/18 15:31 Vancomycin HCl (Vancomycin Hcl) 125 mg PO Q6H [facility] Stop: 09/20/18 15:59 Last Admin: 09/12/18 10:38 Dose: 125 mg Documented by: Vitamin D (Vitamin D3) 2,000 units PO DAILY [facility] Stop: 10/11/18 08:59 Last Admin: 09/12/18 08:31 Dose: 2,000 units Documented by:
[2018-09-12] MEDS: GLUCAGON FOR INJ 1 MG VIAL SQ PRN (07:19)
[2018-09-12] MEDS: CHOLECALCIFEROL 1,000 UNITS TAB PO SCH (08:31)
[2018-09-12] MEDS: PANTOprazole 40 MG TAB PO SCH ×2 (08:31→21:31)
[2018-09-12] MEDS: FERROUS SULFATE 325 MG TAB PO SCH (08:32)
[2018-09-12] MEDS: CARVEDILOL 12.5 MG TAB PO SCH ×2 (08:32→16:30)
[2018-09-12] MEDS: ALLOPURINOL 100 MG TAB PO SCH (08:32)
[2018-09-12] MEDS: ASPIRIN 81 MG ECTAB PO SCH (08:32)
[2018-09-12] MEDS: LIDOCAINE 5% 1 PATCH TD SCH (08:32)
[2018-09-12] MEDS: FUROSEMIDE 40 MG in SYRINGE 0 ML IV SCH (08:32)
[2018-09-12] MEDS: NYSTATIN POWDER 15GM BTL EXT SCH ×2 (08:33→21:29)
[2018-09-12] MEDS: ENOXAPARIN INJ 30 MG/0.3 ML SYR SQ SCH (08:33)
[2018-09-12 09:43] LABS: Magnesium 2.3 mg/dl (1.8-2.4); Phosphorus 4.5 mg/dl (2.5-4.9)
[2018-09-12] MEDS ORDERED: CARBOHYDRATES FOR HYPOGLYCEMIA PO PRN (16:24)
[2018-09-12] MEDS: ATORVASTATIN 10 MG TAB PO SCH (21:30)
[2018-09-12] MEDS: OLANZAPINE 2.5 MG TAB PO SCH (21:31)
[2018-09-13] MEDS: RASPBERRY SYRUP 5 ML UDP PO SCH ×4 (04:30→21:34)
[2018-09-13] MEDS: VANCOMYCIN HCL 125 MG/2.5ML SOLN PO SCH ×4 (04:31→21:33)
[2018-09-13 06:05] LABS: Basophils # (auto) 0.04 K/uL (0-0.2); Basophils % (auto) 0.5 %; Eosinophils # (auto) 0.29 K/uL (0-0.5); Eosinophils % (auto) 3.5 %; Hematocrit (blood only) 26.4 % (37-47); Hemoglobin 8.8 g/dL (12.0-16.0); Immature Granulocytes # (auto) 0.03 K/uL (0.00-0.02); Immature Granulocytes % (auto) 0.4 %; Lymphocytes # (auto) 1.81 K/uL (1.2-3.4); Mean Corpuscular Hgb Conc 33.3 g/dL (32-36); Mean Corpuscular Volume 99.2 fL (80-100); Mean Platelet Volume 9.3 fL (7.4-10.4); Monocytes # (auto) 1.16 K/uL (0.11-0.59); Monocytes % (auto) 14.1 %; Neutrophils # (auto) 4.89 K/uL (1.4-6.5); Neutrophils % (auto) 59.5 %; Platelet Count 226 K/uL (130-400); RDW Coefficient of Variation 19.2 % (11.5-14.5); RDW Standard Deviation 69.2 fL (36.4-46.3); Red Blood Count 2.66 M/uL (4.2-5.4); White Blood Count 8.22 K/uL (4.8-10.8)
[2018-09-13 06:35] LABS: BUN Creatinine Ratio 36.9 (10-20); Calcium 7.8 mg/dl (8.5-10.1); Creatinine Clr Calc Pharmacy 21.4 ml/min; Est GFR (African American) 34.3; Est GFR (Non-African American) 29.6; Potassium 4.1 mmol/L (3.5-5.1)
--- NOTE | 2018-09-13 08:13 | Family Medicine Progress Note ---
Date of Service September 13, 2018 Assessment & Plan (1) Altered mental status: 88 y/o F with PMH DM2, CHF, CAD presents with SOB and AMS s/p L hip fx repair in [place] found to have CHF exacerbation. Metabolic Encephalopathy with underlying dementia -Improved -Delirious change possibly due to location change (presence in hospital) and contributing CHF exacerbation. -Of note, pt with hypoglycemic episodes, was on home sulfonylurea glipizide for past few days. Can be contributory. Will d/c with no added novolog yet. -Normal TSH, Mag, Phos, B12 levels. Thiamine level pending. -Will continue to monitor. -PT/OT eval Acute on chronic diastolic CHF/SOB -Symptomatically improving. On 2L oxygen currently. -Loss of 1060ml of fluid overnight. -Continue IV Lasix 40 mg once daily, monitor urine output and daily wts -CXR: Cardiomegaly with stable volume overload and congestive change. Mild pulmonary edema -Recent cardiac ECHO 08/18 revealed normal left ventricular ejection fraction -BNP ~85721 -PT/OT eval Pressure ulcer of left heel, unstageable, POA -continue dressing and boots DM2 -Discontinue Glipizide due to hypoglycemic episodes. -Will monitor sugar levels before starting Novolog and ISS. C. difficile enteritis -On oral vancomycin. Heart Disease -Cont ASA, Atorvastatin, Carvedilol Anemia -Hgb 8.6. Appears at baseline. No concerns for acute bleeding -normocytic, normochromic -Cont daily PO iron -Cont trend h/h Other -Pt currently on Allopurinol and Zyprexa. Chart review did not reveal why pt takes these home meds, however, these were continued here. As pt's mentation improves, can elicit further history FEN/GI: HH/Diabetic Diet DVT prophylaxis: Lovenox SQ DNR/DNI Dispo: Awaiting placement back at [facility] to complete rehab. Supervising Physician Co-Signing Physician Notes Resident Physician Supervision Note: I independently interviewed and examined the patient and verified the araiza history and physical, reviewed labs and image studies, discussed the case with the resident Dr. Rizvi and agree with the findings and care plan. Subjective Ms. Shelby was sleeping in bed but easily arousable to voice. Stated that her breathing was better and she had no new issues. Denied chest pain, SOB, abdominal or leg pain. Review of Systems Review of Systems: All systems reviewed & are unremarkable except as noted in HPI & below Physical Exam Physical Exam: General: Laying in bed eyes closed, responsive to voice this AM and conversant. HEENT: NC/AT, nasal cannula in nares. Chest: Nontender to palpation. CV: RRR. Resp: Breath sounds decreased bilaterally, no increased effort of breathing. Abdomen: Soft, nontender. Extremities:No edema in lower extremities bilaterally. Results & Data Vital Signs (Past 12 Hours) Vital Signs Temp Pulse Resp BP Pulse Ox 09/13/18 07:22 36.8 C 60 20 144/71 H 95 09/13/18 03:20 36.8 C 63 17 147/53 H 97 09/12/18 23:07 36.8 C 64 19 128/76 94 Laboratory Results Laboratory Results - last 24 hr 09/12/18 09/12/18 09/12/18 06:04 09:39 09:39 WBC RBC Hgb Hct MCV MCH MCHC RDW Std Deviation RDW Coeff of Maci Plt Count MPV Immature Gran % (Auto) Neut % (Auto) Lymph % (Auto) Stark % (Auto) Eos % (Auto) Baso % (Auto) Immature Gran # (Auto) Neut # (Auto) Lymph # (Auto) Stark # (Auto) Eos # (Auto) Baso # (Auto) Sodium Potassium Chloride Carbon Dioxide Anion Gap BUN Creatinine Est Cr Clr Drug Dosing Est GFR ( Amer) Est GFR (Non-Af Amer) BUN/Creatinine Ratio Glucose POC Glucose Calcium Phosphorus 4.5 Magnesium 2.3 Whole Bld Vitamin B1 Pending Vitamin B12 602 TSH 1.590 09/12/18 09/12/18 09/12/18 11:39 16:08 16:09 WBC RBC Hgb Hct MCV MCH MCHC RDW Std Deviation RDW Coeff of Maci Plt Count MPV Immature Gran % (Auto) Neut % (Auto) Lymph % (Auto) Stark % (Auto) Eos % (Auto) Baso % (Auto) Immature Gran # (Auto) Neut # (Auto) Lymph # (Auto) Stark # (Auto) Eos # (Auto) Baso # (Auto) Sodium Potassium Chloride Carbon Dioxide Anion Gap BUN Creatinine Est Cr Clr Drug Dosing Est GFR ( Amer) Est GFR (Non-Af Amer) BUN/Creatinine Ratio Glucose POC Glucose 96 52 L* 54 L* Calcium Phosphorus Magnesium Whole Bld Vitamin B1 Vitamin B12 [facility] 09/12/18 09/12/18 09/13/18 16:38 20:21 05:37 WBC 8.22 RBC 2.66 L Hgb 8.8 L Hct 26.4 L MCV 99.2 MCH 33.1 MCHC 33.3 RDW Std Deviation 69.2 H RDW Coeff of Maci 19.2 H Plt Count 226 MPV 9.3 Immature Gran % (Auto) 0.4 Neut % (Auto) 59.5 Lymph % (Auto) 22.0 Stark % (Auto) 14.1 Eos % (Auto) 3.5 Baso % (Auto) 0.5 Immature Gran # (Auto) 0.03 H Neut # (Auto) 4.89 Lymph # (Auto) 1.81 Stark # (Auto) 1.16 H Eos # (Auto) 0.29 Baso # (Auto) 0.04 Sodium Potassium Chloride Carbon Dioxide Anion Gap BUN Creatinine Est Cr Clr Drug Dosing Est GFR ( Amer) Est GFR (Non-Af Amer) BUN/Creatinine Ratio Glucose POC Glucose 73 133 H Calcium Phosphorus Magnesium Whole Bld Vitamin B1 Vitamin B12 [facility] 09/13/18 09/13/18 05:37 07:23 WBC RBC Hgb Hct MCV MCH MCHC RDW Std Deviation RDW Coeff of Maci Plt Count MPV Immature Gran % (Auto) Neut % (Auto) Lymph % (Auto) Stark % (Auto) Eos % (Auto) Baso % (Auto) Immature Gran # (Auto) Neut # (Auto) Lymph # (Auto) Stark # (Auto) Eos # (Auto) Baso # (Auto) Sodium 139 Potassium 4.1 Chloride 105 Carbon Dioxide 28 Anion Gap 6.0 BUN 57 H Creatinine 1.54 H Est Cr Clr Drug Dosing 21.4 Est GFR ( Amer) 34.3 Est GFR (Non-Af Amer) 29.6 BUN/Creatinine Ratio 36.9 H Glucose 89 POC Glucose 102 H Calcium 7.8 L Phosphorus Magnesium Whole Bld Vitamin B1 Vitamin B12 TSH Medications Administered Home Medications Fleet Enema 133 ml AR DAILY PRN 08/17/18 [History Confirmed 09/10/18] aspirin 81 mg PO DAILY 08/17/18 [History Confirmed 09/10/18] atorvastatin 10 mg PO HS 08/17/18 [History Confirmed 09/10/18] bisacodyl 10 mg AR DAILY PRN 08/17/18 [History Confirmed 09/10/18] carvedilol 12.5 mg PO BIDM 08/17/18 [History Confirmed 09/10/18] cholecalciferol (vitamin D3) [Vitamin D3] 2,000 unit PO DAILY 08/17/18 [History Confirmed 09/10/18] docusate sodium [Colace] 100 mg PO BID PRN 08/17/18 [History Confirmed 09/10/18] enoxaparin [Lovenox] 30 mg SUBCUT DAILY 08/17/18 [History Confirmed 09/10/18] ferrous sulfate 325 mg PO DAILY 08/17/18 [History Confirmed 09/10/18] lidocaine [Lidoderm] 2 patch TOPICAL QAM 08/17/18 [History Confirmed 09/10/18] magnesium hydroxide 30 ml PO DAILY PRN 08/17/18 [History Confirmed 09/10/18] olanzapine 7.5 mg PO HS 08/17/18 [History Confirmed 09/10/18] pantoprazole [Protonix] 40 mg PO BID 08/17/18 [History Confirmed 09/10/18] sertraline 25 mg PO DAILY 08/17/18 [History Confirmed 09/10/18] allopurinol 100 mg PO DAILY #0 tab 08/23/18 [Rx Confirmed 09/10/18] tramadol 50 mg PO Q4H PRN #30 tab 08/23/18 [Rx Confirmed 09/10/18] acetaminophen 650 mg PO Q4H PRN 09/10/18 [History Confirmed 09/10/18] dextrose [Glucose Gel] 40 % PO UD PRN 09/10/18 [History Confirmed 09/10/18] furosemide 40 mg PO DAILY 09/10/18 [History Confirmed 09/10/18] glipizide 2.5 mg PO QDB 09/10/18 [History Confirmed 09/10/18] glucagon (human recombinant) 1 mg SUBCUT UD PRN 09/10/18 [History Confirmed 09/10/18] nystatin 1 applic TOPICAL BID 09/10/18 [History Confirmed 09/10/18] polyethylene glycol 3350 17 g PO DAILY PRN 09/10/18 [History Confirmed 09/10/18] sennosides-docusate sodium [Senna-S] 1 tab PO DAILY PRN 09/10/18 [History Confirmed 09/10/18] vancomycin 125 mg PO Q6H 09/10/18 [History Confirmed 09/10/18] Active Medications Acetaminophen (Tylenol) 650 mg PO Q4H PRN PRN Reason: Pain or Fever Stop: 10/10/18 15:31 Al Hydrox/Mg Hydrox/Simethicone (Maalox) 15 ml PO Q4H PRN PRN Reason: Dyspepsia Stop: 10/10/18 15:31 Allopurinol (Zyloprim) 100 mg PO DAILY [facility] Stop: 10/11/18 08:59 Last Admin: 09/12/18 08:32 Dose: 100 mg Documented by: Aspirin (Ecotrin Ectab) 81 mg PO DAILY [facility] Stop: 10/11/18 08:59 Last Admin: 09/13/18 08:19 Dose: 81 mg Documented by: Atorvastatin Calcium (Lipitor) 10 mg PO HS [facility] Stop: 10/10/18 20:59 Last Admin: 09/12/18 21:30 Dose: 10 mg Documented by: Bisacodyl (Dulcolax) 10 mg AR DAILY PRN PRN Reason: Constipation Stop: 10/10/18 15:31 Carvedilol (Coreg) 12.5 mg PO BIDM [facility] Stop: 10/10/18 16:59 Last Admin: 09/13/18 08:19 Dose: 12.5 mg Documented by: Docusate Sodium (Colace) 100 mg PO BID PRN PRN Reason: Constipation Stop: 10/10/18 15:31 Enoxaparin Sodium (Lovenox) 30 mg SQ DAILY [facility] Stop: 10/11/18 08:59 Last Admin: 09/13/18 08:19 Dose: 30 mg Documented by: Ferrous Sulfate (Feosol) 325 mg PO DAILY [facility] Stop: 10/11/18 08:59 Last Admin: 09/13/18 08:19 Dose: 325 mg Documented by: Glucagon (Glucagen) 1 mg SQ UD PRN PRN Reason: HYPOGLYCEMIA Stop: 10/10/18 16:02 Last Admin: 09/12/18 07:19 Dose: 1 mg Documented by: Glucose (Glucose 40%) 15 gm PO UD PRN PRN Reason: Hypoglycemia Stop: 10/10/18 15:31 Furosemide 40 mg/ Syringe 4 mls @ 4 mls/min IV DAILY [facility] Stop: 10/11/18 08:59 Last Admin: 09/12/18 08:32 Dose: 4 mls/min Documented by: Lidocaine (Lidoderm 5%) 2 patch TD QAM [facility] Stop: 10/11/18 08:59 Last Admin: 09/13/18 08:20 Dose: 2 patch Documented by: Magnesium Hydroxide (Milk Of Magnesia) 30 ml PO DAILY PRN PRN Reason: CONSTIPATION Stop: 10/10/18 15:47 Miscellaneous (Remove Lidoderm Patch) 1 ea N/A DAILY@2100 [facility] Stop: 10/11/18 20:59 Last Admin: 09/12/18 21:33 Dose: 1 ea Documented by: Miscellaneous (Carbohydrates For Hypoglycemia) 15 gm PO ONCE PRN PRN Reason: Hypoglycemia Treatment Stop: 10/12/18 16:23 Last Admin: 09/12/18 16:24 Dose: 15 gm Documented by: Nystatin (Mycostatin) 1 appln EXT BID [facility] Stop: 10/10/18 20:59 Last Admin: 09/13/18 08:20 Dose: 1 appln Documented by: Olanzapine (Zyprexa) 7.5 mg PO HS [facility] Stop: 10/10/18 20:59 Last Admin: 09/12/18 21:31 Dose: 7.5 mg Documented by: Ondansetron HCl (Zofran) 4 mg IV Q6H PRN PRN Reason: Nausea Stop: 10/10/18 15:31 Pantoprazole Sodium (Protonix) 40 mg PO BID [facility] Stop: 10/10/18 20:59 Last Admin: 09/13/18 08:19 Dose: 40 mg Documented by: Polyethylene Glycol (Miralax Powder Packet) 17 gm PO QDL PRN PRN Reason: Constipation Stop: 10/10/18 15:31 Raspberry (Raspberry) 5 ml PO Q6H [facility] Stop: 09/24/18 15:59 Last Admin: 09/13/18 04:30 Dose: 5 ml Documented by: Senna/Docusate Sodium (Senokot S) 1 tab PO QDL PRN PRN Reason: Constipation Stop: 10/10/18 15:31 Sodium Biphosphate/Sodium Phosphate (Fleet Enema) 132 ml AR DAILY PRN PRN Reason: Constipation Stop: 10/10/18 15:31 Tramadol HCl (Ultram) 50 mg PO Q4H PRN PRN Reason: Pain Stop: 10/10/18 15:31 Vancomycin HCl (Vancomycin Hcl) 125 mg PO Q6H [facility] Stop: 09/20/18 15:59 Last Admin: 09/13/18 04:31 Dose: 125 mg Documented by: Vitamin D (Vitamin D3) 2,000 units PO DAILY [facility] Stop: 10/11/18 08:59 Last Admin: 09/13/18 08:19 Dose: 2,000 units Documented by: Resident Activity Tracking Resident Involvement: Resident Care Provided Care Provided: Adult Hospital Medicine
[2018-09-13] MEDS: ENOXAPARIN INJ 30 MG/0.3 ML SYR SQ SCH (08:19)
[2018-09-13] MEDS: CHOLECALCIFEROL 1,000 UNITS TAB PO SCH (08:19)
[2018-09-13] MEDS: PANTOprazole 40 MG TAB PO SCH ×2 (08:19→20:23)
[2018-09-13] MEDS: ASPIRIN 81 MG ECTAB PO SCH (08:19)
[2018-09-13] MEDS: FERROUS SULFATE 325 MG TAB PO SCH (08:19)
[2018-09-13] MEDS: CARVEDILOL 12.5 MG TAB PO SCH ×2 (08:19→17:02)
[2018-09-13] MEDS: NYSTATIN POWDER 15GM BTL EXT SCH ×2 (08:20→20:25)
[2018-09-13] MEDS: LIDOCAINE 5% 1 PATCH TD SCH (08:20)
[2018-09-13] MEDS: ALLOPURINOL 100 MG TAB PO SCH (08:44)
[2018-09-13] MEDS: FUROSEMIDE 40 MG in SYRINGE 0 ML IV SCH (08:44)
[2018-09-13] MEDS: ATORVASTATIN 10 MG TAB PO SCH (20:24)
[2018-09-13] MEDS: OLANZAPINE 2.5 MG TAB PO SCH (20:25)
[2018-09-14] MEDS: VANCOMYCIN HCL 125 MG/2.5ML SOLN PO SCH ×4 (04:34→21:05)
[2018-09-14] MEDS: RASPBERRY SYRUP 5 ML UDP PO SCH ×4 (04:35→21:05)
[2018-09-14 07:21] LABS: Basophils # (auto) 0.04 K/uL (0-0.2); Basophils % (auto) 0.5 %; Eosinophils # (auto) 0.25 K/uL (0-0.5); Eosinophils % (auto) 3.2 %; Hemoglobin 9.4 g/dL (12.0-16.0); Immature Granulocytes # (auto) 0.02 K/uL (0.00-0.02); Immature Granulocytes % (auto) 0.3 %; Lymphocytes # (auto) 1.59 K/uL (1.2-3.4); Lymphocytes % (auto) 20.5 %; Mean Corpuscular Hgb Conc 32.4 g/dL (32-36); Mean Corpuscular Volume 99.3 fL (80-100); Mean Platelet Volume 9.5 fL (7.4-10.4); Monocytes # (auto) 1.18 K/uL (0.11-0.59); Monocytes % (auto) 15.2 %; Neutrophils # (auto) 4.66 K/uL (1.4-6.5); Neutrophils % (auto) 60.3 %; Platelet Count 234 K/uL (130-400); Red Blood Count 2.92 M/uL (4.2-5.4); White Blood Count 7.74 K/uL (4.8-10.8)
[2018-09-14 07:52] LABS: BUN Creatinine Ratio 38.4 (10-20); Calcium 8.6 mg/dl (8.5-10.1); Creatinine Clr Calc Pharmacy 23.4 ml/min; Est GFR (African American) 38.2; Est GFR (Non-African American) 32.9; Potassium 4.2 mmol/L (3.5-5.1)
--- NOTE | 2018-09-14 08:20 | Family Medicine Progress Note ---
Date of Service September 14, 2018 Assessment & Plan (1) Altered mental status: 88 y/o F with PMH DM2, CHF, CAD presents with SOB and AMS s/p L hip fx repair in [place] found to have CHF exacerbation. Pt currently awaiting placement at SNF. Metabolic Encephalopathy with underlying dementia -Improved -Delirious change possibly due to location change (presence in hospital) and contributing CHF exacerbation. -Of note, pt with hypoglycemic episodes, was on home sulfonylurea glipizide which could be contributory. Was discontinued. -Started on ISS on 09/14 as glucose levels were elevated once more. -Normal TSH, Mag, Phos, B12 levels. Thiamine level pending. -Will continue to monitor. -PT/OT eval Acute on chronic diastolic CHF/SOB -Symptomatically improving. On 1L oxygen currently. -Loss of 1060ml of fluid overnight. -Continue IV Lasix 40 mg once daily, monitor urine output and daily wts -CXR: Cardiomegaly with stable volume overload and congestive change. Mild pulmonary edema -Recent cardiac ECHO 08/18 revealed normal left ventricular ejection fraction -BNP ~74760 -PT/OT eval Pressure ulcer of left heel, unstageable, POA -continue dressing and boots DM2 -Discontinued Glipizide due to hypoglycemic episodes. -Started on ISS 09/14 as glucose levels became elevated. C. difficile enteritis -On oral vancomycin. Heart Disease -Cont ASA, Atorvastatin, Carvedilol Anemia -Hgb stable. Appears at baseline. No concerns for acute bleeding -normocytic, normochromic -Cont daily PO iron -Cont trend h/h Other -Pt currently on Allopurinol and Zyprexa. Chart review did not reveal why pt takes these home meds, however, these were continued here. As pt's mentation imp roves, can elicit further history FEN/GI: HH/Diabetic Diet DVT prophylaxis: Lovenox SQ DNR/DNI Dispo: Awaiting SNF placement Supervising Physician Co-Signing Physician Notes Resident Physician Supervision Note: I independently interviewed and examined the patient and verified the araiza history and physical, reviewed labs and image studies, discussed the case with the resident Dr. Rizvi and agree with the findings and care plan. Subjective Pt was easily arousable this morning. Stated that she needed some tylenol for her hip pain. Review of Systems Review of Systems: Unobtainable due to cognitive status Physical Exam Physical Exam: General: Laying in bed eyes closed, responsive to voice this AM. HEENT: NC/AT Chest: Nontender to palpation. CV: RRR. Resp: Breath sounds decreased bilaterally, no increased effort of breathing. Abdomen: Soft, nontender. Extremities:No edema in lower extremities bilaterally. Results & Data Vital Signs (Past 12 Hours) Vital Signs Temp Pulse Resp BP Pulse Ox 09/14/18 07:00 36.6 C 62 20 151/64 H 94 09/13/18 23:21 36.5 C 58 L 18 136/51 L 96 Laboratory Results Laboratory Results - last 24 hr 09/13/18 09/13/18 09/13/18 05:37 10:59 11:41 WBC RBC Hgb Hct MCV MCH MCHC RDW Std Deviation RDW Coeff of Maci Plt Count MPV Immature Gran % (Auto) Neut % (Auto) Lymph % (Auto) Sunflower % (Auto) Eos % (Auto) Baso % (Auto) Immature Gran # (Auto) Neut # (Auto) Lymph # (Auto) Sunflower # (Auto) Eos # (Auto) Baso # (Auto) Sodium Potassium Chloride Carbon Dioxide Anion Gap BUN Creatinine Est Cr Clr Drug Dosing Est GFR ( Amer) Est GFR (Non-Af Amer) BUN/Creatinine Ratio Glucose POC Glucose 207 H 198 H Estimat Average Glucose Pending Hemoglobin A1c Pending Calcium 09/14/18 09/14/18 07:07 07:07 WBC 7.74 RBC 2.92 L Hgb 9.4 L Hct 29.0 L MCV 99.3 MCH 32.2 MCHC 32.4 RDW Std Deviation 69.0 H RDW Coeff of Maci 19.0 H Plt Count 234 MPV 9.5 Immature Gran % (Auto) 0.3 Neut % (Auto) 60.3 Lymph % (Auto) 20.5 Sunflower % (Auto) 15.2 Eos % (Auto) 3.2 Baso % (Auto) 0.5 Immature Gran # (Auto) 0.02 Neut # (Auto) 4.66 Lymph # (Auto) 1.59 Sunflower # (Auto) 1.18 H Eos # (Auto) 0.25 Baso # (Auto) 0.04 Sodium 141 Potassium 4.2 Chloride 105 Carbon Dioxide 29 Anion Gap 7.0 BUN 54 H Creatinine 1.41 H Est Cr Clr Drug Dosing 23.4 Est GFR ( Amer) 38.2 Est GFR (Non-Af Amer) 32.9 BUN/Creatinine Ratio 38.4 H Glucose 121 H POC Glucose Estimat Average Glucose Hemoglobin A1c Calcium 8.6 Medications Administered Home Medications Fleet Enema 133 ml ND DAILY PRN 08/17/18 [History Confirmed 09/10/18] aspirin 81 mg PO DAILY 08/17/18 [History Confirmed 09/10/18] atorvastatin 10 mg PO HS 08/17/18 [History Confirmed 09/10/18] bisacodyl 10 mg ND DAILY PRN 08/17/18 [History Confirmed 09/10/18] carvedilol 12.5 mg PO BIDM 08/17/18 [History Confirmed 09/10/18] cholecalciferol (vitamin D3) [Vitamin D3] 2,000 unit PO DAILY 08/17/18 [History Confirmed 09/10/18] docusate sodium [Colace] 100 mg PO BID PRN 08/17/18 [History Confirmed 09/10/18] enoxaparin [Lovenox] 30 mg SUBCUT DAILY 08/17/18 [History Confirmed 09/10/18] ferrous sulfate 325 mg PO DAILY 08/17/18 [History Confirmed 09/10/18] lidocaine [Lidoderm] 2 patch TOPICAL QAM 08/17/18 [History Confirmed 09/10/18] magnesium hydroxide 30 ml PO DAILY PRN 08/17/18 [History Confirmed 09/10/18] olanzapine 7.5 mg PO HS 08/17/18 [History Confirmed 09/10/18] pantoprazole [Protonix] 40 mg PO BID 08/17/18 [History Confirmed 09/10/18] sertraline 25 mg PO DAILY 08/17/18 [History Confirmed 09/10/18] allopurinol 100 mg PO DAILY #0 tab 08/23/18 [Rx Confirmed 09/10/18] tramadol 50 mg PO Q4H PRN #30 tab 08/23/18 [Rx Confirmed 09/10/18] acetaminophen 650 mg PO Q4H PRN 09/10/18 [History Confirmed 09/10/18] dextrose [Glucose Gel] 40 % PO UD PRN 09/10/18 [History Confirmed 09/10/18] furosemide 40 mg PO DAILY 09/10/18 [History Confirmed 09/10/18] glipizide 2.5 mg PO QDB 09/10/18 [History Confirmed 09/10/18] glucagon (human recombinant) 1 mg SUBCUT UD PRN 09/10/18 [History Confirmed 09/10/18] nystatin 1 applic TOPICAL BID 09/10/18 [History Confirmed 09/10/18] polyethylene glycol 3350 17 g PO DAILY PRN 09/10/18 [History Confirmed 09/10/18] sennosides-docusate sodium [Senna-S] 1 tab PO DAILY PRN 09/10/18 [History Confirmed 09/10/18] vancomycin 125 mg PO Q6H 09/10/18 [History Confirmed 09/10/18] Active Medications Acetaminophen (Tylenol) 650 mg PO Q4H PRN PRN Reason: Pain or Fever Stop: 10/10/18 15:31 Last Admin: 09/14/18 09:04 Dose: 650 mg Documented by: Al Hydrox/Mg Hydrox/Simethicone (Maalox) 15 ml PO Q4H PRN PRN Reason: Dyspepsia Stop: 10/10/18 15:31 Allopurinol (Zyloprim) 100 mg PO DAILY [facility] Stop: 10/11/18 08:59 Last Admin: 09/14/18 08:22 Dose: 100 mg Documented by: Aspirin (Ecotrin Ectab) 81 mg PO DAILY [facility] Stop: 10/11/18 08:59 Last Admin: 09/14/18 08:22 Dose: 81 mg Documented by: Atorvastatin Calcium (Lipitor) 10 mg PO HS [facility] Stop: 10/10/18 20:59 Last Admin: 09/13/18 20:24 Dose: 10 mg Documented by: Bisacodyl (Dulcolax) 10 mg ND DAILY PRN PRN Reason: Constipation Stop: 10/10/18 15:31 Carvedilol (Coreg) 12.5 mg PO BIDM [facility] Stop: 10/10/18 16:59 Last Admin: 09/14/18 08:22 Dose: 12.5 mg Documented by: Docusate Sodium (Colace) 100 mg PO BID PRN PRN Reason: Constipation Stop: 10/10/18 15:31 Enoxaparin Sodium (Lovenox) 30 mg SQ DAILY [facility] Stop: 10/11/18 08:59 Last Admin: 09/14/18 08:22 Dose: 30 mg Documented by: Ferrous Sulfate (Feosol) 325 mg PO DAILY [facility] Stop: 10/11/18 08:59 Last Admin: 09/14/18 08:22 Dose: 325 mg Documented by: Glucagon (Glucagen) 1 mg SQ UD PRN PRN Reason: HYPOGLYCEMIA Stop: 10/10/18 16:02 Last Admin: 09/12/18 07:19 Dose: 1 mg Documented by: Glucose (Glucose 40%) 15 gm PO UD PRN PRN Reason: Hypoglycemia Stop: 10/10/18 15:31 Furosemide 40 mg/ Syringe 4 mls @ 4 mls/min IV DAILY [facility] Stop: 10/11/18 08:59 Last Admin: 09/14/18 08:23 Dose: 4 mls/min Documented by: Lidocaine (Lidoderm 5%) 2 patch TD QAM [facility] Stop: 10/11/18 08:59 Last Admin: 09/14/18 08:24 Dose: Not Given Documented by: Magnesium Hydroxide (Milk Of Magnesia) 30 ml PO DAILY PRN PRN Reason: CONSTIPATION Stop: 10/10/18 15:47 Miscellaneous (Remove Lidoderm Patch) 1 ea N/A DAILY@2100 [facility] Stop: 10/11/18 20:59 Last Admin: 09/13/18 20:24 Dose: 1 ea Documented by: Miscellaneous (Carbohydrates For Hypoglycemia) 15 gm PO ONCE PRN PRN Reason: Hypoglycemia Treatment Stop: 10/12/18 16:23 Last Admin: 09/12/18 16:24 Dose: 15 gm Documented by: Nystatin (Mycostatin) 1 appln EXT BID [facility] Stop: 10/10/18 20:59 Last Admin: 09/14/18 08:23 Dose: 1 appln Documented by: Olanzapine (Zyprexa) 7.5 mg PO HS [facility] Stop: 10/10/18 20:59 Last Admin: 09/13/18 20:25 Dose: 7.5 mg Documented by: Ondansetron HCl (Zofran) 4 mg IV Q6H PRN PRN Reason: Nausea Stop: 10/10/18 15:31 Pantoprazole Sodium (Protonix) 40 mg PO BID [facility] Stop: 10/10/18 20:59 Last Admin: 09/14/18 08:22 Dose: 40 mg Documented by: Polyethylene Glycol (Miralax Powder Packet) 17 gm PO QDL PRN PRN Reason: Constipation Stop: 10/10/18 15:31 Raspberry (Raspberry) 5 ml PO Q6H [facility] Stop: 09/24/18 15:59 Last Admin: 09/14/18 08:22 Dose: 5 ml Documented by: Senna/Docusate Sodium (Senokot S) 1 tab PO QDL PRN PRN Reason: Constipation Stop: 10/10/18 15:31 Sodium Biphosphate/Sodium Phosphate (Fleet Enema) 132 ml ND DAILY PRN PRN Reason: Constipation Stop: 10/10/18 15:31 Tramadol HCl (Ultram) 50 mg PO Q4H PRN PRN Reason: Pain Stop: 10/10/18 15:31 Vancomycin HCl (Vancomycin Hcl) 125 mg PO Q6H [facility] Stop: 09/20/18 15:59 Last Admin: 09/14/18 08:22 Dose: 125 mg Documented by: Vitamin D (Vitamin D3) 2,000 units PO DAILY [facility] Stop: 10/11/18 08:59 Last Admin: 09/14/18 08:22 Dose: 2,000 units Documented by: Resident Activity Tracking Resident Involvement: Resident Care Provided Care Provided: Adult Hospital Medicine
[2018-09-14] MEDS: CHOLECALCIFEROL 1,000 UNITS TAB PO SCH (08:22)
[2018-09-14] MEDS: ASPIRIN 81 MG ECTAB PO SCH (08:22)
[2018-09-14] MEDS: ALLOPURINOL 100 MG TAB PO SCH (08:22)
[2018-09-14] MEDS: ENOXAPARIN INJ 30 MG/0.3 ML SYR SQ SCH (08:22)
[2018-09-14] MEDS: FERROUS SULFATE 325 MG TAB PO SCH (08:22)
[2018-09-14] MEDS: CARVEDILOL 12.5 MG TAB PO SCH ×2 (08:22→17:05)
[2018-09-14] MEDS: PANTOprazole 40 MG TAB PO SCH ×2 (08:22→20:04)
[2018-09-14] MEDS: NYSTATIN POWDER 15GM BTL EXT SCH ×2 (08:23→20:04)
[2018-09-14] MEDS: FUROSEMIDE 40 MG in SYRINGE 0 ML IV SCH (08:23)
[2018-09-14] MEDS: LIDOCAINE 5% 1 PATCH TD SCH (08:24)
[2018-09-14] MEDS: ACETAMINOPHEN 325 MG TAB PO PRN ×2 (09:04→22:40)
[2018-09-14] MEDS: INSULIN ASPART 100 UNITS/ML 3 ML PEN SC SCH ×3 (13:47→21:05)
[2018-09-14] MEDS: ATORVASTATIN 10 MG TAB PO SCH (20:04)
[2018-09-14] MEDS: OLANZAPINE 2.5 MG TAB PO SCH (21:05)
[2018-09-15] MEDS: VANCOMYCIN HCL 125 MG/2.5ML SOLN PO SCH ×4 (03:33→21:01)
[2018-09-15] MEDS: RASPBERRY SYRUP 5 ML UDP PO SCH ×4 (03:33→21:00)
[2018-09-15 06:33] LABS: Estimated Average Glucose 131 mg/dl; Hemoglobin A1C 6.2 % (4.5-5.6)
[2018-09-15 06:50] LABS: Basophils # (auto) 0.03 K/uL (0-0.2); Basophils % (auto) 0.4 %; Eosinophils # (auto) 0.31 K/uL (0-0.5); Eosinophils % (auto) 3.9 %; Hematocrit (blood only) 28.8 % (37-47); Hemoglobin 9.1 g/dL (12.0-16.0); Immature Granulocytes # (auto) 0.02 K/uL (0.00-0.02); Immature Granulocytes % (auto) 0.3 %; Lymphocytes # (auto) 1.62 K/uL (1.2-3.4); Lymphocytes % (auto) 20.4 %; Mean Corpuscular Hgb Conc 31.6 g/dL (32-36); Mean Corpuscular Volume 99.3 fL (80-100); Mean Platelet Volume 9.9 fL (7.4-10.4); Monocytes # (auto) 0.91 K/uL (0.11-0.59); Monocytes % (auto) 11.4 %; Neutrophils # (auto) 5.06 K/uL (1.4-6.5); Neutrophils % (auto) 63.6 %; Platelet Count 235 K/uL (130-400); RDW Coefficient of Variation 18.8 % (11.5-14.5); RDW Standard Deviation 68.6 fL (36.4-46.3); White Blood Count 7.95 K/uL (4.8-10.8)
[2018-09-15 07:21] LABS: Calcium 8.2 mg/dl (8.5-10.1); Creatinine Clr Calc Pharmacy 18.7 ml/min; Est GFR (African American) 29.2; Est GFR (Non-African American) 25.2; Potassium 3.7 mmol/L (3.5-5.1)
[2018-09-15] MEDS: FERROUS SULFATE 325 MG TAB PO SCH (09:01)
[2018-09-15] MEDS: CHOLECALCIFEROL 1,000 UNITS TAB PO SCH (09:01)
[2018-09-15] MEDS: ASPIRIN 81 MG ECTAB PO SCH (09:01)
[2018-09-15] MEDS: PANTOprazole 40 MG TAB PO SCH ×2 (09:01→20:59)
[2018-09-15] MEDS: ALLOPURINOL 100 MG TAB PO SCH (09:02)
[2018-09-15] MEDS: ENOXAPARIN INJ 30 MG/0.3 ML SYR SQ SCH (09:02)
[2018-09-15] MEDS: CARVEDILOL 12.5 MG TAB PO SCH ×2 (09:02→16:51)
[2018-09-15] MEDS: LIDOCAINE 5% 1 PATCH TD SCH (09:03)
[2018-09-15] MEDS: NYSTATIN POWDER 15GM BTL EXT SCH ×2 (09:03→20:58)
[2018-09-15] MEDS: INSULIN ASPART 100 UNITS/ML 3 ML PEN SC SCH ×4 (09:04→20:37)
--- NOTE | 2018-09-15 14:11 | Family Medicine Progress Note ---
Date of Service September 15, 2018 Assessment & Plan (1) Altered mental status: 88 y/o F with PMH DM2, CHF, CAD presents with SOB and AMS s/p L hip fx repair in [place] found to have CHF exacerbation. Pt currently awaiting placement at SNF. Metabolic Encephalopathy with underlying dementia -Improved. A&Ox3 today -Delirious change possibly due to location change (presence in hospital) and contributing CHF exacerbation. -Of note, pt with hypoglycemic episodes, was on home sulfonylurea glipizide which could be contributory. Was discontinued. -Started on ISS on 09/14 as glucose levels were elevated once more. -Normal TSH, Mag, Phos, B12 levels, Thiamine -Will continue to monitor. Acute on chronic diastolic CHF/SOB -Symptomatically improving. On 1.5 L oxygen currently -Held IV Lasix 40 mg daily today given worsening Cr. Will restart tomorrow if improvement in Cr. BMP script on d/c (09/19) -Cont monitor urine output and daily wts. Overall (-)3L here. -CXR: Cardiomegaly with stable volume overload and congestive change. Mild pulmonary edema -Recent cardiac ECHO 08/18 revealed normal left ventricular ejection fraction -PT/OT eval- recs snf placement Pressure ulcer of left heel, unstageable, POA -continue dressing and boots DM2 -Discontinued Glipizide due to hypoglycemic episodes. -Started on ISS 09/14 as glucose levels became elevated. C. difficile enteritis -On oral vancomycin. Heart Disease -Cont ASA, Atorvastatin, Carvedilol Anemia -Hgb stable. Appears at baseline. No concerns for acute bleeding -normocytic, normochromic -Cont daily PO iron -Cont trend h/h Other -Pt currently on Allopurinol and Zyprexa. Chart review did not reveal why pt takes these home meds, however, these were continued here. As pt's mentation improves, can elicit further history FEN/GI: HH/Diabetic Diet DVT prophylaxis: Lovenox SQ DNR/DNI Dispo: Awaiting SNF placement. [facility] do have some short term rehab beds available. CM f/u w/ [facility] as this was pt's first choice. Likely d/c tomorrow. (2) DM2 (diabetes mellitus, type 2): (3) CHF (congestive heart failure): (4) Acute on chronic diastolic CHF (congestive heart failure): (5) C. difficile enteritis: Supervising Physician Co-Signing Physician Notes I personally examined the patient and verified all araiza points of history and exam, discussed case, and agree with decision making with Dr Roberts. Feeling okay. Breathing okay. Awaiting SNF placement. Vitals noted, in general she is awake and alert pleasant no distress. HEENT normocephalic atraumatic mucous membranes moist. Breathing unlabored no accessory muscle use good effort. Skin shows no rashes no pallor or icterus. Acute on chronic diastolic CHFappears to be fairly euvolemic. Creatinine bumped a little bit, so Lasix held today. Anticipate resuming at her home dose with strict low-sodium diet. Dispositionawaiting SNF placement. Subjective 88 y/o F found in bed this AM in NAD. No reported overnight events. States feels ok. Mentation seems improved yet. Was A&Ox~3. Tolerating PO intake. No issues voiding. No other acute concerns or complaints. Awaiting placement into snf. Review of Systems Review of Systems: All systems reviewed & are unremarkable except as noted in HPI & below Physical Exam Constitutional: WD/WN, vitals as above Eyes: PERRL, conjunctivae normal, anicteric sclerae ENMT: external ear and nose normal, oropharynx normal Respiratory: normal respiratory effort Some decreased breath sounds b/l Cardiovascular: RRR, no murmur, no edema Gastrointestinal (Abdomen): normal bowel sounds, soft, nontender, no hepatosplenomegaly Skin: no rashes, warm and dry Psychiatric: Able to state location, month, and self. Results & Data Vital Signs (Past 12 Hours) Vital Signs Temp Pulse Resp BP BP Pulse Ox 09/15/18 06:59 36.3 C L 60 18 158/77 H 99 09/15/18 03:54 36.7 C 62 20 128/58 L 96 Laboratory Results Laboratory Results - last 24 hr 09/13/18 09/14/18 09/14/18 05:37 16:44 21:04 WBC RBC Hgb Hct MCV MCH MCHC RDW Std Deviation RDW Coeff of Maci Plt Count MPV Immature Gran % (Auto) Neut % (Auto) Lymph % (Auto) Harrison % (Auto) Eos % (Auto) Baso % (Auto) Immature Gran # (Auto) Neut # (Auto) Lymph # (Auto) Harrison # (Auto) Eos # (Auto) Baso # (Auto) Sodium Potassium Chloride Carbon Dioxide Anion Gap BUN Creatinine Est Cr Clr Drug Dosing Est GFR ( Amer) Est GFR (Non-Af Amer) BUN/Creatinine Ratio Glucose POC Glucose 127 H 169 H Estimat Average Glucose 131 Hemoglobin A1c 6.2 H Calcium 09/15/18 09/15/18 09/15/18 06:38 06:38 07:40 WBC 7.95 RBC 2.90 L Hgb 9.1 L Hct 28.8 L MCV 99.3 MCH 31.4 MCHC 31.6 L RDW Std Deviation 68.6 H RDW Coeff of Maci 18.8 H Plt Count 235 MPV 9.9 Immature Gran % (Auto) 0.3 Neut % (Auto) 63.6 Lymph % (Auto) 20.4 Harrison % (Auto) 11.4 Eos % (Auto) 3.9 Baso % (Auto) 0.4 Immature Gran # (Auto) 0.02 Neut # (Auto) 5.06 Lymph # (Auto) 1.62 Harrison # (Auto) 0.91 H Eos # (Auto) 0.31 Baso # (Auto) 0.03 Sodium 140 Potassium 3.7 Chloride 105 Carbon Dioxide 28 Anion Gap 7.0 BUN 56 H Creatinine 1.76 H D Est Cr Clr Drug Dosing 18.7 Est GFR ( Amer) 29.2 Est GFR (Non-Af Amer) 25.2 BUN/Creatinine Ratio 32.0 H Glucose 113 H POC Glucose 122 H Estimat Average Glucose Hemoglobin A1c Calcium 8.2 L 09/15/18 11:22 WBC RBC Hgb Hct MCV MCH MCHC RDW Std Deviation RDW Coeff of Maci Plt Count MPV Immature Gran % (Auto) Neut % (Auto) Lymph % (Auto) Harrison % (Auto) Eos % (Auto) Baso % (Auto) Immature Gran # (Auto) Neut # (Auto) Lymph # (Auto) Harrison # (Auto) Eos # (Auto) Baso # (Auto) Sodium Potassium Chloride Carbon Dioxide Anion Gap BUN Creatinine Est Cr Clr Drug Dosing Est GFR ( Amer) Est GFR (Non-Af Amer) BUN/Creatinine Ratio Glucose POC Glucose 189 H Estimat Average Glucose Hemoglobin A1c Calcium Medications Administered Current Inpatient Medications Acetaminophen (Tylenol) 650 mg PO Q4H PRN PRN Reason: Pain or Fever Stop: 10/10/18 15:31 Last Admin: 09/14/18 22:40 Dose: 650 mg Documented by: Al Hydrox/Mg Hydrox/Simethicone (Maalox) 15 ml PO Q4H PRN PRN Reason: Dyspepsia Stop: 10/10/18 15:31 Allopurinol (Zyloprim) 100 mg PO DAILY [facility] Stop: 10/11/18 08:59 Last Admin: 09/15/18 09:02 Dose: 100 mg Documented by: Aspirin (Ecotrin Ectab) 81 mg PO DAILY [facility] Stop: 10/11/18 08:59 Last Admin: 09/15/18 09:01 Dose: 81 mg Documented by: Atorvastatin Calcium (Lipitor) 10 mg PO HS [facility] Stop: 10/10/18 20:59 Last Admin: 09/14/18 20:04 Dose: 10 mg Documented by: Bisacodyl (Dulcolax) 10 mg AR DAILY PRN PRN Reason: Constipation Stop: 10/10/18 15:31 Carvedilol (Coreg) 12.5 mg PO BIDM [facility] Stop: 10/10/18 16:59 Last Admin: 09/15/18 09:02 Dose: 12.5 mg Documented by: Docusate Sodium (Colace) 100 mg PO BID PRN PRN Reason: Constipation Stop: 10/10/18 15:31 Enoxaparin Sodium (Lovenox) 30 mg SQ DAILY [facility] Stop: 10/11/18 08:59 Last Admin: 09/15/18 09:02 Dose: 30 mg Documented by: Ferrous Sulfate (Feosol) 325 mg PO DAILY [facility] Stop: 10/11/18 08:59 Last Admin: 09/15/18 09:01 Dose: 325 mg Documented by: Glucagon (Glucagen) 1 mg SQ UD PRN PRN Reason: HYPOGLYCEMIA Stop: 10/10/18 16:02 Last Admin: 09/12/18 07:19 Dose: 1 mg Documented by: Glucose (Glucose 40%) 15 gm PO UD PRN PRN Reason: Hypoglycemia Stop: 10/10/18 15:31 Furosemide 40 mg/ Syringe 4 mls @ 4 mls/min IV DAILY [facility] Stop: 10/11/18 08:59 Last Admin: 09/14/18 08:23 Dose: 4 mls/min Documented by: Insulin Aspart (Novolog Flexpen) 0 units SC ACHS [facility] Stop: 10/14/18 11:29 Last Admin: 09/15/18 12:38 Dose: 3 units Documented by: Lidocaine (Lidoderm 5%) 2 patch TD QAM [facility] Stop: 10/11/18 08:59 Last Admin: 09/15/18 09:03 Dose: 2 patch Documented by: Magnesium Hydroxide (Milk Of Magnesia) 30 ml PO DAILY PRN PRN Reason: CONSTIPATION Stop: 10/10/18 15:47 Miscellaneous (Remove Lidoderm Patch) 1 ea N/A DAILY@2100 [facility] Stop: 10/11/18 20:59 Last Admin: 09/14/18 20:06 Dose: Not Given Documented by: Miscellaneous (Carbohydrates For Hypoglycemia) 15 gm PO ONCE PRN PRN Reason: Hypoglycemia Treatment Stop: 10/12/18 16:23 Last Admin: 09/12/18 16:24 Dose: 15 gm Documented by: Nystatin (Mycostatin) 1 appln EXT BID MARGARET Stop: 10/10/18 20:59 Last Admin: 09/15/18 09:03 Dose: 1 appln Documented by: Olanzapine (Zyprexa) 7.5 mg PO HS [facility] Stop: 10/10/18 20:59 Last Admin: 09/14/18 21:05 Dose: 7.5 mg Documented by: Ondansetron HCl (Zofran) 4 mg IV Q6H PRN PRN Reason: Nausea Stop: 10/10/18 15:31 Pantoprazole Sodium (Protonix) 40 mg PO BID [facility] Stop: 10/10/18 20:59 Last Admin: 09/15/18 09:01 Dose: 40 mg Documented by: Polyethylene Glycol (Miralax Powder Packet) 17 gm PO QDL PRN PRN Reason: Constipation Stop: 10/10/18 15:31 Last Admin: 09/15/18 09:03 Dose: 17 gm Documented by: Raspberry (Raspberry) 5 ml PO Q6H [facility] Stop: 09/24/18 15:59 Last Admin: 09/15/18 09:59 Dose: 5 ml Documented by: Senna/Docusate Sodium (Senokot S) 1 tab PO QDL PRN PRN Reason: Constipation Stop: 10/10/18 15:31 Sodium Biphosphate/Sodium Phosphate (Fleet Enema) 132 ml AR DAILY PRN PRN Reason: Constipation Stop: 10/10/18 15:31 Tramadol HCl (Ultram) 50 mg PO Q4H PRN PRN Reason: Pain Stop: 10/10/18 15:31 Vancomycin HCl (Vancomycin Hcl) 125 mg PO Q6H [facility] Stop: 09/20/18 15:59 Last Admin: 09/15/18 09:59 Dose: 125 mg Documented by: Vitamin D (Vitamin D3) 2,000 units PO DAILY [facility] Stop: 10/11/18 08:59 Last Admin: 09/15/18 09:01 Dose: 2,000 units Documented by: Resident Activity Tracking Resident Involvement: Resident Care Provided Care Provided: Adult Hospital Medicine
[2018-09-15] MEDS: ATORVASTATIN 10 MG TAB PO SCH (20:58)
[2018-09-15] MEDS: OLANZAPINE 2.5 MG TAB PO SCH (20:59)
[2018-09-16] MEDS: RASPBERRY SYRUP 5 ML UDP PO SCH ×2 (03:56→08:20)
[2018-09-16] MEDS: VANCOMYCIN HCL 125 MG/2.5ML SOLN PO SCH ×2 (03:56→08:19)
[2018-09-16 07:10] LABS: Basophils # (auto) 0.02 K/uL (0-0.2); Basophils % (auto) 0.3 %; Eosinophils # (auto) 0.18 K/uL (0-0.5); Eosinophils % (auto) 2.4 %; Hematocrit (blood only) 28.3 % (37-47); Hemoglobin 9.1 g/dL (12.0-16.0); Immature Granulocytes # (auto) 0.02 K/uL (0.00-0.02); Immature Granulocytes % (auto) 0.3 %; Lymphocytes # (auto) 1.41 K/uL (1.2-3.4); Mean Corpuscular Hgb Conc 32.2 g/dL (32-36); Mean Corpuscular Volume 99.6 fL (80-100); Mean Platelet Volume 9.6 fL (7.4-10.4); Monocytes # (auto) 0.82 K/uL (0.11-0.59); Monocytes % (auto) 11.1 %; Neutrophils # (auto) 4.97 K/uL (1.4-6.5); Neutrophils % (auto) 66.9 %; Platelet Count 236 K/uL (130-400); RDW Coefficient of Variation 18.7 % (11.5-14.5); RDW Standard Deviation 68.1 fL (36.4-46.3); Red Blood Count 2.84 M/uL (4.2-5.4); White Blood Count 7.42 K/uL (4.8-10.8)
[2018-09-16 07:51] LABS: Albumin Level 2.4 gm/dl (3.4-5.0); BUN Creatinine Ratio 33.3 (10-20); Calcium 8.4 mg/dl (8.5-10.1); Creatinine Clr Calc Pharmacy 22.9 ml/min; Est GFR (African American) 37.2; Est GFR (Non-African American) 32.1; Potassium 4.2 mmol/L (3.5-5.1)
[2018-09-16 07:54] LABS: Albumin Globulin Ratio 0.6 (0.9-2); Bilirubin,Total 0.3 mg/dl (0.2-1); Globulin 3.9 gm/dl (2.5-4.0); Total Protein 6.3 gm/dl (6.4-8.2)
[2018-09-16] MEDS: PANTOprazole 40 MG TAB PO SCH (08:20)
[2018-09-16] MEDS: CARVEDILOL 12.5 MG TAB PO SCH (08:20)
[2018-09-16] MEDS: ALLOPURINOL 100 MG TAB PO SCH (08:20)
[2018-09-16] MEDS: FERROUS SULFATE 325 MG TAB PO SCH (08:20)
[2018-09-16] MEDS: CHOLECALCIFEROL 1,000 UNITS TAB PO SCH (08:20)
[2018-09-16] MEDS: NYSTATIN POWDER 15GM BTL EXT SCH (08:21)
[2018-09-16] MEDS: ENOXAPARIN INJ 30 MG/0.3 ML SYR SQ SCH (08:21)
[2018-09-16] MEDS: ASPIRIN 81 MG ECTAB PO SCH (08:21)
[2018-09-16] MEDS: LIDOCAINE 5% 1 PATCH TD SCH (08:21)
[2018-09-16] MEDS: INSULIN ASPART 100 UNITS/ML 3 ML PEN SC SCH ×2 (08:22→12:19)
[2018-09-16] MEDS: FUROSEMIDE 40 MG in SYRINGE 0 ML IV SCH (10:25)
--- NOTE | 2018-09-16 13:51 | Discharge Summary ---
Date of Service September 16, 2018 Admission HPI Per Admitting Provider Shortness of breath, altered mental status 88-year-old female who recently had a left hip fracture repair in [place]. She was at [facility] when she was admitted in early August with volume depletion, acute kidney injury, UTI, C. difficile enteritis. Now she has some shortness of breath and altered mental status. She appears to have mild congestive heart failure. Cardiac echo done 1 month ago reveals normal left ventricular ejection fraction. This appears to be diastolic CHF. Head CT scan reveals no changes. She probably has a degree of dementia and may even have some acute hospital related delirium. She is oriented to name only at the time of my examination but is pleasant and conversant. She has a Zelaya catheter in place now and has been given Lasix in the ED. Oxygen saturation is 90% on 2 L. She will continue with vancomycin orally. She has completed her course of Cipro for the E. coli UTI. She is a DNR patient. Principal Diagnosis chf exacerbation Discharge Exam Constitutional WD/WN, vitals as above Eyes PERRL, conjunctivae normal, anicteric sclerae ENMT external ear and nose normal, oropharynx normal Respiratory normal respiratory effort Cardiovascular RRR, no murmur, no edema Gastrointestinal (Abdomen) normal bowel sounds, soft, nontender, no hepatosplenomegaly Skin no rashes, warm and dry Psychiatric A+Ox3, euthymic affect Discharge Data Allergies Allergy/AdvReac Type Severity Reaction Status Date / Time No Known Allergies Allergy Unverified 08/17/18 10:54 Ordered Studies 09/10/18 13:03 CT head/brain wo con Stat Hospital Course (1) Altered mental status: 88 y/o F with PMH DM2, CHF, CAD presented with SOB and AMS s/p L hip fx repair in [place] and found to have CHF exacerbation. The following is the medical management during stay here: Metabolic Encephalopathy with underlying dementia -This delirious change was possibly due to location change (presence in hospital) and contributing CHF exacerbation. Of note, pt did have a few hypoglycemic episodes here, was on home sulfonylurea glipizide which could be contributory so this was discontinued. We started on ISS and glucose levels were elevated once more. Labs were normal here including TSH, Mag, Phos, B12 levels, Thiamine. Pt's mentation improved after a few days and was A&Ox3 on day of d/c. Acute on chronic diastolic CHF/SOB -Initial CXR: Cardiomegaly with stable volume overload and congestive change. Mild pulmonary edema. Recent cardiac ECHO 08/18 revealed normal left ventricular ejection fraction. Pt's CHF symptomatically improved and pt was on 1.5 L oxygen on day of d/c. Pt was cont on IV Lasix 40 mg daily. This was held given worsening Cr the day before d/c, but this was improved and Lasix was restarted. A BMP script for 09/19 was given to pt to f/u on kidney function, and you may adjust Lasix accordingly. Until then, pt will cont on Lasix. PT/OT evaluated pt here and recs snf placement. Pressure ulcer of left heel, unstageable, POA -We continued dressing and boots DM2 -We discontinued Glipizide due to hypoglycemic episodes as above and started on ISS. BSGs were well controlled here. On d/c, pt will resume normal regimen. C. difficile enteritis -On oral vancomycin. This will cont on d/c. Heart Disease -Cont ASA, Atorvastatin, Carvedilol Anemia -Hgb stable. Appears at baseline. No concerns for acute bleeding. This was normocytic, normochromic. We cont daily PO iron. Other -Pt currently on Allopurinol and Zyprexa. Chart review did not reveal why pt takes these home meds, however, these were continued here. As pt's mentation improves, can elicit further history. At time of d/c, pt had no other acute concerns or complaints. Total Time Total Time Spent Total Time Spent (In Minutes): <30 min Discharge Plan Discharge Items Patient Disposition: Transfer [facility] Reason For Visit: CHF Discharge Diagnosis: Altered mental Status, CHF Exacerbation Discharge Goals: Decrease discomfort, Improve disease control and Improve function Activity: Per 'Additional Instructions' section Non-emergency contact: Primary Care Provider Call non-emergency contact if: your symptoms worsen and you have a fever Follow-up/Referrals: [facility] [Primary Care Provider] - Diet: Heart Healthy and Low Sodium (2gm) Addtl Provider Instructions: 88 y/o F with PMH DM2, CHF, CAD presented with SOB and AMS s/p L hip fx repair in [place] and found to have CHF exacerbation. The following is the medical management during stay here: Metabolic Encephalopathy with underlying dementia -This delirious change was possibly due to location change (presence in hospital) and contributing CHF exacerbation. Of note, pt did have a few hypoglycemic episodes here, was on home sulfonylurea glipizide which could be contributory so this was discontinued. We started on ISS and glucose levels were elevated once more. Labs were normal here including TSH, Mag, Phos, B12 levels, Thiamine. Pt's mentation improved after a few days and was A&Ox3 on day of d/c. Acute on chronic diastolic CHF/SOB -Initial CXR: Cardiomegaly with stable volume overload and congestive change. Mild pulmonary edema. Recent cardiac ECHO 08/18 revealed normal left ventricular ejection fraction. Pt's CHF symptomatically improved and pt was on 1.5 L oxygen on day of d/c. Pt was cont on IV Lasix 40 mg daily. This was held given worsening Cr the day before d/c, but this was improved and Lasix was restarted. A BMP script for 09/19 was given to pt to f/u on kidney function, and you may adjust Lasix accordingly. Until then, pt will cont on Lasix. PT/OT evaluated pt here and recs snf placement. Pressure ulcer of left heel, unstageable, POA -We continued dressing and boots DM2 -We discontinued Glipizide due to hypoglycemic episodes as above and started on ISS. BSGs were well controlled here. On d/c, pt will resume normal regimen. C. difficile enteritis -On oral vancomycin. This will cont on d/c. Heart Disease -Cont ASA, Atorvastatin, Carvedilol Anemia -Hgb stable. Appears at baseline. No concerns for acute bleeding. This was normocytic, normochromic. We cont daily PO iron. Other -Pt currently on Allopurinol and Zyprexa. Chart review did not reveal why pt takes these home meds, however, these were continued here. As pt's mentation improves, can elicit further history. At time of d/c, pt had no other acute concerns or complaints. Prescriptions: Continued carvedilol 12.5 mg Tablet 12.5 mg PO BIDM RF: 0 atorvastatin 10 mg Tablet 10 mg PO HS RF: 0 olanzapine 5 mg Tablet 7.5 mg PO HS RF: 0 aspirin 81 mg Tablet,Delayed Release (Dr/Ec) 81 mg PO DAILY RF: 0 bisacodyl 10 mg Suppository 10 mg NJ DAILY PRN (Reason: Constipation) RF: 0 pantoprazole [Protonix] 40 mg Tablet,Delayed Release (Dr/Ec) 40 mg PO BID RF: 0 ferrous sulfate 325 mg (65 mg iron) Tablet 325 mg PO DAILY RF: 0 lidocaine [Lidoderm] 5 % Adhesive Patch,Medicated 2 patch TOPICAL QAM RF: 0 Fleet Enema 19-7 gram/118 mL Enema 133 ml NJ DAILY PRN (Reason: Constipation) RF: 0 docusate sodium [Colace] 100 mg Capsule 100 mg PO BID PRN (Reason: Constipation) RF: 0 sertraline 25 mg Tablet 25 mg PO DAILY RF: 0 enoxaparin [Lovenox] 30 mg/0.3 mL Syringe 30 mg SUBCUT DAILY RF: 0 magnesium hydroxide 2,400 mg/10 mL Suspension 30 ml PO DAILY PRN (Reason: Constipation) RF: 0 cholecalciferol (vitamin D3) [Vitamin D3] 2,000 unit Capsule 2,000 unit PO DAILY RF: 0 tramadol 50 mg Tablet 50 mg PO Q4H PRN (Reason: Pain) Qty: 30 RF: 0 allopurinol 300 mg Tablet 100 mg PO DAILY Qty: 0 RF: 0 acetaminophen 325 mg Tablet 650 mg PO Q4H PRN (Reason: Pain) RF: 0 polyethylene glycol 3350 17 gram Powder In Packet 17 g PO DAILY PRN (Reason: Constipation) RF: 0 sennosides-docusate sodium [Senna-S] 8.6-50 mg Tablet 1 tab PO DAILY PRN (Reason: Constipation) RF: 0 dextrose [Glucose Gel] 40 % Gel 40 % PO UD PRN (Reason: Hypoglycemia) RF: 0 vancomycin 125 mg Capsule 125 mg PO Q6H RF: 0 nystatin 100,000 unit/gram Powder 1 applic TOPICAL BID RF: 0 glipizide 5 mg Tablet 2.5 mg PO QDB RF: 0 glucagon (human recombinant) 1 mg Recon Soln 1 mg subcut UD PRN (Reason: Hypoglycemia) RF: 0 furosemide 40 mg tablet 40 mg PO DAILY RF: 0 Stand-Alone Forms: [facility] Discharge Orders: Discharge Order (Routine); Ordered 09/16/18 Ordered By: Kobi Roberts Skilled Items Patient informed of condition?: Yes DNR: Yes Discharge Level of Care: Skilled Communicable Disease: Yes (c.diff infection) Discharge Prognosis: Stable Admission Data Admit Date/Time: 09/10/18 14:33 Attending Provider: Ronnell Ngo Admit Provider: Rony Thayer Primary Care Provider: Danielle Downey Other Providers: Rony Thayer ; Stephani Cartwright Service: Medical Other Interventions: Discharge Summary Assessment (RN) Last Done: 09/16/18 13:10 DC Date/Time DO NOT enter until pt leaves facility: 09/16/18 15:34 Supervising Physician Co-Signing Physician Notes I personally examined the patient and verified all araiza points of history and exam, discussed case, and agree with decision making with Dr Roberts. Feeling okay. Breathing okay. Stable for SNF placement Vitals noted, in general she is awake and alert pleasant no distress. HEENT normocephalic atraumatic mucous membranes moist. Breathing unlabored no accessory muscle use good effort. Skin shows no rashes no pallor or icterus. Acute on chronic diastolic CHFclinically appears euvolemic to may be slightly dry. Stable for transfer to SNF. Continue to follow volume status and adjust Lasix accordingly. Repeat basic metabolic panel every 2 to 3 days or as clinically warranted. Dispositionstable for SNF Resident Activity Tracking Resident Involvement: Resident Care Provided Care Provided: Adult Hospital Medicine
== END 2018-09-16 15:34 | DRG 291 ==
LOC: ED 08:52 → SUATTDRO 14:33 → 2S 14:33 → 2W 09-13 11:32